=== PATIENT | female | born 1945 | race Caucasian/White ===

== ENCOUNTER → 2019-11-05 11:18 | Outpatient (CLI) | payer MEDICARE, SELFPAY ==
--- NOTE | ~2019-11-05 | MM_ITS ---
EXAMINATION: MM screening kj BI w patti HISTORY: Screening mammogram TECHNIQUE: Craniocaudal and mediolateral oblique 3-D tomosynthesis images were obtained and synthetic 2-D images were generated. CAD analysis was submitted and interpreted. COMPARISON: Comparison to multiple prior studies sequentially, with oldest reviewed study dated 08/10. BREAST PARENCHYMAL COMPOSITION: Breast composed of scattered areas of fibroglandular density. FINDINGS: There are developing scattered focal asymmetries in the right breast. There are developing masses in the upper outer quadrant of the left breast and central aspect of the left breast on CC vie w. There are scattered benign-appearing breast calcifications. IMPRESSION: 1. Developing bilateral breast asymmetries/masses. 2. Additional mammographic views and possible breast ultrasound are recommended. BI-RADS Category 0: Incomplete: Needs additional imaging evaluation. Reviewed, dictated and finalized at location A. INTERNSHIP IMPRESSION: 1. Developing bilateral breast asymmetries/masses. 2. Additional mammographic views and possible breast ultrasound are recommended . BI-RADS Category 0: Incomplete: Needs additional imaging evaluation.
== END ==
PROVIDERS: Visit Provider Internal Medicine
DX: Z12.31 Encounter for screening mammogram for malignant neoplasm of breast (principal); R92.8 Other abnormal and inconclusive findings on diagnostic imaging of breast
CPT/HCPCS: 77063; 77067

== ENCOUNTER → 2019-11-19 08:49 | Outpatient (CLI) | payer MEDICARE, SELFPAY ==
--- NOTE | ~2019-11-19 | MMUS_ITS ---
EXAMINATION: MM diagnostic mammo BI, US breast LT limited HISTORY: Bilateral breast asymmetries on screening mammogram TECHNIQUE: Additional 3-D tomosynthesis images of the breasts were performed and synthetic 2-D images were generated. CAD analysis was submitted and interpreted. High resolution limited left breast ultr asound was performed. COMPARISON: 11/05/2017, 10/17/2018, 09/02/2018, 08/31/2017, 08/29/2016 FINDINGS: MAMMOGRAPHIC FINDINGS: Right breast: Spot compression of the right breast demonstrates a return to baseline fibroglandular a ppearance in the areas questioned on screening mammogram. Left breast: There is a 5 mm oval, obscured, equal density mass in the middle third of the breast at the 6:00 location 7 cm from the nipple. An intramammary lymph node is noted in the posterior third of the outer breast. ULTRASOUND: There are cysts at the 6:00 location in the left breast which measure up to 5 mm, one of which corres ponds to the mammographic finding in question. IMPRESSION: 1. No mammographic or sonographic evidence of malignancy. 2. Recommend routine screening mammography in one year. BI-RADS Category 2: Benign finding(s). Reviewed, dictated and finalized at location A. IMPRESSION: 1. No mammographic or sonographic evidence of malignancy. 2. Recommend routine screening mammography in one year. BI-RADS Category 2: Benign finding(s).
== END ==
PROVIDERS: Visit Provider Internal Medicine
DX: R92.8 Other abnormal and inconclusive findings on diagnostic imaging of breast (principal)
CPT/HCPCS: 76642; 77066

== ENCOUNTER → 2021-01-31 14:14 | Outpatient (CLI) | payer MEDICARE, SELFPAY ==
--- NOTE | ~2021-01-31 | MM_ITS ---
EXAMINATION: MM screening kj BI w patti HISTORY: Screening mammogram TECHNIQUE: Craniocaudal and mediolateral oblique 3-D tomosynthesis images were obtained and synthetic 2-D images were generated. CAD analysis was submitted and interpreted. COMPARISON: 11/19/2019 bilateral diagnostic digital mammogram and limited left breast ultrasound 2 bilateral digital screening mammogram diagnostic right digital mammogram 08/29/2018 bilateral digital screening mammogram BREAST PARENCHYMAL COMPOSITION: The breasts are heterogeneously dense, which may obscure small masses . FINDINGS: There are scattered bilateral circumscribed subcentimeter opacities, more prominent on the left. Bilateral complete breast ultrasound examination is recommended. IMPRESSION: 1. Bilateral circumscribed breast masses. 2. Bilateral complete breast ultrasound examination is recommended. BI-RADS Category 0: Incomplete: Needs additional imaging evaluation. Reviewed, dictated and finalized at location A.
== END ==
PROVIDERS: Visit Provider Internal Medicine
DX: Z12.31 Encounter for screening mammogram for malignant neoplasm of breast (principal); R92.8 Other abnormal and inconclusive findings on diagnostic imaging of breast
CPT/HCPCS: 77063; 77067

== ENCOUNTER → 2021-03-22 14:17 | Outpatient (CLI) | payer MEDICARE, SELFPAY ==
--- NOTE | ~2021-03-22 | US_ITS ---
EXAMINATION: US breast BI complete HISTORY: Bilateral breast masses on screening mammogram TECHNIQUE: Complete bilateral breast ultrasound is performed including all four quadrants and the sub areolar aspects of both breasts. COMPARISON: 11/19/2019, 08/12/2014 FINDINGS: Right breast: There is a 7 mm x 4 mm oval, circumscribed, hypoechoic, not parallel mass wit h no posterior features or internal vascularity at the 6:00 location 1 cm from the nipple. There is a 5 mm x 3 mm oval, circumscribed, parallel, hypoechoic mass with no posterior features or internal va scularity at the 9:00 location 5 cm from the nipple. 2 mm masses with similar sonographic features ar e seen at the 7:00 location 7 cm from the nipple. There is a 4 mm x 2 mm mass with similar sonographi c features at the 3:00 location 4 cm from the nipple. A 3 mm cyst is noted near the right nipple. Left breast: There is a 4 mm round hypoechoic, circumscribed mass with no posterior features or inter nal vascularity at the 2:00 location 5 cm from the nipple. A 4 mm x 2 mm oval mass with otherwise sim ilar sonographic features is present at the 3:00 location 4 cm from the nipple. Additional similar ap pearing masses are seen at the 5:00 location 4 cm from the nipple, 6:00 location 3 cm from the nipple , and 8:00 location 4 cm from the nipple. IMPRESSION: Overall multiple similar appearing bilateral breast masses, considered benign. One at the 6:00 locati on 1 cm from the nipple in the right breast is probably benign however six month follow-up targeted r ight breast ultrasound is recommended. BI-RADS category 3, probably benign findings. Reviewed, dictated and finalized at location A. IMPRESSION: Overall multiple similar appearing bilateral breast masses, considered benign. One at the 6:00 location 1 cm from the nipple in the right breast is probably b enign however six month follow-up targeted right breast ultrasound is recommend ed. BI-RADS category 3, probably benign findings.
== END ==
PROVIDERS: Visit Provider Internal Medicine
DX: R92.8 Other abnormal and inconclusive findings on diagnostic imaging of breast (principal)
CPT/HCPCS: 76641

== ENCOUNTER → 2021-07-29 15:28 | Outpatient (CLI) | payer MEDICARE, SELFPAY ==
--- NOTE | ~2021-07-29 | XR_ITS ---
EXAMINATION: XR chest 2V DATE: 07/29/2021 15:42 INDICATION: Leukocytosis, unspecified. TECHNIQUE: Frontal and lateral views of the chest were obtained. COMPARISON: Chest single view 08/10/2018 FINDINGS: There is mild scarring at the lung apices. No pleural effusion or pneumothorax. The heart s ize is normal. IMPRESSION: 1. Stable mild scarring at the lung apices. Reviewed, dictated and finalized at location A. 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
== END ==
PROVIDERS: PCP Internal Medicine; Visit Provider Internal Medicine
DX: D72.829 Elevated white blood cell count, unspecified (principal)
CPT/HCPCS: 71046

== ENCOUNTER 2022-06-30 13:44 | Outpatient (CLI) | payer MEDICARE, SELFPAY ==
--- NOTE | ~2022-06-30 | DEXA_ITS ---
Bone Density Report Name: JOSE MIGUEL VERAS Age: 77 Sex: Female Ethnicity: White Date of : 1945 Indication: postmenopausal; screening for osteoporosis; height loss; cancer; asthma or emphysema; Referring Provider: [facility] Study: Bone densitometry was performed. Exam Date: June 30, 2022 Accession number: [id number] Bone Density: Region BMD T-score Z-score Classification AP Spine(L1-L4) 0.881 -1.5 1.0 Osteopenia Femoral Neck (Left) 0.588 -2.3 -0.2 Osteopenia Total Hip (Left) 0.836 -0.9 1.0 Normal Femoral Neck (Right) 0.616 -2.1 0.1 Osteopenia Total Hip (Right) 0.789 -1.3 0.7 Osteopenia Total Hip Mean 0.813 -1.1 0.9 Osteopenia World Health Organization criteria for BMD impression classify patients as: Normal (T-score at or above -1.0), Osteopenia (T-score between -1.0 and -2.5), or Osteoporosis (T-score at or below -2.5). 10-year Fracture Risk: FRAX not reported because: Treated for osteoporosis Clinical Information Provided by Patient: Is being treated for osteoporosis Has used the following medications: Reclast (i.e. zoledronate) Has the following medical conditions: Asthma or Emphysema, Cancer Patient maximum height was 62 Menopause Age: 40 No regular weight bearing exercise Onset of menses at age 16 Number of children 2 Impression: The patient has low bone mass, based on the Left Femoral Neck T-score. Discussion: It is important to ask patients whether they are taking their medications and to encourage continued and appropriate compliance with their osteoporosis therapies to reduce fracture risk. It is also important to review their risk factors and encourage appropriate calcium and vitamin D intakes, exercise, fall prevention and other lifestyle measures. Follow-Up: Consider a repeat BMD and Vertebral Fracture Assessment (VFA) exam in 2 years or sooner if medically necessary, to reassess this patient's status. Reported by: PAULA on 06/30/2022 2:06:00 PM. Reviewed, dictated and finalized at location A. GONSALO
== END 2022-06-30 13:45 | disposition home or self-care (01) ==
LOC: ANHIMG 13:46
PROVIDERS: PCP Internal Medicine; Visit Provider Internal Medicine
DX: Z78.0 Asymptomatic menopausal state (principal); M85.88 Other specified disorders of bone density and structure, other site; M85.852 Other specified disorders of bone density and structure, left thigh; M85.851 Other specified disorders of bone density and structure, right thigh
CPT/HCPCS: 77080

== ENCOUNTER 2023-06-03 10:00 | Observation (INO) | payer MEDICARE, SELFPAY ==
[2023-06-03] VITALS (24 sets, daily range): BP systolic 147–174; BP diastolic 57–89; PULSE 74–106; RESP 11–23; TEMP 36.2–36.8; O2SAT 89–100
--- NOTE | ~2023-06-03 | CT_ITS ---
EXAMINATION: CT brain wo con DATE: 06/03/2023 10:33 INDICATION: Vertigo TECHNIQUE: Computed tomography (CT) of the head was performed without intravenous contrast. The dose- length product was 529.67 mGy-cm. Automated exposure control and iterative reconstruction technique w ere employed. COMPARISON: CT dated 08/12/2018 FINDINGS: Mild generalized atrophy. There are scattered mild periventricular and subcortical white ma tter changes, most likely related to small vessel ischemic disease (microangiopathy). No acute intrac ranial hemorrhage, infarction, mass or mass effect. No ventriculomegaly or midline shift. Paranasal s inuses and mastoids are pneumatized. No depressed skull fractures. IMPRESSION: 1. No acute intracranial abnormality. Reviewed, dictated and finalized at location A.
--- NOTE | ~2023-06-03 | MR_ITS ---
EXAMINATION: MRA brain wo con DATE: 06/05/2023 12:57 INDICATION: Vertigo. TECHNIQUE: Magnetic resonance angiography (MRA) of the brain was performed without intravenous contra st with T1-weighted SPGR by the 3D [id number] technique. Maximum intensity projection 3D-reconstr uctions were obtained. COMPARISON: Head CT 06/03/2023, brain MRI 06/05/2023 FINDINGS: Left vertebral artery is dominant. There is no significant stenosis of basilar artery or the posterio r cerebral arteries. There is no significant stenosis of the intracranial internal carotid arteries o r anterior or middle cerebral arteries. Right A1 anterior cerebral artery segment is small, a normal variant. There is no aneurysm. IMPRESSION: 1. Normal MRA. Reviewed, dictated and finalized at location A. IMPRESSION: 1. Normal MRA.
--- NOTE | ~2023-06-03 | MR_ITS ---
EXAMINATION: MR brain/brain stem wo/w con DATE: 06/05/2023 12:53 INDICATION: Vertigo. TECHNIQUE: Magnetic resonance imaging (MRI) of the brain and brainstem was performed without and with 13 mL MultiHance intravenous contrast. COMPARISON: Head CT 06/03/2023 FINDINGS: There are scattered areas of nonspecific increased T2-weighted signal intensity in the cere bral white matter. There is no intracranial hemorrhage, acute infarction, or abnormal intracranial ma ss lesion. The ventricles are normal in size. There is mild mucosal thickening in the paranasal sinus es. There are likely changes of ocular lens replacement surgeries. The mastoid air cells are normal. IMPRESSION: 1. Mild nonspecific cerebral white matter disease, which likely represents chronic small vessel ische angie disease. Reviewed, dictated and finalized at location A. IMPRESSION: 1. 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
[2023-06-03] MEDS: MECLIZINE HCL 25 MG TABLET PO (10:13)
[2023-06-03] MEDS: diazePAM INJ (*CRX) 10 MG/2 ML SYRINGE 2 MG IV PUSH (10:13)
[2023-06-03] MEDS: ONDANSETRON INJ 4 MG/2 ML VIAL IV PUSH (10:13)
[2023-06-03 10:35] LABS: Basophils Absolute Auto 0.1 K/mm3 (0.0-0.1); Basophils Percent Auto 0.3 % (0.2-1.2); Hematocrit 48.1 % (37.0-47.0); Hemoglobin 16.4 g/dL (12.0-15.0); Immature Granulocyte Absolute 0.23 K/mm3 (0.00-0.031); Immature Granulocyte Percent A 0.7 % (0-0.5); Lymphocytes Absolute Auto 16.23 K/mm3 (0.9-3.2); Lymphocytes Percent Auto 50.5 % (18.3-44.2); Mean Corpuscular HGB Conc 34.1 g/dl (32-36); Mean Corpuscular Hemoglobin 31.4 pg (26-34); Mean Corpuscular Volume 92.1 fl (80-100); Mean Platelet Volume 9.8 fl (7.4-10.4); Monocytes Absolute Auto 0.7 K/mm3 (0.1-0.6); Monocytes Percent Auto 2.2 % (2.6-8.5); Neutrophils Absolute Auto 14.9 K/mm3 (1.3-6.7); Neutrophils Percent Auto 46.3 % (45.5-73.1); Platelet Count Result 223 k/mm3 (150-375); Red Blood Count 5.22 M/mm3 (4.2-5.4); Red Cell Distribution Width 12.9 % (11.5-14.5); White Blood Count 32.2 K/mm3 (4.5-10.0)
--- NOTE | 2023-06-03 10:39 | ED.GENADULT ---
HPI - General Adult General Chief complaint: Dizziness Stated complaint: vertigo Time Seen by Provider: 06/03/23 10:03 History of Present Illness HPI narrative: 70-year-old female presented the emergency department for evaluation of vertigo that started last night when she is resting and watching TV. Patient states she does have a spinning sensation does have associated nausea and vomiting. Patient reports symptoms are improved when she is lying flat and her eyes are closed. Patient does have a prior history of vertigo. Patient denies any ear pain or recent coughs colds or fevers. Patient does have nausea and vomiting but denies any associated abdominal pain or pain with urination. Patient denies any associated numbness or weakness. Related Data Home Medications Medication Instructions Recorded Confirmed aspirin 81 mg tablet,delayed 81 mg PO DAILY 12/06/22 12/06/22 release (Adult Low Dose Aspirin) budesonide-formoterol HFA 80 2 puff inhalation Q12H 12/06/22 12/06/22 mcg-4.5 mcg/actuation aerosol inhaler (Symbicort) fluticasone propionate 50 1 spray intranasal DAILY 12/06/22 12/06/22 mcg/actuation nasal spray,suspension (Allergy Relief (fluticasone)) lisinopril 40 mg tablet 40 mg PO DAILY 12/06/22 12/06/22 metoprolol succinate 50 mg 50 mg PO DAILY 12/06/22 12/06/22 tablet,extended release 24 hr sertraline 50 mg tablet 50 mg PO DAILY 12/06/22 12/06/22 Allergies Allergy/AdvReac Type Severity Reaction Status Date / Time codeine Allergy Intermediate HIVES, Verified 06/03/23 10:10 Nausea and Vomiting Review of Systems Review of Systems: All systems reviewed & are unremarkable except as noted in HPI and below PMFSH Past Medical History Medical History (Updated 06/03/23 @ 18:23 by Tramaine Tuttle MD) Anxiety Asthma Factor 5 Leiden mutation, heterozygous No history of thrombosis. 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 followed by Dr. Yusuf Stewart. Osteoarthritis involving multiple joints on both sides of body Osteoporosis Surgical History Surgical History History of abdominoplasty History of cataract extraction with lens replacement History of tonsillectomy Family History Family History Other Family history of arthritis Hypertension Social History Social History (Updated 06/03/23 @ 18:04 by Shu Serra PA-C) Social History: Surrogate medical decision maker: Kaylee Borrero, cousin. Code status: Full code. Smoking status: Never smoker Second hand tobacco smoke exposure: No Alcohol intake: never Substance use: never Substance use type: does not use Lack of Transportation: No Lack of Food: Never True Current Housing: I Have Housing Concerned About Future Housing: No Difficulty Paying Gas/Electric Bills: No Difficulty Paying for Meds: No Currently Unemployed: No Education: Decline to Answer Difficulty w/ Childcare or Family Care: No Living arrangements: alone Occupation/Education: retired Spiritual care concerns: No Exam Narrative: APPEARANCE: Ill-appearing HEAD: normocephalic, atraumatic. EYES: PERRLA/EOMI, conjunctivae clear. NOSE: Normal no drainage EARS:TMS clear with good light reflex. THROAT: Pharynx clear, no exudate. NECK: Supple. No adenopathy, no masses. RESPIRATORY: Airway patent, respirations nonlabored. Clear to auscultation bilaterally, no rales, rhonchi, wheezing. CARDIOVASCULAR: Regular rate and rhythm without murmurs rubs or gallops. ABDOMINAL: Soft, nontender, nondistended, normal bowel sounds MUSCULOSKELETAL: Moves all extremities. Strength/ROM intact, No edema, No calf tenderness. NEURO: Alert. Cranial nerves II through XII intact. No ataxia, no drift, normal strength and reflexes SKIN: Warm, dry. Normal Color Course Course Lidia
[2023-06-03 10:57] LABS: Alanine Aminotransferase 57 U/L (6-35); Albumin Level 5.1 g/dL (3.5-5.1); Alkaline Phosphatase 88 U/L (38-126); Anion Gap 19 mmol/L (8-16); Aspartate Amino Transferase 53 U/L (14-36); Bilirubin,Total 1.3 mg/dL (0.2-1.3); Blood Urea Nitrogen 11 mg/dL (7-17); Calcium 9.7 mg/dL (8.4-10.2); Carbon Dioxide 20 mmol/L (22-30); Chloride 104 mmol/L (98-107); Estimated CRCL calculation 51 ml/min; Estimated Glomerular Filt Rate > 60; Glucose 175 mg/dL (65-110); Potassium 3.2 mmol/L (3.4-5.0); Sodium 143 mmol/L (137-145)
[2023-06-03 11:03] LABS: Platelet Estimate Adequate (Adequate); Schistocytes None Seen (NORMAL)
[2023-06-03 11:04] LABS: Smudge Cells FEW
[2023-06-03] MEDS: METOCLOPRAMIDE HCL INJ 10 MG/2 ML VIAL IV PUSH (14:28)
--- NOTE | 2023-06-03 14:50 | ADMGEN ---
This patient, Candy Franklin, was admitted to [facility] Surg Room 321-02. Patient/family oriented to hospital policies and general routines including ID bracelet, bed and alarms, visiting hours, pain management, procedures, bathroom and other care routines, personal items, smoking policy, room service/diet, and visiting hours. Information on how to activate the Rapid Response Team has been discussed. Patient/Family are encouraged to report perceived risks to care and to ask questions if they do not understand what they are told or what they should do.
--- NOTE | 2023-06-03 17:45 | PM.IMHP ---
H&P: HPI History of Present Illness Date/Time: 06/03/23 15:00 Chief Complaint: Dizziness. Narrative: This is a 78-year-old female with history of vertigo, monoclonal B-cell lymphocytosis being monitored by Hematology, heterozygous factor 5 Leiden without history of thrombus, hypertension, hyperlipidemia, gastroesophageal reflux disease, and asthma who presented to the emergency department via EMS from home for evaluation of dizziness. The patient provides the following history. Yesterday while sitting down watching television she developed sudden onset of a severe spinning sensation associated with nausea and vomiting. These symptoms are similar to when she has had vertigo. It is worse with any sort of movement and is somewhat improved when lying flat with eyes closed. Today she could barely stand due to the vertigo and called 911. She denies syncope, near syncope, vision changes, focal weakness, paresthesias, facial droop, and difficulty speaking and swallowing. She also denies fever, chills, sweats, cold and flu symptoms, tinnitus, abrupt hearing loss, and cough. No chest pain, palpitations, or sensations of racing heart. She has not had any recent falls or head trauma. She was afebrile on arrival to the ED with a blood pressure 174/89. Pertinent labs include a WBC count of 32.2 (50.5% lymphocytes), hemoglobin 16.4, potassium 3.2, glucose 175, total protein 9.0, AST 53, ALT 57. Brain CT showed no acute intracranial abnormality. She received meclizine, diazepam, ondansetron, and metoclopramide in the ED with some improvement however she does not feel as though she would be safe to go home and she is being admitted in this setting. Review of Systems Review of Systems: Twelve systems were reviewed and are negative except for as per HPI. [facility] Past Medical History Medical History (Updated 06/03/23 @ 19:07 by Shu Serra PA-C) Anxiety Asthma Factor 5 Leiden mutation, heterozygous No history of thrombosis. 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 Followed by Dr. Yusuf Stewart. Osteoarthritis involving multiple joints on both sides of body Osteoporosis Surgical History Surgical History History of abdominoplasty History of cataract extraction with lens replacement History of tonsillectomy Family History Family History Other Family history of arthritis Hypertension Social History Social History Social History: Surrogate medical decision maker: Kaylee Borrero, cousin. Code status: Full code. Smoking status: Never smoker Second hand tobacco smoke exposure: No Alcohol intake: never Substance use: never Substance use type: does not use Lack of Transportation: No Lack of Food: Never True Current Housing: I Have Housing Concerned About Future Housing: No Difficulty Paying Gas/Electric Bills: No Difficulty Paying for Meds: No Currently Unemployed: No Education: Decline to Answer Difficulty w/ Childcare or Family Care: No Living arrangements: alone Occupation/Education: retired Spiritual care concerns: No Meds Home Medications and Allergies Home Medications Medication Instructions Recorded Confirmed Type aspirin 81 mg tablet,delayed 81 mg PO DAILY 12/06/22 12/06/22 History release (Adult Low Dose Aspirin) budesonide-formoterol HFA 80 2 puff inhalation Q12H 12/06/22 12/06/22 History mcg-4.5 mcg/actuation aerosol inhaler (Symbicort) fluticasone propionate 50 1 spray intranasal DAILY 12/06/22 12/06/22 History mcg/actuation nasal spray,suspension (Allergy Relief (fluticasone)) lisinopril 40 mg tablet 40 mg PO DAILY 12/06/22 12/06/22 History metoprolol succinate 50 mg 50 mg PO DAILY 12/06/22 12/06/22 History tablet,extended release 24 hr
[2023-06-03] MEDS: PROMETHAZINE HCL 25 MG/ML AMPUL 12.5 MG IV PUSH (18:24)
[2023-06-03] MEDS: LACTATED RINGERS 1,000 ML 100 ML IV CONT (20:17)
[2023-06-03] MEDS: POTASSIUM CHLORIDE 20 MEQ ER TABLET 40 MEQ PO (20:21)
[2023-06-04] VITALS (13 sets, daily range): BP systolic 150–171; BP diastolic 65–83; PULSE 73–97; RESP 16–18; TEMP 36.3–37.3; O2SAT 95–99
[2023-06-04 06:47] LABS: Hematocrit 44.4 % (37.0-47.0); Hemoglobin 14.7 g/dL (12.0-15.0); Mean Corpuscular HGB Conc 33.1 g/dl (32-36); Mean Corpuscular Hemoglobin 31.3 pg (26-34); Mean Corpuscular Volume 94.5 fl (80-100); Mean Platelet Volume 9.7 fl (7.4-10.4); Platelet Count Result 194 k/mm3 (150-375); Red Cell Distribution Width 13.6 % (11.5-14.5); White Blood Count 27.7 K/mm3 (4.5-10.0)
[2023-06-04] MEDS: METOPROLOL TARTRATE INJ 5 MG/5 ML VIAL IV PUSH (06:56)
[2023-06-04 07:02] LABS: Anion Gap 7 mmol/L (8-16); Blood Urea Nitrogen 10 mg/dL (7-17); Calcium 8.6 mg/dL (8.4-10.2); Carbon Dioxide 29 mmol/L (22-30); Chloride 106 mmol/L (98-107); Estimated CRCL calculation 51 ml/min; Estimated Glomerular Filt Rate > 60; Glucose 116 mg/dL (65-110); Hemoglobin A1C 5.6 % (<5.7); Magnesium 2.2 mg/dL (1.6-2.3); Potassium 3.4 mmol/L (3.4-5.0); Sodium 142 mmol/L (137-145)
[2023-06-04] MEDS: amLODIPine BESYLATE 5 MG TABLET PO (09:15)
[2023-06-04] MEDS: METOPROLOL SUCCINATE EXT REL 50 MG TABCR PO (09:15)
[2023-06-04] MEDS: lisinopriL 20 MG TABLET 40 MG PO (09:15)
--- NOTE | 2023-06-04 15:52 | PM.IMPN ---
Progress Note: A&P Assessment and Plan (1) Vertigo: Code(s): R42 - Dizziness and giddiness Status: Acute (2) Hypokalemia: Code(s): E87.6 - Hypokalemia Status: Acute (3) Monoclonal B-cell lymphocytosis: Code(s): D72.820 - Lymphocytosis (symptomatic) Status: Acute (4) Hyperglycemia: Code(s): R73.9 - Hyperglycemia, unspecified Status: Acute (5) Hypertension: Code(s): I10 - Essential (primary) hypertension Status: Acute (6) Hyperlipidemia: Code(s): E78.5 - Hyperlipidemia, unspecified Status: Acute (7) Asthma: Code(s): J45.909 - Unspecified asthma, uncomplicated Status: Acute Plan The patient presented to the emergency department via EMS for evaluation of severe vertigo which began suddenly yesterday while watching television. Associated nausea and vomiting. Similar episode 4 years ago. Improved with closing the eyes and sitting still. No upper respiratory symptoms no headaches patient treated with Valium meclizine HCT is negative. Will do MRI MRA to rule out posterior circulation problem. Elevated white cell count with history of CLL follows with Dr. Stewart. Discussed need for MRI and will give angiolytic prior to the test. PT OT to see underlying hypertension. History of heterozygous factor 5 Leiden with no history of thrombosis. Previous WBC count was 18 since certainly is higher than previous levels will continue to monitor this. History of anxiety depression on sertraline history of osteoporosis Subjective Date/time seen: 06/04/23 15:52 Interval history: Patient feels a little better today. No nausea vomiting tolerating clear liquids. Similar symptoms 4 years ago Review of Systems Review of Systems: All systems reviewed & are unremarkable except as noted in HPI and below Exam Narrative: General: Well-developed, bit anxious HEENT: Normocephalic, atraumatic. PERRL, EOMI. Sclera anicteric. Oral mucosa moist. Oropharynx clear. Neck: Supple. No obvious carotid bruits. Respiratory: Lungs are clear to auscultation bilaterally. Cardiovascular: Regular rate and rhythm with S1-S2. Gastrointestinal: Abdomen is soft, nontender, and nondistended with positive bowel sounds. Skin: Warm and dry. No rash or lesions on limited exam. Extremities: No cyanosis, clubbing, or edema. Radial and pedal pulses intact. Neurological: Alert and oriented. Cranial nerves 2-12 are grossly intact. Right-sided horizontal nystagmus present. Speech is clear. No facial asymmetry. No pronator drift. Normal [id number]-pa-[id number]. Strength 5/5 in upper and lower extremities Psychiatric: Anxious. Objective Data Vital Signs Vital Signs: Vital Signs - 24 hr 06/03/23 16:00 06/03/23 21:48 06/03/23 20:17 Temperature 98.3 F Pulse Rate 91 88 94 Respiratory Rate 20 Blood Pressure 148/57 H Pulse Oximetry 97 Oxygen Delivery 06/04/23 00:00 06/04/23 04:00 06/04/23 05:53 Temperature 99.2 F Pulse Rate 91 73 86 Respiratory Rate 18 Blood Pressure 168/74 H Pulse Oximetry 99 Oxygen Delivery 06/04/23 06:52 06/04/23 06:56 06/04/23 08:13 Temperature 98.1 F Pulse Rate 88 82 Respiratory Rate Blood Pressure 171/83 H Pulse Oximetry 97 Oxygen Delivery Room Air 06/04/23 09:15 06/04/23 08:00 06/04/23 08:00 Temperature Pulse Rate 80 86 Respiratory Rate Blood Pressure 150/65 H Pulse Oximetry Oxygen Delivery Room Air 06/04/23 14:10 06/04/23 14:00 Temperature 98.3 F Pulse Rate 77 Respiratory Rate 16 Blood Pressure 156/70 H Pulse Oximetry 96 Oxygen Delivery Room Air Intake/Output Intake/Output: Intake & Output 06/01/23 06/02/23 06/03/23 06/04/23 23:59 23:59 23:59 23:59 Intake Total 0 218 Output Total 600 Balance 0 -382 Meds/Results Medications: Active Medications Generic Name Dose Route Start Last Admin Trade Name Freq PRN Reason Stop Dose Admin Acetami
[2023-06-04] MEDS: SERTRALINE HCL 50 MG TABLET PO (17:24)
[2023-06-05] VITALS: PULSE 70
[2023-06-05 04:00] VITALS: PULSE 65
[2023-06-05 06:00] VITALS: BP 163/73; PULSE 76; RESP 16; TEMP 36.9; O2SAT 97
[2023-06-05 06:37] LABS: Basophils Absolute Auto 0.1 K/mm3 (0.0-0.1); Basophils Percent Auto 0.5 % (0.2-1.2); Eosinophils Absolute Auto 0.1 K/mm3 (0-0.3); Eosinophils Percent Auto 0.3 % (0-4.4); Hematocrit 44.5 % (37.0-47.0); Hemoglobin 14.6 g/dL (12.0-15.0); Immature Granulocyte Absolute 0.14 K/mm3 (0.00-0.031); Immature Granulocyte Percent A 0.6 % (0-0.5); Lymphocytes Absolute Auto 12.91 K/mm3 (0.9-3.2); Lymphocytes Percent Auto 56.6 % (18.3-44.2); Mean Corpuscular HGB Conc 32.8 g/dl (32-36); Mean Corpuscular Hemoglobin 31.1 pg (26-34); Mean Corpuscular Volume 94.9 fl (80-100); Mean Platelet Volume 9.7 fl (7.4-10.4); Monocytes Absolute Auto 1.1 K/mm3 (0.1-0.6); Monocytes Percent Auto 4.6 % (2.6-8.5); Neutrophils Absolute Auto 8.5 K/mm3 (1.3-6.7); Neutrophils Percent Auto 37.4 % (45.5-73.1); Platelet Count Result 195 k/mm3 (150-375); Red Blood Count 4.69 M/mm3 (4.2-5.4); Red Cell Distribution Width 13.5 % (11.5-14.5); White Blood Count 22.8 K/mm3 (4.5-10.0)
[2023-06-05 06:46] LABS: Alanine Aminotransferase 56 U/L (6-35); Alkaline Phosphatase 61 U/L (38-126); Anion Gap 10 mmol/L (8-16); Aspartate Amino Transferase 59 U/L (14-36); Bilirubin,Total 1.6 mg/dL (0.2-1.3); Blood Urea Nitrogen 11 mg/dL (7-17); Calcium 8.6 mg/dL (8.4-10.2); Carbon Dioxide 25 mmol/L (22-30); Chloride 104 mmol/L (98-107); Estimated CRCL calculation 59 ml/min; Estimated Glomerular Filt Rate > 60; Glucose 111 mg/dL (65-110); Magnesium 2.6 mg/dL (1.6-2.3); Potassium 3.4 mmol/L (3.4-5.0); Sodium 139 mmol/L (137-145)
[2023-06-05 08:00] VITALS: PULSE 70
[2023-06-05] MEDS: PANTOPRAZOLE 40 MG TABLET PO (08:56)
[2023-06-05] MEDS: ATORVASTATIN 20 MG TABLET PO (08:57)
[2023-06-05] MEDS: ASPIRIN 81 MG ENTERIC TABLET PO (08:57)
[2023-06-05] MEDS: SERTRALINE HCL 50 MG TABLET PO (08:57)
[2023-06-05] MEDS: amLODIPine BESYLATE 5 MG TABLET PO (08:57)
[2023-06-05] MEDS: METOPROLOL SUCCINATE EXT REL 50 MG TABCR PO (08:57)
[2023-06-05] MEDS: lisinopriL 20 MG TABLET 40 MG PO (08:57)
--- NOTE | 2023-06-05 11:24 | PCPTNOTE ---
Patient declined PT services stating she has been ambulating to the bathroom and back to bed with w/w without difficulty. Patient states she gets up frequently. Patient states she does not need further PT.
[2023-06-05 12:00] VITALS: PULSE 69
[2023-06-05] MEDS: LORazepam (*CRX) 1 MG TABLET PO (12:05)
[2023-06-05 14:00] VITALS: BP 149/77; PULSE 73; RESP 18; TEMP 36.9; O2SAT 96
--- NOTE | 2023-06-05 17:25 | PM.DS ---
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 Associated nausea and vomiting.? Similar episode 4 years ago.? Improved with closing the eyes and sitting still.? No upper respiratory symptoms no headaches patient treated with Valium meclizine HCT is negative.? MRI MRI was performed which came back negative.? Elevated white cell count with history of CLL follows with Dr. Stewart.? PT OT to see in cleared for discharge. She symptomatically improved as well. Will continue meclizine p.r.n.. She has underlying hypertension.? History of heterozygous factor 5 Leiden with no history of thrombosis.? Previous WBC count was 18 since certainly is higher than previous levels will continue to monitor this and continue to improve with no signs of infection.? History of anxiety depression on sertraline history of osteoporosis Time Spent with Patient Time attestation: Total time spent providing and/or coordinating discharge services: 35 minutes Exam Narrative: General: Well-developed, bit anxious HEENT: Normocephalic, atraumatic. PERRL, EOMI. Sclera anicteric. Oral mucosa moist. Oropharynx clear. Neck: Supple. No obvious carotid bruits. Respiratory: Lungs are clear to auscultation bilaterally. Cardiovascular: Regular rate and rhythm with S1-S2. Gastrointestinal: Abdomen is soft, nontender, and nondistended with positive bowel sounds. Skin: Warm and dry. No rash or lesions on limited exam. Extremities: No cyanosis, clubbing, or edema. Radial and pedal pulses intact. Neurological: Alert and oriented. Cranial nerves 2-12 are grossly intact. Right-sided horizontal nystagmus present. Speech is clear. No facial asymmetry. No pronator drift. Normal [id number]-mxgt. Strength 5/5 in upper and lower extremities Psychiatric: Anxious. DS: Data Data Completed and Pending Labs on day of discharge: Labs from last 24 hours 06/05/23 06:23 WBC 22.8 H RBC 4.69 Hgb 14.6 Hct 44.5 MCV 94.9 MCH 31.1 MCHC 32.8 RDW 13.5 Plt Count 195 MPV 9.7 Immature Gran % (Auto) 0.6 H Neut % (Auto) 37.4 L Lymph % (Auto) 56.6 [place] % (Auto) 4.6 Eos % (Auto) 0.3 Baso % (Auto) 0.5 Lymph # (Auto) 12.91 [place] # (Auto) 1.1 H Eos # (Auto) 0.1 Baso # (Auto) 0.1 Abs Immat Gran (auto) 0.14 H Absolute Neuts (auto) 8.5 H Absolute Nucleated RBC 0.0 Nucleated RBC % 0.0 Sodium 139 Potassium 3.4 Chloride 104 Carbon Dioxide 25 Anion Gap 10 BUN 11 Creatinine 0.60 L Estim Creat Clear Calc 59 Estimated GFR > 60 Glucose 111 H Calcium 8.6 Magnesium 2.6 H Total Bilirubin 1.6 H AST 59 H ALT 56 H Alkaline Phosphatase 61 Total Protein 7.0 Albumin 4.0 Imaging Radiologist's impression: ITS Impressions Head CT 06/03/23 10:34 IMPRESSION: 1. No acute intracranial abnormality. Brain MRI 06/05/23 12:59 IMPRESSION: 1. Mild nonspecific cerebral white matter disease, which likely represents chronic small vessel ischemic disease. Brain MRA 06/05/23 13:02 IMPRESSION: 1. Normal MRA. Discharge Plan
== END 2023-06-05 17:55 | disposition home or self-care (01) ==
LOC: ANHED 10:39 → ANH3MEDSUR 14:40
PROVIDERS: Physician Assistant; Admitting Provider Student in an Organized Health Care Education/Training Program; Emergency Provider Emergency Medicine; PCP Nurse Practitioner Family; Visit Provider Internal Medicine
DX: R42 Dizziness and giddiness (principal); R11.2 Nausea with vomiting, unspecified; F41.9 Anxiety disorder, unspecified; J45.909 Unspecified asthma, uncomplicated; D68.51 Activated protein C resistance; E87.6 Hypokalemia; E78.5 Hyperlipidemia, unspecified; R90.82 White matter disease, unspecified; K21.9 Gastro-esophageal reflux disease without esophagitis; D72.829 Elevated white blood cell count, unspecified; I10 Essential (primary) hypertension; R73.9 Hyperglycemia, unspecified; D72.820 Lymphocytosis (symptomatic); M15.9 Polyosteoarthritis, unspecified; M81.0 Age-related osteoporosis without current pathological fracture; Z79.82 Long term (current) use of aspirin; Z79.51 Long term (current) use of inhaled steroids; Z79.899 Other long term (current) drug therapy; Z82.61 Family history of arthritis; Z82.49 Family history of ischemic heart disease and other diseases of the circulatory system
CPT/HCPCS: 36415; 70450; 70544; 70553; 80048; 80053; 83036; 83735; 85025; 85027; 96374; 96375; 96376; 97161; 97165; 99285; A9270; A9577; G0378; J2405; J2550; J2765; J3360; J7120

== ENCOUNTER 2024-06-16 14:26 | Outpatient (CLI) | payer MEDICARE, SELFPAY ==
[2024-06-16 14:42] LABS: Basophils Absolute Auto 0.1 K/mm3 (0.0-0.1); Basophils Percent Auto 0.4 % (0.2-1.2); Eosinophils Absolute Auto 0.3 K/mm3 (0-0.3); Eosinophils Percent Auto 1.5 % (0-4.4); Hematocrit 44.6 % (37.0-47.0); Hemoglobin 14.7 g/dL (12.0-15.0); Immature Granulocyte Absolute 0.04 K/mm3 (0.00-0.031); Immature Granulocyte Percent A 0.2 % (0-0.5); Lymphocytes Absolute Auto 16.53 K/mm3 (0.9-3.2); Lymphocytes Percent Auto 72.2 % (18.3-44.2); Mean Corpuscular Hemoglobin 31.1 pg (26-34); Mean Corpuscular Volume 94.5 fl (80-100); Mean Platelet Volume 9.7 fl (7.4-10.4); Monocytes Absolute Auto 1.6 K/mm3 (0.1-0.6); Monocytes Percent Auto 6.9 % (2.6-8.5); Neutrophils Absolute Auto 4.3 K/mm3 (1.3-6.7); Neutrophils Percent Auto 18.8 % (45.5-73.1); Platelet Count Result 184 k/mm3 (150-375); Red Blood Count 4.72 M/mm3 (4.2-5.4); White Blood Count 22.9 K/mm3 (4.5-10.0)
[2024-06-16 14:50] LABS: Atypical Lymphocytes Present; Platelet Estimate Adequate (Adequate); Schistocytes None Seen; Smudge Cells PRESENT
[2024-06-16 16:48] LABS: Alanine Aminotransferase 34 U/L (6-35); Albumin Level 4.4 g/dL (3.5-5.1); Alkaline Phosphatase 78 U/L (38-126); Anion Gap 7 mmol/L (4-12); Aspartate Amino Transferase 38 U/L (14-36); Bilirubin,Total 1.1 mg/dL (0.2-1.3); Blood Urea Nitrogen 13 mg/dL (7-17); Calcium 9.3 mg/dL (8.4-10.2); Carbon Dioxide 32 mmol/L (22-30); Chloride 102 mmol/L (98-107); Estimated Glomerular Filt Rate > 60; Glucose 92 mg/dL (65-110); Lactate Dehydrogenase 212 U/L (120-246); Potassium 3.5 mmol/L (3.4-5.0); Sodium 141 mmol/L (137-145)
== END 2024-06-16 14:27 | disposition home or self-care (01) ==
LOC: ANHLAB 14:29
PROVIDERS: PCP Nurse Practitioner Family; Visit Provider Internal Medicine Hematology & Oncology
DX: C91.10 Chronic lymphocytic leukemia of B-cell type not having achieved remission (principal)
CPT/HCPCS: 36415; 80053; 83615; 85025

== ENCOUNTER 2024-11-18 13:39 | Outpatient (CLI) | payer MEDICARE, SELFPAY ==
--- NOTE | ~2024-11-18 | XR_ITS ---
XR knee RT min 4V Ordering provider: Namita Mccarthy NP History: . M25.561 - Pain in right knee X 20 YRS . Comparison: None. FINDINGS: BONES: No acute fracture or dislocation. Lucency seen in the lateral compartment of the patella with no definite fracture. Clinical correlatio n for tenderness advised. JOINT SPACES: Narrowing of the medial compartment and narrowing of the patellofemoral joint. Marginal osteophytes in the patella. SOFT TISSUES: Normal. IMPRESSION: No definite acute osseous abnormality right knee. Mild to moderate osteoarthritic changes. Reviewed, dictated and finalized at location A.
--- NOTE | ~2024-11-18 | XR_ITS ---
XR knee LT min 4V Ordering provider: Namita Mccarthy NP History: . M25.561 - Pain in right knee . Comparison: None. FINDINGS: BONES: No acute fracture or dislocation. JOINT SPACES: Narrowing of the medial compartment. Severe osteoarthritic changes of the patellofemora l joint with severe narrowing and marginal osteophytes. SOFT TISSUES: Normal. IMPRESSION: No acute osseous abnormality left knee. Severe osteoarthritic changes. Reviewed, dictated and finalized at location A.
--- OUTSIDE RECORDS SUMMARY | 2024-11-18 15:24 | XMS_ITS | Encounter Summary ---
Author Organization [facility] Address 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
--- OUTSIDE RECORDS SUMMARY | 2024-11-18 15:24 | XMS_ITS | Encounter Summary ---
Author Organization [facility] Address [address] [place] [address] Care Team Providers Care Forensic Psychiatrist Name Role Phone Unavailable Primary Care Provider Unavailabl e Encounter Details Date Type Department Care Team (Latest Contact Info) Description 12/11/2008 Outpatient Historical [facility] Guero Salguero MD [address] [facility] [address] [place] [address] Melanoma of Skin, Site Unspecified (CMS/HCC); Malig Jaleel Skin Face NEC; Other Postprocedural Status; Unspecified Essential Hypertension; Encounter for Long-Term (Current) Use of Other Medications Social History Tobacco Use Types Packs/Day Years Used Date Smoking Tobacco: Never Assessed Comments Unknown Sex and Gender Information Value Date Recorded Sex Assigned at Not on file 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 [address] [place] [address] Arsh Mayberry MD [address] [facility] [address] [place] [address] documented as of this encounter Procedures Procedure Name Priority Date/Time Associated Diagnosis Comments HEMOGLOBIN AND HEMATOCRIT Routine 12/11/2008 2:25 PM CDT BASIC METABOLIC PANEL Routine 12/11/2008 2:25 PM CDT documented in this encounter Results * HEMOGLOBIN AND HEMATOCRIT (12/11/2008 2:25 PM CDT) HEMOGLOBIN 13.5 11.8 - 14.8 g/dL [facility] HEMATOCRIT 42.2 35.5 - 44.0 % [facility] Blood specimen (specimen) 12/11/2008 2:25 PM CDT 12/11/2008 3:15 PM CDT us Guero Salguero MD HEMATOLOGY ORDERABLES Final Resu lt INTERFACE SYSTEM Refer to clinic/hospital department [facility] CLIA# [id number] [address] JASS FLOYDJENNY REID CREROSALIO SAMS [id number] * (ABNORMAL) BASIC METABOLIC PANEL (12/11/2008 2:25 PM CDT) CREATININE 0.93 0.51 - 0.95 mg/dL [facility] POTASSIUM 3.1(L) 3.5 - 4.9 mmol/L [facility] BUN 15 6 - 20 mg/dL [facility] CHLORIDE 103 96 - 108 mmol/L [facility] GLUCOSE 120(H) 65 - 99 mg/dL [facility] SODIUM 141 135 - 145 mmol/L [facility] CALCIUM 9.4 8.6 - 10.2 mg/dL [facility] CO2 28 22 - 30 mmol/L [facility] GFR, >60 >=60 mL/min/1. 7 sq meter [facility] GFR >60 >=60 mL/min/1. 7 sq meter [facility] Comment: Modification of Diet in Renal Disease (MDRD) study formula. Estimated GFR rate interpretative information for both Americans and non- Americans is available on the [facility] Intranet at: [email or web address] Select: Lab Policies and Procedures Select: Reference Ranges - GFR Blood specimen (specimen) 12/11/2008 2:25 PM CDT 12/11/2008 3:15 PM CDT us Guero Salguero MD CHEMISTRY ORDERABLES Edited INTERFACE SYSTEM Refer to clinic/hospital department [facility] CLIA# [id number] [address] [place] [address] documented in this encounter Visit Diagnoses Diagnosis Melanoma of skin, site unspecified (CMS/HCC) Melanoma of skin, site unspecified Other and unspecified malignant neoplasm of skin of other and unspecified parts of face Other postprocedural status(V45.89) Other postprocedural status Unspecified essential hypertension Encounter for long-term (current) use of other medications documented in this encounter
--- OUTSIDE RECORDS SUMMARY | 2024-11-18 15:24 | XMS_ITS | Encounter Summary ---
Author Organization [facility] Address [address] [place] [address] Phone Care Team Providers Care Benzene Washer Name Role Phone Alexy Renteria MD Primary Care Provider [phone] Yusuf Stewart DO Unavailable [phone] Namita Mccarthy APRN, CNP Primary Care Provider + Encounter Details Date Type Department Care Team (Late st Contact Info) Description 10/07/2021 Telephone [facility] [address] [place] [address] Yusuf Stewart, [address] [place] [address] Social History Tobacco Use Types Packs/Day Years Used Date Smoking Tobacco: Never Assessed Comments Unknown Sex and Gender Information Value Date Recorded Sex Assigned at Not on file Legal Sex Female 2:38 PM 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 ORDER 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 Gender Identity Not on file Sexual Orientation Not on file documented as of this encounter Miscellaneous Notes * Telephone Encounter - Jillian Mccloud - 10/07/2021 9:52 AM CST PT HAS CANCELLED 2 PRIOR NEW PT APPT, I CALLED AGAIN 10/07/2021 @ 950AM TO TRY TO RESCHEDULE, LEFT V/M ON PHONE, CALLED DR RENTERIA TO ADVISE HIM ALSO S ORDER PROCESSOR documented in this encounter Plan of Treatment Not on file documented as of this encounter Visit Diagnoses Not on filedocumented in this encounter Care Teams Benzene Washer Relationship Specialty Start Date End Date Alexy Renteria MD [address] [facility] [address] [place] [address] PCP - General Internal Medicine 08/15/21 05/20/23 Namita Mccarthy APRN, SHEAR HELPER [address] [place] [address] [address] [place] [address] PCP - General Advanced Practice Nurse 05/21/23 Yusuf Stewart DO [address] [place] [phone] Consulting Physician Oncology 08/15/21 documented as of this encounter
--- OUTSIDE RECORDS SUMMARY | 2024-11-18 15:24 | XMS_ITS | Encounter Summary ---
Author Organization [facility] Address [address] [place] [address] Care Team Providers Care Power Plant Installer Name Role Phone Alexy Wright MD Primary Care Provider [phone] Encounter Details Date Type Department Care Team (Late st Contact Info) Description 07/26/2022 Therapy Plan [facility] [address] [place], [place] [address] Alexy Wright MD [address] [place] [address] Social History Tobacco Use Types Packs/Day Years Used Date Smoking Tobacco: Never Smokeless Tobacco: Never Alcohol Use Standard Drinks/Week Comments No 0 (1 standard drink = 0.6 oz pur e alcohol) AUDIT-C Answer Date Recorded Frequency of Alcohol Consumption Never 07/07/2019 Average Number of Drinks Not on file 019 Frequency of Binge Drinking Not on file 06/11 Comments Unknown Sex and Gender Information Value Date Recorded Sex Assigned at Not on file Legal Sex Female 12:47 PM CDT Gender Identity Not on file Sexual Orientation Not on file documented as of this encounter Plan of Treatment Not on file documented as of this encounter Visit Diagnoses Diagnosis Disorder of bone density and structure, unspecified- Primary documented in this encounter Care Teams Power Plant Installer Relationship Specialty Start Date End Date Alexy Wright MD [address] [place] [address] PCP - General INTERNAL MEDICINE 07/03/19 documented as of this encounter
--- OUTSIDE RECORDS SUMMARY | 2024-11-18 15:24 | XMS_ITS | Encounter Summary ---
Author Organization [facility] Address 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
--- OUTSIDE RECORDS SUMMARY | 2024-11-18 15:24 | XMS_ITS | Clinical Summary ---
Author Organization [facility] Address [address] [place] [address] Care Team Providers Care Milk Pickup Truck Driver Name Role Phone Unavailable Primary Care Provider Unavailabl e Allergies Active Allergy Reactions Criticality Noted Date Comments Codeine Rash,Nausea and Vomiting Low 07/07/2019 Medications ALPRAZolam (XANAX) 0.25 mg tablet Take 0.25 mg by mouth 2 times daily. 3 Active amLODIPine (NORVASC) 5 mg tablet Take 5 mg by mouth daily. Active aspirin (GERARDO CHEWABLE) 81 mg Tablet, Chewable Take 81 mg by mouth daily. Active lisinopriL (PRINIVIL) 40 mg tablet Take 40 mg by mouth daily. Active metoprolol succinate (TOPROL XL) 50 mg Extended Release 24 hour tablet Take 50 mg by mouth daily. 2 Active pantoprazole (PROTONIX) 40 mg Tablet, Delayed Release (E.C.) Take 40 mg by mouth daily. Active sertraline (ZOLOFT) 50 mg tablet Take 50 mg by mouth daily. Active zoledronic fszy-xtyngseR-o ater (RECLAST) 5 mg/100 mL Piggyback Inject 5 mg by intravenous injection. Active Active Problems No known active problems Encounters Date Type Department Care Team Description 10/29/2024 External Device Data STL ABSTRACTION Provider, Abstract 10/08/2024 External Device Data STL ABSTRACTION Provider, Abstract 10/02/2024 External Device Data STL ABSTRACTION Provider, Abstract from Last 3 Months Family History Medical History Relation Name Comments Diabetes Father Diabetes Mother Breast Cancer Sister 1 Diabetes Sister 2 Relation Name Status Comments Father Mother Sister 1 Alive Sister 2 Alive Social History Tobacco Use Types Packs/Day Years Used Date Smoking Tobacco: Never Smokeless Tobacco: Never Tobacco Cessation:Counseling Given: Not Answered Alcohol Use Standard Drinks/Week Comments Not Currently 0 (1 standard drink = 0.6 oz pur e alcohol) once a year Comments Unknown Sex and Gender Information Value Date Recorded Sex Assigned at Not on file Legal Sex Female 4:12 AM RESIN SHAVER Gender Identity Not on file Sexual Orientation Not on file Last Filed Vital Signs Vital Sign Reading Time Taken Comments Blood Pressure 168/86 06/16/2024 1:35 PM CDT Pulse 60 06/16/2024 1:35 PM CDT Temperature 36 C (96.8 F) 06/16/2024 1:35 PM CDT Respiratory Rate 16 06/16/2024 1:35 PM CDT Oxygen Saturation 95% 06/16/2024 1:35 PM CDT Inhaled Oxygen Concentration - - Weight 67.1 kg (148 lb) 06/16/2024 1:35 PM CDT Height 154.9 cm (5' 1 ) 06/16/2024 1:35 PM CDT Body Mass Index 27.96 06/16/2024 1:35 PM CDT Plan of Treatment Upcoming Encounters Date Type Department Care Team (Late st Contact Info) Description 12/15/2024 1:15 PM CDT Office Visit [facility] Oncology and Hematology - [place] [address] [facility] [address] [place] [address] Arsh Mayberry MD [address] [facility] [address] [place] [address] Health Maintenance Due Date Last Done Comments DTAP/TDAP/TD VACCINES (1 - Tdap) 01/17/1964 ZOSTER VACCINE (1 of 2) 01/17/1964 RSV VACCINE (60+ or ) (1 - 1-dose 75+ series) 01/17/2020 PNEUMOCOCCAL VACCINE 50+ YEA RS (2 of 2 - PCV) 05/04/2021 05/04/2020 INFLUENZA VACCINE (#1) 2024 2, 07/19/2022, 06/21/2021, Additional history exists OSTEOPOROSIS SCREENING Completed 09/09/2018 Insurance MEDICARE PART A AND B
--- OUTSIDE RECORDS SUMMARY | 2024-11-18 15:24 | XMS_ITS | Data Portability ---
Author Organization [place] - [facility], [employer] Address [address] [address] Assessment Encounter Date Assessment Date Assessment LastModified by Organization Details LastModified Time 11/24/2020 11/24/2020 Recommended healthy nutrition, including a diet rich in fruits and vegetables, minimizing simple carbohydrates, salt, and saturated fats. Encouraged regular cardiovascular exercise such as walking at least 30 minutes daily, 5 times per week. Emphasized preventive health measures and educated pt on fall prevention and community-based lifestyle interventions to help reduce health risks and promote healthy living. Not available 11/24/2020 15:56:21 05/27/2021 05/27/2021 Patient presente d for follow up. Studies ordered as below. Discussed plan with patient/caregiver , who expressed understanding. Follow up as noted below. [email or web address] Not available 05/27/2021 12:07:20 10/05/2021 10/05/2021 Patient presente d for follow up. Studies ordered as below. Discussed plan with patient/caregiver , who expressed understanding. Follow up as noted below. Not available 10/05/2021 16:48:49 04/04/2022 04/04/2022 Patient presente d to office today for their Medicare Annual Wellness Visit. Education was provided on healthy nutrition, including a diet rich in fruits and vegetables, minimizing simple carbohydrates, salt, and saturated fats. Encouraged regular cardiovascular exercise such as walking at least 30 minutes daily, 5 times per week. Emphasized preventive health measures and educated pt on fall prevention and community-based lifestyle interventions to help reduce health risks and promote healthy living. Not available 04/04/2022 12:28:58 10/06/2022 10/06/2022 Patient presente d for follow up. Studies ordered as below. Discussed plan with patient/caregiver , who expressed understanding. Follow up as noted below. Not available 10/06/2022 11:47:41 Plan of Treatment Reminders Order Date Submit Date Provider Last Modified By Organization Details Last Modified Time Details Appointments None recorded. Lab CBC w/ auto diff 2022 023 [employer] [facility], [address] [facility] [address], [place], [address], 3 09:28:03 CMP, serum or plasma 2022 023 [employer] [facility], [address], [address], 3 09:28:03 TSH, serum or plasma 2022 023 [employer] [facility], [address] [facility] [address] [address], [place], [address], 3 09:28:03 T4, free, serum 2022 023 [employer] [facility], [address] [facility] [address], [place], [address], 3 09:28:03 T3, free, serum or plasma 2022 023 [employer] [facility], [address] [facility] [address], [place], [address], 3 09:28:03 vitamin B1 (thiamine), blood 2022 023 [employer] [facility], [address] [facility] [address], [place], [address], 3 09:28:03 vitamin B6 (pyridoxine ), plasma 2022 023 [employer] [facility], [address] [facility] [address], [place], [address], 3 09:28:03 vitamin B12, serum 2022 023 [employer] [facility], [address], [place], [address], 3 09:28:04 folate, RBC 2022 023 [employer] [facility], [address] [address], [place], [address], 3 09:28:04 unlisted lab - RPR (DX) w/refl titer and confirm testing (refl) 2022 023 [employer] [facility], [address] [address], [place], [address], 3 09:28:04 lipid panel, serum 2021 022 [email or web address] Not available 2 10:18:38 CMP, serum or plasma 2021 022 [facility] Not available 2 10:18:39 PTH (parathyroi d hormone), intact + calcium, serum or plasma 2021 022 [facility] Not available 2 10:18:39 phosphorus, serum or plasma 2021 022 [facility] Not available 2 10:18:39 vitamin D, 25-hydroxy, total, serum 2021 022 [facility] Not available 2 10:18:39 microalbumi n/creatinin e, mass ratio, urine 2021 022 [facility] Not available 2 10:18:39 CBC w/ auto diff 2021 022 [facility]fer Not available 2 10:18:38 CBC w/ auto diff 2021 022 [facility] Not available 2 15:12:32 microalbumi n/creatinin e, mass ratio, urine 2021 [facility] Not available 15:12:37 PTH (parathyroi d hormone), intact + calcium, serum or plasma 2021 [facility] Not [facility] 08:31:26 phosphorus, serum or plasma 2021 [facility] Not available 15:12:35 vitamin D, 25-hydroxy, total, serum 2021 [facility] Not available 15:12:36 lipid panel, serum 2021 [facility] Not available 15:12:34 CMP, serum or plasma 2021 [facility] Not available 15:12:33 CBC w/ auto diff 2020 [employer] [facility], [address], [address], 08:04:14 microalbumi n/creatinin e, mass ratio, urine 2020 [employer] [facility], [address], [address], 08:04:13 PTH (parathyroi d hormone), intact + calcium, serum or plasma 2020 [employer] [facility], [address], [address], 08:04:14 phosphorus, serum or plasma 2020 [employer] [facility], [address] [address] [address], [place], [address], 08:04:14 vitamin D, 25-hydroxy, total, serum 2020 021 [facility], [address] [address], [place], [address], 08:04:14 lipid panel, serum 2020 021 [facility], [address] [address], [place], [address], 08:04:13 CMP, serum or plasma 2020 021 [facility], [address] [address], [place], [address], 08:04:13 CK (creatine kinase), total, serum 2020 [facility], [address] [address], [place], [address], 08:04:13 lipid panel, serum 2020 021 [facility], [address], [address], 08:44:18 CMP, serum or plasma 2020 021 [facility], [address] [address], [place], [address], 08:44:18 CK (creatine kinase), total, serum 2020 021 [facility], [address] [address], [place], [address], 08:44:19 microalbumi n/creatinin e, mass ratio, urine 2020 [employer] [facility], [address] [address], [place], [address], 1 08:44:18 Referral neurologist referral 2022 023 guillaume Whiting MD, [address] [facility], [facility] [address], [place], [address], 4 09:31:50 hematologis t referral 2021 022 guillaume Stewart MD [facility], [address] [place] [address], [address], 2 11:52:21 hematologis t referral 2021 022 guilluame Stewart MD [facility], [address] [place] [address], [address], 2 08:11:09 Procedures None recorded. Surgeries None recorded. Imaging MRI, brain + brain stem, w/wo contrast 2022 023 guillaume [facility], [address] [place], [address], 3 09:27:55 bone density 2021 022 guillaume [facility], 20[address] Casey Juarez, [facility] [address], [place], [address], 2 08:40:06 Medication Orders amlodipine 5 mg tablet 2022 023 [facility]2510, [address] [place], [address], 3 12:04:22 sertraline 50 mg tablet 2022 023 [facility]armacy #2510, [address] [place], [address], 3 12:04:22 metoprolol succinate ER 50 mg tablet,exte nded release 24 hr 2021 022 [facility] [address] [place], [address], 2 12:29:12 lisinopril 40 mg tablet 2021 022 [facility] [address] [place], [address], 2 12:29:11 indapamide 1.25 mg tablet 2021 [address]22 [address] [place], [address], 2 12:19:10 indapamide 1.25 mg tablet 2020 021 [address], [address] [place] [address], [address], 2 12:19:10 Reclast 5 mg/100 mL intravenous piggyback 2020 021 [facility] -[id number] [facility], [facility], [place], [address], 1 12:38:48 atorvastati n 20 mg tablet 2020 021 [facility] [address] [place], [address], 1 16:12:18 metoprolol succinate ER 25 mg tablet,exte nded release 24 hr 2020 021 [address] [place], [address], 3 11:40:50 lisinopril 40 mg tablet 2020 021 [facility], [address] [place], [address], 16:12:17 indapamide 1.25 mg tablet [address]/Pharmacy #2510, [address] [place], [address], 12:19:10 sertraline 25 mg tablet [address]/Pharmacy #2510, [address] [place], [address], 13:21:28 Patient TargetsNo targets recorded. Patient Instructions Encounter Date Encounter Id Patient Instructions Last Modified By Organization Details Last Modified Time 11/24/2020 [id number] advance directiv e education [facility] Not available 11/24/2020 16:12:12 spirometry testing* [facility]IK Not available 11/24/2020 16:21:30 advised to lose weight [facility] Not available 11/24/2020 16:12:12 04/04/2022 [id number] medicare preventive services guide [facility] Not available 04/04/2022 12:29:08 advance care planning: care instructions [facility] Not available 04/04/2022 12:29:07 advised to lose weight [facility] Not available 04/04/2022 12:29:07 Discussed and explained advance directives such as standard forms to the {{patient caregiv er patient and caregiver}}. Face to face discussion lasted for a duration of ___ minutes. [email or web address] Not available 04/04/2022 12:04:50 Reason for Referral Referring Physician: Alexy Wright, Internal Medicine, Encounter Date: 10/05/2021 Referring Physician: Alexy Wright, Internal Medicine, Encounter Date: 04/04/2022 Neurologist Referral for Mem ory lapses Referring Physician: Alexy Wright, Internal Medicine, Encounter Date: 10/06/2022 Results Created Date Observation Date Name Description Value Unit Range Abnormal Flag Note LastModifiedBy Organization Detail LastModifiedTime 11/25/1911/24/2020 carmel metry testi ng* Spirometry Not Available [facility] [employer], [facility] [address], [place], [address], 11/24/2020 15:53:28 12/29/19 21 12/29/2020 lipid panel , serum cholesterol, total 150 mg/dL <200 normal Not Available [address], [address], 12/29/2020 12:38:49 12/29/19 21 12/29/2020 lipid panel , serum HDL cholesterol 52 mg/dL > or = 50 normal Not Available [employer] [address] [address] [place], [address], 12/29/2020 12:38:49 12/29/19 21 12/29/2020 lipid panel , serum triglyceride s 238 mg/dL <150 high If a non-f astin g speci men was colle cted, consi elisabeth repea t trigl yceri de testi ng on a fasti ng speci men if clini brook indic ated. Tesfaye krishnamurthy et al. J. of Clin. Lipid ol. 2015; 9:129 -169. Not Available [address] [place], [address], 12/29/2020 12:38:49 12/29/19 21 12/29/2020 lipid panel , serum LDL-choleste rol 68 mg/dL _(marcie c) normal Refer ence range : <100 Urvashi able range <100 mg/dL for prima ry preve ntion ; <70 mg/dL for patie nts with CHD or diabe tic patie nts with > or = 2 CHD risk facto rs. LDL-C is now calcu lated using the Adriana n-Hop kins calcu latio n, which is a valid ated novel metho d provi ding shereen r accur acy than the Fried marcos equat ion in the estim ation of LDL-C . Adriana shah SS et al. GENEVA. 2013; 310(1 9): 2061- 206 (http ://ed ucati on.Xochitl peck IN[employer] IMAGING SYSTEMSs. com/f aq/FA Q164) Not Available [address], [address], 12/29/2020 12:38:49 12/29/19 21 12/29/2020 lipid panel , serum chol/HDLC ratio 2.9 (calc ) <5.0 normal Not Available [address] [address] [facility] [place], [address], 12/29/2020 12:38:49 12/29/1912/29/2020 lipid panel , serum non HDL cholesterol 98 mg/dL _(marcie c) <130 normal For patie nts with diabe yessica plus 1 major ASCVD risk facto r, treat ing to a non-H DL-C goal of <100 mg/dL (LDL- C of <70 mg/dL ) is consi tavo a lo alejandro c optio n. Not Available [address] [address] [facility] [place], [address], 12/29/2020 12:38:49 12/29/19 21 12/29/2020 micro album in/cr eatin ine, mass ratio , urine creatinine, random urine 63 mg/dL 20-275 normal Not Available [address] [address] [place], [address], 12/29/2020 12:38:49 12/29/19 21 12/29/2020 micro album in/cr eatin ine, mass ratio , urine albumin, urine 0.7 mg/dL see note: normal Refer ence Range : Refer ence Range Not estab lishe d Not Available [address], [address], 12/29/2020 12:38:49 12/29/19 21 12/29/2020 micro album in/cr eatin ine, mass ratio , urine albumin/crea tinine ratio, random urine 11 mcg/m g_cre at <30 normal The ADA defin es abnor malit ies in album in excre tion as follo ws: Categ ory Resul t (mcg/ mg creat inine ) Naty l <30 Micro album inuri a 30-29 9 Clini marcie album inuri a > OR = 300 The ADA recom mends that at least two of three speci mens colle cted withi n a 3-6 month perio d be abnor mal befor e consi nel g a patie nt to be withi n a diagn ostic categ ory. Not Available [address] [place], [address], 12/29/2020 12:38:49 12/29/19 21 12/29/2020 CMP, serum or plasm a glucose 96 mg/dL 65-99 normal Fasti ng refer ence inter frances Not Available [address], [address], 12/29/2020 12:38:49 12/29/1912/29/2020 CMP, serum or plasm a urea nitrogen (BUN) 11 mg/dL 7-25 normal Not Available [facility] [address], [address], 12/29/2020 12:38:49 12/29/19 21 12/29/2020 CMP, serum or plasm a creatinine 0.93 mg/dL 0.60-0 .93 normal For patie nts >49 years of age, the refer ence limit for Creat inine is appro ximat uziel 13% highe r for peopl e ident ified as Afric an-Am maria g n. Not Available [facility] [address], [address], 12/29/2020 12:38:49 12/29/19 21 12/29/2020 CMP, serum or plasm a eGFR non-afr. stateless 60 mL/mi n/1.7 3m2 > or = 60 normal Not Available [facility] [address], [address], 12/29/2020 12:38:49 12/29/1912/29/2020 CMP, serum or plasm a eGFR 70 mL/mi n/1.7 3m2 > or = 60 normal Not Available [address], [address], 12/29/2020 12:38:49 12/29/1912/29/2020 CMP, serum or plasm a BUN/creatini ne ratio NOT APPLIC ABLE (calc ) 6-22 Not Available [address], [address], 12/29/2020 12:38:49 12/29/19 21 12/29/2020 CMP, serum or plasm a sodium 144 mmol/ L 135-14 6 normal Not Available [address], [address], 12/29/2020 12:38:49 12/29/19 21 12/29/2020 CMP, serum or plasm a potassium 3.2 mmol/ L 3.5-5. 3 low Not Available [address], [address], 12/29/2020 12:38:49 12/29/1912/29/2020 CMP, serum or plasm a chloride 103 mmol/ L 98-110 normal Not Available [address], [address], 12/29/2020 12:38:49 12/29/1912/29/2020 CMP, serum or plasm a carbon dioxide 28 mmol/ L 20-32 normal Not Available [address], [address], 12/29/2020 12:38:49 12/29/19 21 12/29/2020 CMP, serum or plasm a calcium 9.5 mg/dL 8.6-10 .4 normal Not Available [address], [address], 12/29/2020 12:38:49 12/29/1912/29/2020 CMP, serum or plasm a protein, total 6.5 g/dL 6.1-8. 1 normal Not Available [address], [address], 12/29/2020 12:38:49 12/29/1912/29/2020 CMP, serum or plasm a albumin 4.1 g/dL 3.6-5. 1 normal Not Available [address], [address], 12/29/2020 12:38:49 12/29/1912/29/2020 CMP, serum or plasm a globulin 2.4 g/dL_ (calc ) 1.9-3. 7 normal Not Available [address], [address], 12/29/2020 12:38:49 12/29/1912/29/2020 CMP, serum or plasm a albumin/glob ulin ratio 1.7 (calc ) 1.0-2. 5 normal Not Available [address], [address], 12/29/2020 12:38:49 12/29/1912/29/2020 CMP, serum or plasm a bilirubin, total 1.0 mg/dL 0.2-1. 2 normal Not Available [address], [address], 12/29/2020 12:38:49 12/29/1912/29/2020 CMP, serum or plasm a alkaline phosphatase 51 U/L 37-153 normal Not Available [facility] [employer] [address], [address], 12/29/2020 12:38:49 12/29/1929 1212/29/2020 CMP, serum or plasm a AST 25 U/L 10-35 normal Not Available [address], [address], 12/29/2020 12:38:49 12/29/19 21 12/29/2020 CMP, serum or plasm a ALT 29 U/L 6-29 normal Not Available [address], [address], 12/29/2020 12:38:49 12/29/19 21 12/29/2020 CK (crea valentín kinas e), total , serum creatine kinase, total 63 U/L 29-143 normal Not Available [address], [address], 12/29/2020 12:38:50 06/21/2006/22/2021 LIPID PANEL , STAND CICI cholesterol, total 174 mg/dL <200 normal Not Available [address], [address], 06/22/2021 15:55:09 06/21/2006/22/2021 LIPID PANEL , STAND CICI HDL cholesterol 50 mg/dL > or = 50 normal Not Available [address], [address], 06/22/2021 15:55:09 06/21/2006/22/2021 LIPID PANEL , STAND CICI triglyceride s 221 mg/dL <150 high If a non-f astin g speci men was colle cted, consi elisabeth repea t trigl yceri de testi ng on a fasti ng speci men if clini brook indic ated. Tesfaye krishnamurthy et al. J. of Clin. Lipid ol. 2015; 9:129 -169. Not Available [address], [address], 06/22/2021 15:55:09 06/21/2006/22/2021 LIPID PANEL , STAND CICI LDL-choleste rol 93 mg/dL _(marcie c) normal Refer ence range : <100 Urvashi able range <100 mg/dL for prima ry preve ntion ; <70 mg/dL for patie nts with CHD or diabe tic patie nts with > or = 2 CHD risk facto rs. LDL-C is now calcu lated using the Adriana n-Hop kins calcu roxana n, which is a valid ated novel metho d provi ding shereen r accur acy than the Fried marcos equat ion in the estim ation of LDL-C . Adriana shah SS et al. GENEVA. 2013; 310(1 5): 2061- 2068 (http ://ed ucati on.[employer]und[employer]. com/f aq/FA Q164) Not Available [address] [address] [place], [address], 06/22/2021 15:55:09 06/21/2006/22/2021 LIPID PANEL , STAND CICI chol/HDLC ratio 3.5 (calc ) <5.0 normal Not Available [address], [address], 06/22/2021 15:55:09 06/21/2006/22/2021 LIPID PANEL , STAND CICI non HDL cholesterol 124 mg/dL _(marcie c) <130 normal For patie nts with diabe yessica plus 1 major ASCVD risk facto r, treat ing to a non-H DL-C goal of <100 mg/dL (LDL- C of <70 mg/dL ) is consi dered a thera peuti c optio n. Not Available [address] [address] [place], [address], 06/22/2021 15:55:09 06/21/2006/22/2021 ALBUM IN, RANDO M URINE W/CRE ATINI NE creatinine, random urine 149 mg/dL 20-275 normal Not Available [facility] [employer] [facility] [address] [place], [address], 06/22/2021 15:55:09 06/21/2006/22/2021 ALBUM IN, RANDO M URINE W/CRE ATINI NE albumin, urine 1.5 mg/dL see note: normal Refer ence Range : Refer ence Range Not estab lishe d Not Available [address] [address] [place], [address], 06/22/2021 15:55:09 06/21/20 21 06/22/2021 ALBUM IN, RANDO M URINE W/CRE ATINI NE albumin/crea tinine ratio, random urine 10 mcg/m g_cre at <30 normal The ADA defin es abnor malit ies in album in excre tion as follo ws: Album inuri a Categ ory Resul t (mcg/ mg creat inine ) Naty l to Mildl y incre ased <30 Moder ately incre ased 30-29 9 Sever uziel incre ased > OR = 300 The ADA recom mends that at least two of three speci mens colle cted withi n a 3-6 month perio d be abnor mal befor e consi nel g a patie nt to be withi n a diagn ostic categ ory. Not Available [facility] [address] [address] [facility] [place], [address], 06/22/2021 15:55:09 06/21/2006/22/2021 PTH, INTAC T AND CALCI UM parathyroid hormone, intact 33 pg/mL 14-64 normal Inter preti ve Guide Intac t PTH Calci um ----- ----- ----- --- ----- ----- ----- -- Naty l Parat hyroi d Naty l Naty l Hypop arcadio yroid ism Low or Low Naty l Low Hyper parat hyroi dism Prima ry Naty l or High High Secon daniel High Naty l or Low Terti marium High High Non-P arcadio yroid Hyper calce soumya Low or Low Naty l High Not Available [address], [address], 06/22/2021 15:55:10 06/21/2006/22/2021 PTH, INTAC T AND CALCI UM calcium 9.4 mg/dL 8.6-10 .4 normal Not Available [address], [address], 06/22/2021 15:55:10 06/21/2006/22/2021 PHOSP HATE ( PHOSP HORUS ) phosphate ( phosphorus) 3.7 mg/dL 2.1-4. 3 normal Not Available [address], [address], 06/22/2021 15:55:10 06/21/20 21 06/22/2021 COMPR EHENS RYAN METAB OLIC PANEL glucose 96 mg/dL 65-99 normal Fasti ng refer ence inter frances Not Available [address], [address], 06/22/2021 15:55:11 06/21/2006/22/2021 COMPR EHENS RYAN METAB OLIC PANEL urea nitrogen (BUN) 12 mg/dL 7-25 normal Not Available [address], [address], 06/22/2021 15:55:11 06/21/2006/22/2021 COMPR EHENS RYAN METAB OLIC PANEL creatinine 1.01 mg/dL 0.60-0 .93 high For patie nts >49 years of age, the refer ence limit for Creat inine is appro ximat uziel 13% highe r for peopl e ident ified as Afric an-Am maria g n. Not Available [address], [address], 06/22/2021 15:55:11 06/21/20 21 06/22/2021 COMPR EHENS RYAN METAB OLIC PANEL eGFR non-afr. stateless 54 mL/mi n/1.7 3m2 > or = 60 low Not Available [address], [address], 06/22/2021 15:55:11 06/21/20 21 06/22/2021 COMPR EHENS RYAN METAB OLIC PANEL eGFR 63 mL/mi n/1.7 3m2 > or = 60 normal Not Available [address], [address], 06/22/2021 15:55:11 06/21/20 21 06/22/2021 COMPR EHENS RYAN METAB OLIC PANEL BUN/creatini ne ratio 12 (calc ) 6-22 normal Not Available [address], [address], 06/22/2021 15:55:11 06/21/20 21 06/22/2021 COMPR EHENS RYAN METAB OLIC PANEL sodium 142 mmol/ L 135-14 6 normal Not Available [address], [address], 06/22/2021 15:55:11 06/21/20 21 06/22/2021 COMPR EHENS RYAN METAB OLIC PANEL potassium 3.5 mmol/ L 3.5-5. 3 normal Not Available [address], [address], 06/22/2021 15:55:11 06/21/20 21 06/22/2021 COMPR EHENS RYAN METAB OLIC PANEL chloride 103 mmol/ L 98-110 normal Not Available [address], [address], 06/22/2021 15:55:11 06/21/20 21 06/22/2021 COMPR EHENS RYAN METAB OLIC PANEL carbon dioxide 31 mmol/ L 20-32 normal Not Available [address], [address], 06/22/2021 15:55:11 06/21/2006/22/2021 COMPR EHENS RYAN METAB OLIC PANEL calcium 9.4 mg/dL 8.6-10 .4 normal Not Available [address], [address], 06/22/2021 15:55:11 06/21/2006/22/2021 COMPR EHENS RYAN METAB OLIC PANEL protein, total 6.7 g/dL 6.1-8. 1 normal Not Available [address], [address], 06/22/2021 15:55:11 06/21/2006/22/2021 COMPR EHENS RYAN METAB OLIC PANEL albumin 4.2 g/dL 3.6-5. 1 normal Not Available [address], [address], 06/22/2021 15:55:11 06/21/20 21 06/22/2021 COMPR EHENS YRAN METAB OLIC PANEL globulin 2.5 g/dL_ (calc ) 1.9-3. 7 normal Not Available [address], [address], 06/22/2021 15:55:11 06/21/2006/22/2021 COMPR EHENS RYAN METAB OLIC PANEL albumin/glob ulin ratio 1.7 (calc ) 1.0-2. 5 normal Not Available [address], [address], 06/22/2021 15:55:11 06/21/20 21 06/22/2021 COMPR EHENS RYAN METAB OLIC PANEL bilirubin, total 1.0 mg/dL 0.2-1. 2 normal Not Available [address], [address], 06/22/2021 15:55:11 06/21/2006/22/2021 COMPR EHENS RYAN METAB OLIC PANEL alkaline phosphatase 56 U/L 37-153 normal Not Available [facility] [employer] [address], [address], 06/22/2021 15:55:11 06/21/20 21 06/22/2021 COMPR EHENS RYAN METAB OLIC PANEL AST 31 U/L 10-35 normal Not Available [address], [address], 06/22/2021 15:55:11 06/21/2006/22/2021 COMPR EHENS RYAN METAB OLIC PANEL ALT 36 U/L 6-29 high Not Available [address], [address], 06/22/2021 15:55:11 06/21/2006/22/2021 CREAT INE KINAS E, TOTAL creatine kinase, total 72 U/L 29-143 normal Not Available [address], [address], 06/22/2021 15:55:12 06/21/20 21 06/22/2021 CBC (INCL UDES DIFF/ PLT) white blood cell count 12.9 thous and/u L 3.8-10 .8 high Not Available [address], [address], 06/22/2021 15:55:12 06/21/2006/22/2021 CBC (INCL UDES DIFF/ PLT) red blood cell count 4.80 pepe on/uL 3.80-5 .10 normal Not Available [address], [address], 06/22/2021 15:55:12 06/21/20 21 06/22/2021 CBC (INCL UDES DIFF/ PLT) hemoglobin 15.1 g/dL 11.7-1 5.5 normal Not Available [address], [address], 06/22/2021 15:55:12 06/21/2006/22/2021 CBC (INCL UDES DIFF/ PLT) hematocrit 45.3 % 35.0-4 5.0 high Not Available [address], [address], 06/22/2021 15:55:12 06/21/2006/22/2021 CBC (INCL UDES DIFF/ PLT) MCV 94.4 fL 80.0-1 00.0 normal Not Available [address], [address], 06/22/2021 15:55:12 06/21/2006/22/2021 CBC (INCL UDES DIFF/ PLT) MCH 31.5 pg 27.0-3 3.0 normal Not Available [address], [address], 06/22/2021 15:55:12 06/21/2006/22/2021 CBC (INCL UDES DIFF/ PLT) MCHC 33.3 g/dL 32.0-3 6.0 normal Not Available [address], [address], 06/22/2021 15:55:12 06/21/2006/22/2021 CBC (INCL UDES DIFF/ PLT) RDW 13.0 % 11.0-1 5.0 normal Not Available [address], [address], 06/22/2021 15:55:12 06/21/2006/22/2021 CBC (INCL UDES DIFF/ PLT) platelet count 202 thous and/u L 140-40 0 normal Not Available [address], [address], 06/22/2021 15:55:12 06/21/2006/22/2021 CBC (INCL UDES DIFF/ PLT) MPV 10.8 fL 7.5-12 .5 normal Not Available [address], [address], 06/22/2021 15:55:12 06/21/2006/22/2021 CBC (INCL UDES DIFF/ PLT) absolute neutrophils 3006 cells /uL 1500-7 800 normal Not Available [address], [address], 06/22/2021 15:55:12 06/21/2006/22/2021 CBC (INCL UDES DIFF/ PLT) absolute lymphocytes 8708 cells /uL 850-39 00 high Not Available [address], [address], 06/22/2021 15:55:12 06/21/2006/22/2021 CBC (INCL UDES DIFF/ PLT) absolute monocytes 568 cells /uL 200-95 0 normal Not Available [address], [address], 06/22/2021 15:55:12 06/21/2006/22/2021 CBC (INCL UDES DIFF/ PLT) absolute eosinophils 555 cells /uL 15-500 high Not Available [address], [address], 06/22/2021 15:55:12 06/21/2006/22/2021 CBC (INCL UDES DIFF/ PLT) absolute basophils 65 cells /uL 0-200 normal Not Available [address], [address], 06/22/2021 15:55:12 06/21/20 21 06/22/2021 CBC (INCL UDES DIFF/ PLT) neutrophils 23.3 % normal Not Available [address], [address], 06/22/2021 15:55:12 06/21/2006/22/2021 CBC (INCL UDES DIFF/ PLT) lymphocytes 67.5 % normal Not Available [address], [address], 06/22/2021 15:55:12 06/21/2006/22/2021 CBC (INCL UDES DIFF/ PLT) monocytes 4.4 % normal Not Available [facility] [address], [address], 06/22/2021 15:55:12 06/21/2006/22/2021 CBC (INCL UDES DIFF/ PLT) eosinophils 4.3 % normal Not Available [facility] [address], [address], 06/22/2021 15:55:12 06/21/2006/22/2021 CBC (INCL UDES DIFF/ PLT) basophils 0.5 % normal Not Available [address], [address], 06/22/2021 15:55:12 06/21/2006/22/2021 CBC (INCL UDES DIFF/ PLT) comment(s) Revie w of perip heral smear confi jason autom ated resul ts. Few atypi marcie lymph ocyte s noted Not Available [address], [address], 06/22/2021 15:55:12 06/21/2006/22/2021 VITAM IN D,25- OH,TO TITA,I A vitamin D,25-oh,tota l,ia 94 NG/mL 30-100 normal Vitam in D Statu s 25-OH Vitam in D: Defic iency : <20 ng/mL Insuf ficie ncy: 20 - 29 ng/mL Optim al: > or = 30 ng/mL For 25-OH Vitam in D testi ng on patie nts on D2-gee pplem entat ion and patie nts for whom quant itati on of D2 and D3 fract ions is requi red, the [facility](TM ) 25-OH VIT D, (D2,D 3), LC/MS /MS is recom alisha d: order code [id number] (lukasz ents >2yrs ). See Note 1 Note 1 For addit ional infor imlton rodriguez refer to http: //[facility] juan josé [employer] gnost ics.c om/fa q/FAQ 199 (This link is being provi ded for infor eli you/ educa william barrett purpo ses only. ) Not Available [facility] [address], [address], 06/22/2021 15:55:13 07/18/20 21 07/19/2021 CBC (INCL UDES DIFF/ PLT) white blood cell count 15.7 thous and/u L 3.8-10 .8 high Not Available [facility] [address], [address], 07/19/2021 02:24:19 07/18/20 21 07/19/2021 CBC (INCL UDES DIFF/ PLT) red blood cell count 5.01 pepe on/uL 3.80-5 .10 normal Not Available [facility] [address], [address], 07/19/2021 02:24:19 07/18/20 21 07/19/2021 CBC (INCL UDES DIFF/ PLT) hemoglobin 15.8 g/dL 11.7-1 5.5 high Not Available [facility] [address], [address], 07/19/2021 02:24:19 07/18/20 21 07/19/2021 CBC (INCL UDES DIFF/ PLT) hematocrit 48.1 % 35.0-4 5.0 high Not Available [facility] [address], [address], 07/19/2021 02:24:19 07/18/20 21 07/19/2021 CBC (INCL UDES DIFF/ PLT) MCV 96.0 fL 80.0-1 00.0 normal Not Available [address], [address], 07/19/2021 02:24:19 07/18/20 21 07/19/2021 CBC (INCL UDES DIFF/ PLT) MCH 31.5 pg 27.0-3 3.0 normal Not Available [address], [address], 07/19/2021 02:24:19 07/18/2007/19/2021 CBC (INCL UDES DIFF/ PLT) MCHC 32.8 g/dL 32.0-3 6.0 normal Not Available [address], [address], 07/19/2021 02:24:19 07/18/2007/19/2021 CBC (INCL UDES DIFF/ PLT) RDW 13.0 % 11.0-1 5.0 normal Not Available [address], [address], 07/19/2021 02:24:19 07/18/2007/19/2021 CBC (INCL UDES DIFF/ PLT) platelet count 231 thous and/u L 140-40 0 normal Not Available [address], [address], 07/19/2021 02:24:19 07/18/2007/19/2021 CBC (INCL UDES DIFF/ PLT) MPV 10.7 fL 7.5-12 .5 normal Not Available [address], [address], 07/19/2021 02:24:19 07/18/20 21 07/19/2021 CBC (INCL UDES DIFF/ PLT) absolute neutrophils 4726 cells /uL 1500-7 800 normal Not Available [address], [address], 07/19/2021 02:24:19 07/18/20 21 07/19/2021 CBC (INCL UDES DIFF/ PLT) absolute lymphocytes 9687 cells /uL 850-39 00 high Not Available [address], [address], 07/19/2021 02:24:19 07/18/20 21 07/19/2021 CBC (INCL UDES DIFF/ PLT) absolute monocytes 675 cells /uL 200-95 0 normal Not Available [address], [address], 07/19/2021 02:24:19 07/18/20 21 07/19/2021 CBC (INCL UDES DIFF/ PLT) absolute eosinophils 518 cells /uL 15-500 high Not Available [address], [address], 07/19/2021 02:24:19 07/18/20 21 07/19/2021 CBC (INCL UDES DIFF/ PLT) absolute basophils 94 cells /uL 0-200 normal Not Available [address], [address], 07/19/2021 02:24:19 07/18/20 21 07/19/2021 CBC (INCL UDES DIFF/ PLT) neutrophils 30.1 % normal Not Available [address], [address], 07/19/2021 02:24:19 07/18/20 21 07/19/2021 CBC (INCL UDES DIFF/ PLT) lymphocytes 61.7 % normal Not Available [address], [address], 07/19/2021 02:24:19 07/18/20 21 07/19/2021 CBC (INCL UDES DIFF/ PLT) monocytes 4.3 % normal Not Available [address], [address], 07/19/2021 02:24:19 07/18/20 21 07/19/2021 CBC (INCL UDES DIFF/ PLT) eosinophils 3.3 % normal Not Available [address], [address], 07/19/2021 02:24:19 07/18/2007/19/2021 CBC (INCL UDES DIFF/ PLT) basophils 0.6 % normal Not Available [address], [address], 07/19/2021 02:24:19 08/01/2008/02/2021 URINA LYSIS , COMPL ETE W/REF FARA TO CULTU RE color YELLOW yellow normal Not Available [address], [address], 08/02/2021 04:17:43 08/01/2008/02/2021 URINA LYSIS , COMPL ETE W/REF FARA TO CULTU RE appearance CLEAR clear normal Not Available [address], [address], 08/02/2021 04:17:43 08/01/2008/02/2021 URINA LYSIS , COMPL ETE W/REF FARA TO CULTU RE specific gravity 1.013 1.001- 1.035 normal Not Available [address], [address], 08/02/2021 04:17:43 08/01/2008/02/2021 URINA LYSIS , COMPL ETE W/REF FARA TO CULTU RE pH 7.0 5.0-8. 0 normal Not Available [address], [address], 08/02/2021 04:17:43 08/01/20 21 08/02/2021 URINA LYSIS , COMPL ETE W/REF FARA TO CULTU RE glucose NEGATI VE negati ve normal Not Available [address], [address], 08/02/2021 04:17:43 08/01/20 21 08/02/2021 URINA LYSIS , COMPL ETE W/REF FARA TO CULTU RE bilirubin NEGATI VE negati ve normal Not Available [address], [address], 08/02/2021 04:17:43 08/01/20 21 08/02/2021 URINA LYSIS , COMPL ETE W/REF FARA TO CULTU RE ketones NEGATI VE negati ve normal Not Available [address], [address], 08/02/2021 04:17:43 08/01/20 21 08/02/2021 URINA LYSIS , COMPL ETE W/REF FARA TO CULTU RE occult blood NEGATI VE negati ve normal Not Available [address], [address], 08/02/2021 04:17:43 08/01/20 21 08/02/2021 URINA LYSIS , COMPL ETE W/REF FARA TO CULTU RE protein NEGATI VE negati ve normal Not Available [address], [address], 08/02/2021 04:17:43 08/01/20 21 08/02/2021 URINA LYSIS , COMPL ETE W/REF FARA TO CULTU RE nitrite NEGATI VE negati ve normal Not Available [address], [address], 08/02/2021 04:17:43 08/01/20 21 08/02/2021 URINA LYSIS , COMPL ETE W/REF FARA TO CULTU RE leukocyte esterase NEGATI VE negati ve normal Not Available [address] [address] [place], [address], 08/02/2021 04:17:43 08/01/20 21 08/02/2021 URINA LYSIS , COMPL ETE W/REF FARA TO CULTU RE WBC NONE SEEN /hpf < or = 5 normal Not Available [address] [address] [place], [address], 08/02/2021 04:17:43 08/01/20 21 08/02/2021 URINA LYSIS , COMPL ETE W/REF FARA TO CULTU RE RBC NONE SEEN /hpf < or = 2 normal Not Available [address], [address], 08/02/2021 04:17:43 08/01/20 21 08/02/2021 URINA LYSIS , COMPL ETE W/REF FARA TO CULTU RE squamous epithelial cells NONE SEEN /hpf < or = 5 normal Not Available [address] [address] [place], [address], 08/02/2021 04:17:43 08/01/20 21 08/02/2021 URINA LYSIS , COMPL ETE W/REF FARA TO CULTU RE bacteria NONE SEEN /hpf none seen normal Not Available [address], [address], 08/02/2021 04:17:43 08/01/20 21 08/02/2021 URINA LYSIS , COMPL ETE W/REF FARA TO CULTU RE hyaline cast NONE SEEN /lpf none seen normal Not Available [address], [address], 08/02/2021 04:17:43 08/01/20 21 08/02/2021 REFLE XIVE URINE CULTU RE reflexive urine culture NO CULTU RE INDIC ATED Not Available [address] [place], [address], 08/02/2021 04:17:45 09/16/19 22 09/17/2021 CBC (INCL UDES DIFF/ PLT) white blood cell count 14.7 thous and/u L 3.8-10 .8 high Not Available [address], [address], 09/17/2021 05:47:19 09/16/19 22 09/17/2021 CBC (INCL UDES DIFF/ PLT) red blood cell count 4.99 pepe on/uL 3.80-5 .10 normal Not Available [address], [address], 09/17/2021 05:47:19 09/16/19 22 09/17/2021 CBC (INCL UDES DIFF/ PLT) hemoglobin 15.3 g/dL 11.7-1 5.5 normal Not Available [address], [address], 09/17/2021 05:47:19 09/16/19 22 09/17/2021 CBC (INCL UDES DIFF/ PLT) hematocrit 46.4 % 35.0-4 5.0 high Not Available [address], [address], 09/17/2021 05:47:19 09/16/1909/17/2021 CBC (INCL UDES DIFF/ PLT) MCV 93.0 fL 80.0-1 00.0 normal Not Available [address], [address], 09/17/2021 05:47:19 09/16/1909/17/2021 CBC (INCL UDES DIFF/ PLT) MCH 30.7 pg 27.0-3 3.0 normal Not Available [address], [address], 09/17/2021 05:47:19 09/16/19 22 09/17/2021 CBC (INCL UDES DIFF/ PLT) MCHC 33.0 g/dL 32.0-3 6.0 normal Not Available [address], [address], 09/17/2021 05:47:19 09/16/19 22 09/17/2021 CBC (INCL UDES DIFF/ PLT) RDW 12.4 % 11.0-1 5.0 normal Not Available [address], [address], 09/17/2021 05:47:19 09/16/19 22 09/17/2021 CBC (INCL UDES DIFF/ PLT) platelet count 198 thous and/u L 140-40 0 normal Not Available [address], [address], 09/17/2021 05:47:19 09/16/19 22 09/17/2021 CBC (INCL UDES DIFF/ PLT) MPV 11.2 fL 7.5-12 .5 normal Not Available [address], [address], 09/17/2021 05:47:19 09/16/19 22 09/17/2021 CBC (INCL UDES DIFF/ PLT) absolute neutrophils 4013 cells /uL 1500-7 800 normal Not Available [address], [address], 09/17/2021 05:47:19 09/16/19 22 09/17/2021 CBC (INCL UDES DIFF/ PLT) absolute lymphocytes 9570 cells /uL 850-39 00 high Not Available [address], [address], 09/17/2021 05:47:19 09/16/19 22 09/17/2021 CBC (INCL UDES DIFF/ PLT) absolute monocytes 515 cells /uL 200-95 0 normal Not Available [facility] [address], [address], 09/17/2021 05:47:19 09/16/19 22 09/17/2021 CBC (INCL UDES DIFF/ PLT) absolute eosinophils 515 cells /uL 15-500 high Not Available [address], [address], 09/17/2021 05:47:19 09/16/19 22 09/17/2021 CBC (INCL UDES DIFF/ PLT) absolute basophils 88 cells /uL 0-200 normal Not Available [facility] [address], [address], 09/17/2021 05:47:19 09/16/19 22 09/17/2021 CBC (INCL UDES DIFF/ PLT) neutrophils 27.3 % normal Not Available [facility] [address], [address], 09/17/2021 05:47:19 09/16/19 22 09/17/2021 CBC (INCL UDES DIFF/ PLT) lymphocytes 65.1 % normal Not Available [facility] [address], [address], 09/17/2021 05:47:19 09/16/1909/17/2021 CBC (INCL UDES DIFF/ PLT) monocytes 3.5 % normal Not Available [facility] [address], [address], 09/17/2021 05:47:19 09/16/1909/17/2021 CBC (INCL UDES DIFF/ PLT) eosinophils 3.5 % normal Not Available [facility] [address], [address], 09/17/2021 05:47:19 09/16/1909/17/2021 CBC (INCL UDES DIFF/ PLT) basophils 0.6 % normal Not Available [facility] [address], [address], 09/17/2021 05:47:19 10/05/19 22 10/05/2021 COMPL ETE CBC W/AUT O DIFF WBC white blood cell count 14.2 thous and/u L 3.5-10 .0 high Not Available [place] [address] [place], [address], 10/06/2021 15:12:32 10/05/19 22 10/05/2021 COMPL ETE CBC W/AUT O DIFF WBC red blood cell count 5.0 pepe on/uL 3.5-5. 5 Not Available [address] [address] [place], [address], 10/06/2021 15:12:32 10/05/19 22 10/05/2021 COMPL ETE CBC W/AUT O DIFF WBC hemoglobin 15.6 g/dL 11.5-1 6.5 Not Available [address] [address] [place], [address], 10/06/2021 15:12:32 10/05/19 22 10/05/2021 COMPL ETE CBC W/AUT O DIFF WBC hematocrit 48 % 35-55 Not Available [address] [address] [place], [address], 10/06/2021 15:12:32 10/05/19 22 10/05/2021 COMPL ETE CBC W/AUT O DIFF WBC MCH 31 pg 25-35 Not Available [address] [address] [place], [address], 10/06/2021 15:12:32 10/05/19 22 10/05/2021 COMPL ETE CBC W/AUT O DIFF WBC MCHC 33 g/dL 31-38 Not Available [address] [place] [address] [place], [address], 10/06/2021 15:12:32 10/05/19 22 10/05/2021 COMPL ETE CBC W/AUT O DIFF WBC MCV 96 fL 75-100 Not Available [address] [address] [place], [address], 10/06/2021 15:12:32 10/05/19 22 10/05/2021 COMPL ETE CBC W/AUT O DIFF WBC RDW-CV 13 % 11-15 Not Available [address] [address] [place], [address], 10/06/2021 15:12:32 10/05/19 22 10/05/2021 COMPL ETE CBC W/AUT O DIFF WBC neutrophils% 31.5 % Not Available [address] [address] [place], [address], 10/06/2021 15:12:32 10/05/19 22 10/05/2021 COMPL ETE CBC W/AUT O DIFF WBC lymphocytes% 59.5 % Not Available [address] [place] [address] [place], [address], 10/06/2021 15:12:32 10/05/19 22 10/05/2021 COMPL ETE CBC W/AUT O DIFF WBC monocytes% 5.4 % Not Available [address] [place] [address] [place], [address], 10/06/2021 15:12:32 10/05/19 22 10/05/2021 COMPL ETE CBC W/AUT O DIFF WBC eosinophil % 2.6 % 0.0-7. 0 Not Available [place] [address] [place], [address], 10/06/2021 15:12:32 10/05/19 22 10/05/2021 COMPL ETE CBC W/AUT O DIFF WBC basophil % 0.7 % 0.0-3. 0 Not Available [place] [address] [address] [place] [address], 10/06/2021 15:12:32 10/05/19 22 10/05/2021 COMPL ETE CBC W/AUT O DIFF WBC absolute neutrophils 4.5 cells /uL 1.5-7. 8 Not Available [address] [place] [address] [place], [address], 10/06/2021 15:12:32 10/05/19 22 10/05/2021 COMPL ETE CBC W/AUT O DIFF WBC absolute lymphocytes 8.44 cells /uL 0.85-3 .90 high Not Available [address] [place] [address] [place], [address], 10/06/2021 15:12:32 10/05/19 22 10/05/2021 COMPL ETE CBC W/AUT O DIFF WBC absolute monocytes 0.8 cells /uL 0.2-1. 0 Not Available [address] [address] [place], [address], 10/06/2021 15:12:32 10/05/19 22 10/05/2021 COMPL ETE CBC W/AUT O DIFF WBC absolute eosinophils 0.4 cells /uL 0.0-0. 5 Not Available [address] [address] [place], [address], 10/06/2021 15:12:32 10/05/19 22 10/05/2021 COMPL ETE CBC W/AUT O DIFF WBC absolute basophils 0.1 cells /uL 0.0-0. 2 Not Available [address] [address] [place], [address], 10/06/2021 15:12:32 10/05/19 22 10/05/2021 COMPL ETE CBC W/AUT O DIFF WBC platelet count 220 thous and/u L 100-40 0 Testi barb Ponce rmed at: [facility], [address], [address] [place] [address] Phone : Fax: Not Available [address] [place] [address] [place], [address], 10/06/2021 15:12:32 10/05/19 22 10/05/2021 CMP (COMP REHEN SIVE METAB OLIC PANEL ) glucose 91 mg/dL 74-99 Not Available [facility] [place] [address] [place], [address], 10/06/2021 15:12:33 10/05/19 22 10/05/2021 CMP (COMP REHEN SIVE METAB OLIC PANEL ) urea nitrogen, blood (BUN) 10 mg/dL 8-23 Not Available [facility] [place] [address] [place], [address], 10/06/2021 15:12:33 10/05/19 22 10/05/2021 CMP (COMP REHEN SIVE METAB OLIC PANEL ) total bilirubin 0.8 mg/dL 0.0-1. 2 Not Available [facility] [place] [address] [place], [address], 10/06/2021 15:12:33 10/05/19 22 10/05/2021 CMP (COMP REHEN SIVE METAB OLIC PANEL ) total protein 7.3 g/dL 6.6-8. 7 Not Available [facility] [place] [address] [place], [address], 10/06/2021 15:12:33 10/05/19 22 10/05/2021 CMP (COMP REHEN SIVE METAB OLIC PANEL ) alanine aminotransfe rase (ALT) 43 U/L 0-33 high Not Available [facility] [place] [address] [address], [place], [address], 10/06/2021 15:12:33 10/05/19 22 10/05/2021 CMP (COMP REHEN SIVE METAB OLIC PANEL ) alkaline phosphatase 61 U/L 40-130 Not Available [facility] [place] [address] [place], [address], 10/06/2021 15:12:33 10/05/19 22 10/05/2021 CMP (COMP REHEN SIVE METAB OLIC PANEL ) aspartate aminotransfe rase (AST) 36 U/L 0-32 high Not Available [facility] [place] [address] [place], [address], 10/06/2021 15:12:33 10/05/19 22 10/05/2021 CMP (COMP REHEN SIVE METAB OLIC PANEL ) calcium 9.7 mg/dL 8.6-10 .2 Not Available [facility] [place] [address] [place], [address], 10/06/2021 15:12:33 10/05/19 22 10/05/2021 CMP (COMP REHEN SIVE METAB OLIC PANEL ) albumin 4.6 g/dL 3.5-5. 2 Not Available [facility] [place] [address] [place], [address], 10/06/2021 15:12:33 10/05/19 22 10/05/2021 CMP (COMP REHEN SIVE METAB OLIC PANEL ) CO2 29 mmol/ L 23-31 Not Available [facility] [place] [address] [place], [address], 10/06/2021 15:12:33 10/05/19 22 10/05/2021 CMP (COMP REHEN SIVE METAB OLIC PANEL ) creatinine, serum 0.9 mg/dL 0.5-0. 9 Not Available [facility] [place] [address] [place], [address], 10/06/2021 15:12:33 10/05/19 22 10/05/2021 CMP (COMP REHEN SIVE METAB OLIC PANEL ) sodium, serum 142 mmol/ L 136-14 5 Not Available [facility] [place] [address] [place], [address], 10/06/2021 15:12:33 10/05/19 22 10/05/2021 CMP (COMP REHEN SIVE METAB OLIC PANEL ) potassium, serum 3.5 mmol/ L 3.5-5. 1 Not Available [facility] [place] [address] [place], [address], 10/06/2021 15:12:33 10/05/19 22 10/05/2021 CMP (COMP REHEN SIVE METAB OLIC PANEL ) chloride, serum 102 mmol/ L 98-107 Not Available [facility] [place] [address] [place], [address], 10/06/2021 15:12:33 10/05/19 22 10/05/2021 CMP (COMP REHEN SIVE METAB OLIC PANEL ) eGFR 65 >59 Persi stent reduc tion for 3 month s or more in an eGFR <60 mL/mi n/1.7 3 m2 defin es CKD. Patie nts with eGFR value s>/=6 0 mL/mi n/1.7 3 m2 may also have CKD if evide nce of persi stent protu niuri a is prese nt. Addit ional infor eli shah may be found at www.k doqi. org. Not Available [facility] [place] [address] [place] [place], [address], 10/06/2021 15:12:33 10/05/19 22 10/05/2021 DLDL dldl 46 mg/dL 0-100 Not Available [facility] [place] [address] [place], [address], 10/06/2021 15:12:34 10/05/19 22 10/05/2021 LIPID PANEL trigylceride s 242 mg/dL 0-150 high Not Available [facility] [place] [address] [address] [place], [address], 10/06/2021 15:12:34 10/05/19 22 10/05/2021 LIPID PANEL cholesterol 145 mg/dL 0-200 Not Available [facility] [place] [address] [address] [place], [address], 10/06/2021 15:12:34 10/05/19 22 10/05/2021 LIPID PANEL uhdl 49 mg/dL 45-65 Not Available [facility] [place] [address] [place], [address], 10/06/2021 15:12:34 10/05/19 22 10/05/2021 LIPID PANEL LDL, calculated 48 mg/dL 0-100 Not Available [facility] [place] [address] [place], [address], 10/06/2021 15:12:34 10/05/19 22 10/05/2021 LIPID PANEL LDL, measured 46 mg/dL <99 Not Available [facility] [place] [address] [place], [address], 10/06/2021 15:12:34 10/05/19 22 10/05/2021 LIPID PANEL LDL/HDL ratio 1 mg/dL 0-5 Not Available [facility] [place] [address] [place], [address], 10/06/2021 15:12:34 10/05/19 22 10/05/2021 LIPID PANEL VLDL 48.4 mg/dL 5.0-40 .0 high Not Available [facility] [place] [address] [place], [address], 10/06/2021 15:12:34 10/05/19 22 10/05/2021 LIPID PANEL cholesterol/ HDL ratio 2.96 0.00-5 .00 Not Available [facility] [place] [address] [place], [address], 10/06/2021 15:12:34 10/05/19 22 10/05/2021 PARAT HYROI Laura VALERIOO NE (PTH) , INTAC T, SERUM PTH 19.2 pg/mL 15.0-6 5.0 Not Available [facility] [place] [address] [place], [address], 10/06/2021 15:12:35 10/05/19 22 10/05/2021 PHOSP HORUS phosphorus, serum 3.1 mg/dL 2.5-4. 5 Not Available [place] [address] [place], [address], 10/06/2021 15:12:35 10/05/19 22 10/05/2021 VITAM IN D 25-HY DROXY vitamin D 132.2 RESULT S VERIFI ED BY REPEAT ANALYS IS. NG/mL 30.0-9 6.0 high Defic ient: <=20 ng/mL Insuf ficie nt: 21-29 ng/mL Suffi cient : >=30 ng/mL Testi ng Perfo rmed at: [facility] [address], [address] [place] [address] Phone : [phone] Fax: Not Available [place] [address] [place], [address], 10/06/2021 15:12:36 10/05/19 22 10/05/2021 URINE MICRO ALBUM IN/CR EATIN INE RATIO urine microalbumin 8 mg/L 0-30 Not Available [place] [address] [place], [address], 10/06/2021 15:12:37 10/05/19 22 10/05/2021 URINE MICRO ALBUM IN/CR EATIN INE RATIO urine creatinine 97.56 mg/dL 28.00- 217.00 Not Available [place] [address] [place], [address], 10/06/2021 15:12:37 10/05/19 22 10/05/2021 URINE MICRO ALBUM IN/CR EATIN INE RATIO urine microalbumin /creatinine ratio 9 mg/g_ creat inine 0-30 Not Available [place] [address] Geoff EmanuelROSALIO, [address], 10/06/2021 15:12:37 04/18/20 22 04/19/2022 LIPID PANEL , STAND CICI cholesterol, total 143 mg/dL <200 normal Not Available [facility] [address] [address], [place], [address], 04/19/2022 12:55:00 04/18/20 22 04/19/2022 LIPID PANEL , STAND CICI HDL cholesterol 49 mg/dL > or = 50 low Not Available [facility] [address] [place], [address], 04/19/2022 12:55:00 04/18/20 22 04/19/2022 LIPID PANEL , STAND CICI triglyceride s 233 mg/dL <150 high If a non-f astin g speci men was colle cted, consi elisabeth repea t trigl yceri de testi ng on a fasti ng speci men if clini brook indic ated. Tesfaye krishnamurthy et al. J. of Clin. Lipid ol. 2015; 9:129 -169. Not Available [address] [place], [address], 04/19/2022 12:55:00 04/18/20 22 04/19/2022 LIPID PANEL , STAND CICI LDL-choleste rol 65 mg/dL _(marcie c) normal Refer ence range : <100 Urvashi able range <100 mg/dL for prima ry preve ntion ; <70 mg/dL for patie nts with CHD or diabe tic patie nts with > or = 2 CHD risk facto rs. LDL-C is now calcu lated using the Adriana n-Hop kins ignacia schmidt n, which is a valid ated novel adinao d faheem regan r accur acy than the Fried marcos equat ion in the estim ation of LDL-C . Adriana shah SS et al. GENEVA. 2013; 310(1 9): 2061- 2068 (http ://ed ucati on.Qu estDi cisco tics. com/f aq/FA Q164) Not Available [facility] [address] [address], [place], [address], 04/19/2022 12:55:00 04/18/20 22 04/19/2022 LIPID PANEL , STAND CICI chol/HDLC ratio 2.9 (calc ) <5.0 normal Not Available [place] [address] [place], [address], 04/19/2022 12:55:00 04/18/20 22 04/19/2022 LIPID PANEL , STAND CICI non HDL cholesterol 94 mg/dL _(marcie c) <130 normal For patie nts with diabe yessica plus 1 major ASCVD risk facto r, treat ing to a non-H DL-C goal of <100 mg/dL (LDL- C of <70 mg/dL ) is consi praveend a thera pebaltazar c optio n. Not Available [address], [address], 04/19/2022 12:55:00 04/18/20 22 04/19/2022 ALBUM IN, RANDO M URINE W/CRE ATINI NE creatinine, random urine 185 mg/dL 20-275 normal Not Available [place] [address] [place], [address], 04/19/2022 12:55:01 04/18/20 22 04/19/2022 ALBUM IN, RANDO M URINE W/CRE ATINI NE albumin, urine 2.3 mg/dL see note: normal Refer ence Range : Refer ence Range Not estab lishe d Not Available [place] [address] [place], [address], 04/19/2022 12:55:01 04/18/20 22 04/19/2022 ALBUM IN, RANDO M URINE W/CRE ATINI NE albumin/crea tinine ratio, random urine 12 mcg/m g_cre at <30 normal The ADA defin es abnor malit ies in album in excre tion as follo ws: Album inuri a Categ ory Resul t (mcg/ mg creat inine ) Ntay l to Mildl y incre ased <30 Moder ately incre ased 30-29 9 Sever uizel incre ased > OR = 300 The ADA recom mends that at least two of three speci mens colle cted withi n a 3-6 month perio d be abnor mal befor e consi nel g a patie nt to be withi n a diagn ostic categ ory. Not Available [address], [address], 04/19/2022 12:55:01 04/18/20 22 04/19/2022 PTH, INTAC T AND CALCI UM parathyroid hormone, intact 28 pg/mL 16-77 normal Inter preti ve Guide Intac t PTH Calci um ----- ----- ----- --- ----- ----- ----- -- Naty l Parat hyroi d Naty l Naty l Hypop arcadio yroid ism Low or Low Naty l Low Hyper parat hyroi dism Prima ry Naty l or High High Secon daniel High Naty l or Low Terti marium High High Non-P arcadio yroid Hyper calce soumya Low or Low Naty l High Not Available [address], [address], 04/19/2022 12:55:02 04/18/2004/19/2022 PTH, INTAC T AND CALCI UM calcium 9.4 mg/dL 8.6-10 .4 normal Not Available [address], [address], 04/19/2022 12:55:02 04/18/20 22 04/19/2022 PHOSP HATE ( PHOSP HORUS ) phosphate ( phosphorus) 3.5 mg/dL 2.1-4. 3 normal Not Available [address], [address], 04/19/2022 12:55:02 04/18/20 22 04/19/2022 COMPR EHENS RYAN METAB OLIC PANEL glucose 96 mg/dL 65-99 normal Fasti ng refer ence inter frances Not Available [address] [place], [address], 04/19/2022 12:55:03 04/18/20 22 04/19/2022 COMPR EHENS RYAN METAB OLIC PANEL urea nitrogen (BUN) 14 mg/dL 7-25 normal Not Available [address], [address], 04/19/2022 12:55:03 04/18/20 22 04/19/2022 COMPR EHENS RYAN METAB OLIC PANEL creatinine 1.01 mg/dL 0.60-1 .00 high Not Available [address], [address], 04/19/2022 12:55:03 04/18/20 22 04/19/2022 COMPR EHENS RYAN METAB OLIC PANEL eGFR 57 mL/mi n/1.7 3m2 > or = 60 low The eGFR is based on the CKD-E PI 2020 equat ion. To calcu late the new eGFR from a previ ous Creat inine or Cysta tin C resul t, go to https ://aaron luna.misti pack/leola kelly s/ kdoqi /gfr% 5Fcal culat or Not Available [address], [address], 04/19/2022 12:55:03 04/18/20 22 04/19/2022 COMPR EHENS RYAN METAB OLIC PANEL BUN/creatini ne ratio 14 (calc ) 6-22 normal Not Available [facility] [address], [address], 04/19/2022 12:55:03 04/18/20 22 04/19/2022 COMPR EHENS RYAN METAB OLIC PANEL sodium 142 mmol/ L 135-14 6 normal Not Available [address], [address], 04/19/2022 12:55:03 04/18/20 22 04/19/2022 COMPR EHENS RYAN METAB OLIC PANEL potassium 3.5 mmol/ L 3.5-5. 3 normal Not Available [address], [address], 04/19/2022 12:55:03 04/18/20 22 04/19/2022 COMPR EHENS RYAN METAB OLIC PANEL chloride 104 mmol/ L 98-110 normal Not Available [address], [address], 04/19/2022 12:55:03 04/18/20 22 04/19/2022 COMPR EHENS RYAN METAB OLIC PANEL carbon dioxide 29 mmol/ L 20-32 normal Not Available [address], [address], 04/19/2022 12:55:03 04/18/20 22 04/19/2022 COMPR EHENS RYAN METAB OLIC PANEL calcium 9.4 mg/dL 8.6-10 .4 normal Not Available [address], [address], 04/19/2022 12:55:03 04/18/20 22 04/19/2022 COMPR EHENS RYAN METAB OLIC PANEL protein, total 6.5 g/dL 6.1-8. 1 normal Not Available [address], [address], 04/19/2022 12:55:03 04/18/20 22 04/19/2022 COMPR EHENS RYAN METAB OLIC PANEL albumin 4.1 g/dL 3.6-5. 1 normal Not Available [address], [address], 04/19/2022 12:55:03 04/18/20 22 04/19/2022 COMPR EHENS RYAN METAB OLIC PANEL globulin 2.4 g/dL_ (calc ) 1.9-3. 7 normal Not Available [address] [place], [address], 04/19/2022 12:55:03 04/18/20 22 04/19/2022 COMPR EHENS RYAN METAB OLIC PANEL albumin/glob ulin ratio 1.7 (calc ) 1.0-2. 5 normal Not Available [address], [address], 04/19/2022 12:55:03 04/18/20 22 04/19/2022 COMPR EHENS RYAN METAB OLIC PANEL bilirubin, total 1.3 mg/dL 0.2-1. 2 high Not Available [address], [address], 04/19/2022 12:55:03 04/18/20 22 04/19/2022 COMPR EHENS RYAN METAB OLIC PANEL alkaline phosphatase 55 U/L 37-153 normal Not Available [address], [address], 04/19/2022 12:55:03 04/18/20 22 04/19/2022 COMPR EHENS RYAN METAB OLIC PANEL AST 31 U/L 10-35 normal Not Available [address], [address], 04/19/2022 12:55:03 04/18/20 22 04/19/2022 COMPR EHENS RYAN METAB OLIC PANEL ALT 40 U/L 6-29 high Not Available [address], [address], 04/19/2022 12:55:03 04/18/20 22 04/19/2022 CBC (INCL UDES DIFF/ PLT) white blood cell count 15.6 thous and/u L 3.8-10 .8 high Not Available [address], [address], 04/19/2022 12:55:04 04/18/20 22 04/19/2022 CBC (INCL UDES DIFF/ PLT) red blood cell count 4.80 pepe on/uL 3.80-5 .10 normal Not Available [address], [address], 04/19/2022 12:55:04 04/18/20 22 04/19/2022 CBC (INCL UDES DIFF/ PLT) hemoglobin 15.1 g/dL 11.7-1 5.5 normal Not Available [address], [address], 04/19/2022 12:55:04 04/18/20 22 04/19/2022 CBC (INCL UDES DIFF/ PLT) hematocrit 45.5 % 35.0-4 5.0 high Not Available [address], [address], 04/19/2022 12:55:04 04/18/20 22 04/19/2022 CBC (INCL UDES DIFF/ PLT) MCV 94.8 fL 80.0-1 00.0 normal Not Available [address], [address], 04/19/2022 12:55:04 04/18/20 22 04/19/2022 CBC (INCL UDES DIFF/ PLT) MCH 31.5 pg 27.0-3 3.0 normal Not Available [address], [address], 04/19/2022 12:55:04 04/18/20 22 04/19/2022 CBC (INCL UDES DIFF/ PLT) MCHC 33.2 g/dL 32.0-3 6.0 normal Not Available [address], [address], 04/19/2022 12:55:04 04/18/20 22 04/19/2022 CBC (INCL UDES DIFF/ PLT) RDW 12.9 % 11.0-1 5.0 normal Not Available [address], [address], 04/19/2022 12:55:04 04/18/20 22 04/19/2022 CBC (INCL UDES DIFF/ PLT) platelet count 201 thous and/u L 140-40 0 normal Not Available [address], [address], 04/19/2022 12:55:04 04/18/20 22 04/19/2022 CBC (INCL UDES DIFF/ PLT) MPV 10.4 fL 7.5-12 .5 normal Not Available [address], [address], 04/19/2022 12:55:04 04/18/20 22 04/19/2022 CBC (INCL UDES DIFF/ PLT) absolute neutrophils 3931 cells /uL 1500-7 800 normal Not Available [address], [address], 04/19/2022 12:55:04 04/18/20 22 04/19/2022 CBC (INCL UDES DIFF/ PLT) absolute lymphocytes 86735 cells /uL 850-39 00 high Not Available [address], [address], 04/19/2022 12:55:04 04/18/20 22 04/19/2022 CBC (INCL UDES DIFF/ PLT) absolute monocytes 671 cells /uL 200-95 0 normal Not Available [address], [address], 04/19/2022 12:55:04 04/18/20 22 04/19/2022 CBC (INCL UDES DIFF/ PLT) absolute eosinophils 484 cells /uL 15-500 normal Not Available [address], [address], 04/19/2022 12:55:04 04/18/20 22 04/19/2022 CBC (INCL UDES DIFF/ PLT) absolute basophils 94 cells /uL 0-200 normal Not Available [address], [address], 04/19/2022 12:55:04 04/18/20 22 04/19/2022 CBC (INCL UDES DIFF/ PLT) neutrophils 25.2 % normal Not Available [address], [address], 04/19/2022 12:55:04 04/18/20 22 04/19/2022 CBC (INCL UDES DIFF/ PLT) lymphocytes 66.8 % normal Not Available [address], [address], 04/19/2022 12:55:04 04/18/20 22 04/19/2022 CBC (INCL UDES DIFF/ PLT) monocytes 4.3 % normal Not Available [address], [address], 04/19/2022 12:55:04 04/18/20 22 04/19/2022 CBC (INCL UDES DIFF/ PLT) eosinophils 3.1 % normal Not Available [address], [address], 04/19/2022 12:55:04 04/18/20 22 04/19/2022 CBC (INCL UDES DIFF/ PLT) basophils 0.6 % normal Not Available [address], [address], 04/19/2022 12:55:04 04/18/20 22 04/19/2022 CBC (INCL UDES DIFF/ PLT) comment(s) Moder ate atypi marcie lymph s Smudg e cells prese nt Red cell morph ology appea rs unrem arkab le Not Available [address], [address], 04/19/2022 12:55:04 04/18/20 22 04/19/2022 VITAM IN D,25- OH,TO TITA,I A vitamin D,25-oh,tota nenaia 103 NG/mL 30-100 high Vitam in D Statu s 25-OH Vitam in D: Defic iency : <20 ng/mL Insuf ficie ncy: 20 - 29 ng/mL Optim al: > or = 30 ng/mL For 25-OH Vitam in D testi ng on patie nts on D2-gee pplem entat ion and patie nts for whom quant itati on of D2 and D3 fract ions is requi red, the [facility] eD(TM ) 25-OH VIT D, (D2,D 3), LC/MS /MS is recom alisha d: order code 38417 (lukasz ents >2yrs ). See Note 1 Note 1 For addit ional infor milton rodriguez e refer to http: //[facility] juan josé shah.Remberto stDia gnost ics.c om/fa q/FAQ 199 (This link is being provi ded for infor eli you/ educpavel barrett purpo ses only. ) Not Available [facility] [employer] [place] [address] [facility], [place], [address], 04/19/2022 12:55:05 02/01/20 21 01/31/2021 MAMMO , scree sirena, bilat eral No observ ation record ed. [email or web address] [place] [address] [address], [place], [address], 02/09/2021 16:05:16 03/23/20 21 03/22/2021 , brittani t No observ ation record ed. [address], [place], [address], 04/11/2021 08:10:13 07/29/20 21 07/29/2021 XR, chest , 2 view No observ ation record ed. [address], [place], [address], 08/22/2021 00:30:57 07/10/20 22 06/30/2022 bone densi ty No observ ation record ed. [facility] [address], [place], [address], 10/06/2022 12:06:49 Result Notes None recorded. Problems Name Problem SNOMED Code Status Onset Date Resolution Date Notes Provider Name and Address Organization Details Recorded Time Benign hypertensio n 59872992 Active 2018 Not Available [facility] 4 05:34:13 Hyperglycem ia 68710872 Active 2018 Not Available [facility] 4 05:34:14 Steatosis of liver 599659097 Active 2018 Not Available [facility] 4 05:34:13 Chronic lymphoid leukemia, disease 08280604 Active [address] Yusuf Stewart Not Available [facility] 4 05:34:14 Essential hypertensio n 56142848 Active 2022 Not Available [facility] 4 05:34:14 Memory lapses 897937786 Active 2022 Not Available [facility] 4 05:34:13 Mixed anxiety and depressive disorder 154643230 Active 2022 Not Available [facility] 4 05:34:14 Lymphocytos is 30780542 Active 2022 Not Available [facility] 4 05:34:14 Notes:dilated CBD -liver US 05/2018 - followed by Dr. Barber - no further investigation warrented per Dr. Barber Problem Notes None recorded. Procedures Surgical History Date Name Laterality Status Provider Name and Address Organization Details Recorded Time 02/01/20 21 Date of Last Mammogram completed Diane Galvez [facility] 05/27/2021 12:13:36 Tonsillectomy completed Alexy Wright MD [address] [place] [address] [address], [place], [address], [facility] 04/11/2018 11:23:07 Tubal Ligation completed Alexy Wright MD [address], [place], [address], [facility] 04/11/2018 11:23:23 Rhinoplasty completed Saskia Fair [address], [place], [address], [facility] 04/11/2018 11:23:27 Other completed Alexy Wright MD [address], [place], [address], [facility] 04/11/2018 11:23:40 Imaging Results Imaging Date Name Status LastModified by Organiz ation Details LastModified Time 01/31/2021 MAMMO, screening, bilateral completed [email or web address] [place] [address] [address], [place], [address], 02/09/2021 16:05:16 03/22/2021 US, breast completed [address], [place], [address], 04/11/2021 08:10:13 07/29/2021 XR, chest, 2 view completed [address], [place], [address], 08/22/2021 00:30:57 06/30/2022 bone density completed [address] [facility] [address], [place], [address], 10/06/2022 12:06:49 Procedure Notes None recorded. Medical Equipment None Reported. Allergies Allergen ID Allergen Name Allergen Category Reaction Reaction Severity Criticality Documentation Date Start Date Code Code System Note Provider Name and Address Organization Details Recorded Time 1931 codeine medicatio n rash vomiting Not available Not available Not available 04/11/2018 2670 RxNorm Karen hoang [facility] 8 10:39:37 Medications Name Sig Start Date Stop Date Status Note LastModified by Organization Details LastModified Time doxycycli ne hyclate 100 mg capsule Take 1 capsule twice a day by oral route for 10 days. 10/14 completed Not Available Not Available Not Available atorvasta tin 20 mg tablet TAKE 1 TABLET BY MOUTH EVERY DAY 2022 active Not Available Not Available Not Avai lable cetirizin e 10 mg tablet TAKE 1 TABLET BY MOUTH EVERYDAY AT BEDTIME 05/21 completed Not Available Not Available Not Available indapamid e 2.5 mg tablet 09/09 completed -- changed to Metorpro lol 25 mg qd due to severe Hypokale soumya Not Available Not Available Not Available alprazola m 1 mg tablet 10/06 completed Not Available Not Available Not Available benzonata te 200 mg capsule 1 tab once up to 3 times a day as needed; can cause drowsine ss 11/04 completed Not Available Not Available Not Available metoprolo l succinate ER 50 mg tablet,ex tended release 24 hr TAKE 1 TABLET BY MOUTH EVERY DAY active Not Available Not Available No t Available lisinopri l 20 mg tablet TAKE 1 TABLET BY MOUTH EVERY DAY 09/09 completed -- increase d to 40 mg qd Not Available Not Available Not Available prednison e 20 mg tablet 05/16 completed Not Available Not Available Not Available alendrona te 70 mg tablet TAKE 1 TABLET BY MOUTH ONCE A WEEK FIRST THING IN MORNING ON AN EMPTY STOMACH 05/22 completed -- changed to reclast Not Available Not Available Not Available meclizine 12.5 mg tablet Take 1 tablet 3 times a day by oral route as needed. 05/21 completed Not Available Not Available Not Available potassium chloride ER 10 mEq tablet,ex tended release TAKE 1 TABLET BY MOUTH EVERY DAY 10/05 completed Not Available Not Available Not Available amlodipin e 5 mg tablet TAKE 1 TABLET BY MOUTH EVERY DAY 2022 active Not Available Not Available Not Avai lable aspirin 81 mg tablet,de layed release Take 1 tablet every day by oral route. active -- on otc Aspirin daily Not Available Not Available Not Available tramadol 50 mg tablet 1 tab once, up to twice a day as needed only; 12/29 completed Not Available Not Available Not Available acetamino phen 500 mg tablet TAKE 2 TABLETS BY MOUTH TWICE A DAY NEEDED (MUST NOT CONSUME ALCOHOL) active Not Available Not Available No t Available alprazola m 0.25 mg tablet 1 tab twice a day as needed -- to be used for weaning off Alprazol am 1 mg Rx 05/21 completed Not Available Not Available Not Available citalopra m 20 mg tablet 1 TAB DAILY AT 4 PM 09/09 completed -- sleep talking and myalgia Not Available Not Available Not Available pravastat in 80 mg tablet Please specify directio ns, refills and quantity active Not Available Not Available No t Available baclofen 10 mg tablet Take 1 tablet twice a day by oral route. 12/29 completed Not Available Not Available Not Available gemfibroz il 600 mg tablet 05/09 completed --- ASCVD Risk of 14.2% will change to Rosuvast atin. Not Available Not Available Not Available pantopraz ole 40 mg tablet,de layed release TAKE 1 TABLET BY MOUTH EVERY DAY 2022 active Not Available Not Available Not Avai lable indapamid e 1.25 mg tablet TAKE 1 TABLET BY MOUTH EVERY DAY IN THE MORNING active Not Available Not Available No t Available sertralin e 25 mg tablet TAKE 1 TABLET BY MOUTH EVERY DAY active Not Available Not Available No t Available Levaquin 500 mg tablet 1 tab daily; can cause tendonit is &/or tendon rupture 10/06 completed Not Available Not Available Not Available metoprolo l succinate ER 25 mg tablet,ex tended release 24 hr TAKE 1 TABLET BY MOUTH EVERY DAY active Not Available Not Available No t Available lisinopri l 40 mg tablet TAKE 1 TABLET BY MOUTH EVERY DAY active Not Available Not Available No t Available fluticaso ne propionat e 50 mcg/actua tion nasal spray,philip pension SPRAY 1 SPRAY INTO EACH NOSTRIL EVERY DAY 2021 active Not Available Not Available Not Avai lable sertralin e 50 mg tablet TAKE 1 TABLET BY MOUTH EVERY DAY active Not Available Not Available No t Available amoxicill in 875 mg-potass ium clavulana te 125 mg tablet Take 1 tablet every 12 hours by oral route. 10/05 completed Not Available Not Available Not Available Ventolin HFA 90 mcg/actua tion aerosol inhaler 12/29 completed Not Available Not Available Not Available Pneumovax -23 25 mcg/0.5 mL injection syringe TO BE ADMINIST ERED BY PHARMACI ST FOR IMMUNIZA TION 11/24 completed Not Available Not Available Not Available rosuvasta tin 10 mg tablet 01/22 completed -- will change to Atorvast atin 20 mg 1 tab daily Not Available Not Available Not Available duloxetin e 30 mg capsule,d elayed release Take 1 capsule every day by oral route. 05/21 completed Not Available Not Available Not Available duloxetin e 60 mg capsule,d elayed release Take 1 capsule every day by oral route. 05/21 completed Not Available Not Available Not Available Boostrix Tdap 2.5 Lf unit-8 mcg-5 Lf/0.5 mL intramusc ular syringe 09/09 completed Not Available Not Available Not Available Symbicort 80 mcg-4.5 mcg/actua tion HFA aerosol inhaler Inhale 2 puffs twice a day by inhalati on route. active Not Available Not Available No t Available Reclast 5 mg/100 mL intraveno us piggyback 5 mg infusion over 15 min -- once a year 2021 active Not Available Not Available Not Avai lable Mucinex 1,200 mg tablet, extended release Take 1 tablet every 12 hours by oral route. 10/06 completed Not Available Not Available Not Available Mucinex DM 60 mg-1,200 mg tablet,ex tended release 12 hr Take 1 tablet twice a day by oral route. 11/04 completed Not Available Not Available Not Available GaviLyte- N 420 gram oral solution 09/09 completed Not Available Not Available Not Available Vascepa 1 gram capsule Take 2 capsules twice a day by oral route. 05/21 completed -- pt cannot afford it. Not Available Not Available Not Available potassium chloride ER 20 mEq tablet,ex tended release TAKE 1 TABLET BY MOUTH EVERY DAY active Not Available Not Available No t Available Shingrix (PF) 50 mcg/0.5 mL intramusc ular suspensio n, kit 05/21 completed Not Available Not Available Not Available Fluzone High-Dose 2019- (PF) 180 mcg/0.5 mL intramusc ular syringe TO BE ADMINIST ERED BY PHARMACI ST FOR IMMUNIZA TION 11/24 completed Not Available Not Available Not Available Fluzone High-Dose Quad 2019- (PF) 240 mcg/0.7 mL IM syringe TO BE ADMINIST ERED BY PHARMACI ST FOR IMMUNIZA TION 11/24 completed Not Available Not Available Not Available Vitals Date Recorded Body height Body mass index (BMI) Body weight Respiratory rate Body temperature Heart rate Provider Name and Address Organization Details Last Updated DateTime 3 154.94 cm 28.9 kg/m2 89192.6 3 g 16 /min 98 [degF] 73 /min Rosa Barcenas [facility] 3 11:08:58 Date Recorded Systolic blood pressure Diastolic blood pressure Provider Name and Address Organization Details Last Updated DateTime 10/06/2022 151 mm[Hg] 93 mm[Hg] Alexy Wright MD [address], [place], [address] 10/06/2022 11:40:18 Date Recorded Body height Respiratory rate Body mass index (BMI) Body weight Body temperature Heart rate Provider Name and Address Organization Details Last Updated DateTime 1 154.94 cm 16 /min 27.8 kg/m2 14467.0 8 g 97.7 [degF] 78 /min Karen Perla [facility] 1 15:33:26 Date Recorded Systolic blood pressure Diastolic blood pressure Provider Name and Address Organization Details Last Updated DateTime 11/24/2020 142 mm[Hg] 79 mm[Hg] Alexy Wright MD [address], [place], [address], [facility] 11/24/2020 15:59:29 Date Recorded Body height Body mass index (BMI) Body weight Body temperature Respiratory rate Heart rate Systolic blood pressure Diastolic blood pressure Systolic blood pressure Diastolic blood pressure Provider Name and Address Organization Details Last Updated DateTime 1 154.94 cm 29.3 kg/m2 80896.8 2 g 98.2 [degF] 20 /min 72 /min 157 mm[Hg] 96 mm[Hg] 175 mm[Hg] 90 mm[Hg] Diane Webster od [facility] 1 12:18:11 Date Recorded Body height Body mass index (BMI) Body weight Body temperature Respiratory rate Heart rate Provider Name and Address Organization Details Last Updated DateTime 2 154.94 cm 29.7 kg/m2 74358 g 98.4 [degF] 16 /min 71 /min Blank Rodríguez [facility] 2 15:31:58 Date Recorded Systolic blood pressure Diastolic blood pressure Provider Name and Address Organization Details Last Updated DateTime 10/05/2021 127 mm[Hg] 88 mm[Hg] Alexy Wright MD [address] [facility] [address], [place], [address], [facility] 10/05/2021 16:45:27 Date Recorded Body height Body mass index (BMI) Body weight Respiratory rate Body temperature Heart rate Systolic blood pressure Diastolic blood pressure Provider Name and Address Organization Details Last Updated DateTime 2 154.94 cm 29.3 kg/m2 35439.8 2 g 16 /min 96.6 [degF] 74 /min 157 mm[Hg] 85 mm[Hg] Rosa Swapna [facility] 2 11:21:48 Social History Question Answer Notes LastModified by Organizat ion Details LastModified Time Tobacco Smoking Status Never Smoker Karen hoang, [facility] 04/11/2018 11:07:05 Do You Have An Advance Directive? No Information not available 04/11/2018 What Is Your Level Of Alcohol Consumption? None Information not available 04/11/2018 What Is Your Level Of Caffeine Consumption? Occasional 1 Cup Coffee Daily Information not available 10/06/2022 How Much Tobacco Do You Chew? None Information not available 04/11/2018 What Is Your Code Status? Full Code Information not available 04/11/2018 In The 14 Days Before Symptom Onset, Have You Had Close Contact With A Laboratory-confir med COVID-19 While That Case Was Ill? No Information not available 11/24/2019 In The 14 Days Before Symptom Onset, Have You Had Close Contact With A Person Who Is Under Investigation For COVID-19 While That Person Was Ill? No Information not available 11/24/2019 Have You Been To An Area Known To Be High Risk For COVID-19? No Information not available 11/24/2019 Are You Currently Employed? No Information not available 04/11/2018 What Type Of Diet Are You Following? REGULAR Information not available 04/11/2018 Which Illicit Or Recreational Drugs Have You Used? None Information not available 04/11/2018 Do You Or Have You Ever Used E-cigarettes Or Vape? 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 10/06/2022 Information not available 10/06/2022 Do You Or Have You Ever Used Smokeless Tobacco? Never Used Smokeless Tobacco Information not available 11/24/2019 How Much Tobacco Do You Smoke? No Information not available 04/11/2018 Do You Use Any Illicit Or Recreational Drugs? No [email or web address] Information not available 10/05/2021 How Many Years Have You Smoked Tobacco? 0 Information not available 04/11/2018 Do You Or Have You Ever Used Any Other Forms Of Tobacco Or Nicotine? No [email or web address] Information not available 10/05/2021 Sex: Unknown Functional Status Question Answer Note LastModified by Organizat ion Details LastModified Time What is your exercise level? Moderate rowing machine, bike, & treadmill 4 times a week -- about 6-12 min. Information not available 04/11/2018 Mental Status None recorded. Family History Relationship Description Onset Age of this Age Resolved Age Notes LastModified by Organization Details LastModified Time Mother Heart disease CHF [email or web address] Not available 2017 11:02:55 Mother Osteoporosis lcallison Not avai lable 04/11/2018 11:04:15 Mother Diabetes mellitus lcallison Not available 2017 11:04:38 Sister Osteoporosis lcallison Not avai lable 04/11/2018 11:04:15 Sister Osteoporosis lcallison Not avai lable 04/11/2018 11:04:15 Sister Diabetes mellitus lcallison Not available 2017 11:04:38 Sister Malignant tumor of breast Dx'd while in her 60's lcallison Not available 04/11/2018 11:05:51 Sister Asthma lcallison Not available 04/11/2018 11:08:25 Maternal Grandmother Diabetes mellitus lcallison Not available 2017 11:04:38 Maternal Grandfather Neoplasm of stomach dx'd @ 62 y/o lcallison Not available 04/11/2018 11:06:53 Maternal Aunt Malignant tumor of breast dx'd while in her 60's lcallison Not available 04/11/2018 11:05:51 Medical History No medical history recorded. Gynecological History Statement/Question Response Date of Last Pap Smear Date of Last Mammogram 01/31/2021 Date of Last Colonoscopy Obstetrics History GPAL:G 0 P 0 0 0 0 Immunizations Vaccine Type Date Status Note Provider Nam e and Address Organization Details Recorded Time Pneumococcal conjugate PCV 13 8 completed Not Available [facility] 10/03/2023 05:34:14 Tdap 8 completed Not Available [facility] 10/03/2023 05:34:14 Influenza, high-dose, trivalent, PF 8 completed Not Available [facility] 10/03/2023 05:34:14 zoster recombinant 9 completed Not Available [facility] 10/03/2023 05:34:14 zoster recombinant 9 completed Not Available [facility] 10/03/2023 05:34:14 Influenza, high-dose, trivalent, PF 9 completed Not Available [facility] 10/03/2023 05:34:14 pneumococcal polysaccharide PPV23 0 completed Not Available [facility] 10/03/2023 05:34:14 Influenza, high-dose, quadrivalent, PF 0 completed Not Available [facility] 10/03/2023 05:34:14 COVID-19, mRNA, LNP-S, PF, 100 mcg/0.5mL dose or 50 mcg/0.25mL dose 1 completed Not Available [facility] 10/03/2023 05:34:14 COVID-19, mRNA, LNP-S, PF, 100 mcg/0.5mL dose or 50 mcg/0.25mL dose 1 completed Not Available [facility] 10/03/2023 05:34:14 Influenza, adjuvanted, quadrivalent, PF 1 completed Not Available [facility] 10/03/2023 05:34:14 COVID-19, mRNA, LNP-S, PF, 100 mcg/0.5mL dose or 50 mcg/0.25mL dose 1 completed Not Available [facility] 10/03/2023 05:34:14 Influenza, split virus, quadrivalent, preservative 2 completed Not Available [facility] 10/03/2023 05:34:14 Influenza, adjuvanted, quadrivalent, PF 3 completed Not Available [facility] 10/03/2023 05:34:14 Past Encounters Encounter ID Performer Location Encounter Start Date Encounter Closed Date Diagnosis/Indication Diagnosis SNOMED-CT Code Diagnosis ICD10 Code Diagnosis Note [id number] Alexy Wright MD [facility], [facility] [address] [address] [place] [address] 04/11/2018 09:50:22 04/11/2018 12:07:31 Benign essential hypertension 6266203 I10 Gastroesop hageal reflux disease without esophagitis 768928382 K21.9 (w/ Hiatal Hernia on UGI) Hyperlipidemia 51966520 E78.5 Asthma 456110177 J45.90 9 -- have not started on Ventolin since diagnosis. Bilateral arthritis of knees 9009429690 666208 M13.861 (R>>L) -- Was advised to have total knee replacemen t by orthopedic surgeon; patient prefers no surgery at this point; pt has tramadol given by Ortho but she does not wants meds. Osteopenia 401364467 M85 .9 Mixed anxi ety and depressive disorder 875830821 F41.8 Fatigue 38422995 R53.83 Hepatitis C screening 41 7300161 Z11.59 Active or passive immunization 546987021 Z23 Screening for malignant neoplasm of colon 788695729 Z12.11 Screening for malignant neoplasm of breast 997040813 Z12.31 Screening for malignant neoplasm of cervix 871053432 Z12.4 Advance di rective discussed with patient 877633413 Z71.89 Body mass index 25-29 - overweight 836530007 Z68.28 -- will advised weight loss-- pt's BMI today is 28.2 (ideal is between 20-25) [id number] Alexy Wright MD [facility], [facility] [address] [place] [address] 05/09/2018 14:25:16 05/09/2018 16:29:28 Adult health examination 768681617 Z00.00 Benign ess ential hypertension 4281499 I10 -- last EKG was done on 04/11/18-- recheck lab(s) on 10/16/18 Hyperlipidemia 98151604 E78.5 -- Based on ASCVD risk calculatio n today 05/09/18 of 14.2%; will change Gemfibrozi l to Rosuvastat in.-- recheck lab(s) on 10/16/18 Gastroesop hageal reflux disease without esophagitis 757851785 K21.9 (w/ Hiatal Hernia on UGI) Asthma 992861031 J45.90 9 -- have not started on Ventolin since diagnosis. -- spirometry last done on 04/15/18 Osteopenia 353223677 M85 .9 -- on Alendronat e 70 mg weekly-- recheck lab(s) on 10/16/18 Bilateral arthritis of knees 5636299881 150161 M13.861 (R>>L) -- Was advised to have total knee replacemen t by orthopedic surgeon; patient prefers no surgery at this point; pt has tramadol given by Ortho but she does not wants meds. Body mass index 25-29 - overweight 295242455 Z68.28 -- will advised weight loss-- pt's BMI today is 28.2 (ideal is between 20-25) Fatigue 68735516 R53.83 -- recheck lab(s) on 10/16/18 Mixed anxi ety and depressive disorder 139044096 F41.8 -- recheck lab(s) on 10/16/18 Advance di rective discussed with patient 675315551 Z71.89 Hepatitis C screening 41 0366457 Z11.59 -- Hepatitis C antibody is nonreactiv e on 04/11/18 Active or passive immunization 921793175 Z23 Screening for malignant neoplasm of colon 891132277 Z12.11 -- stool globin negative for occult blood on 04/15/18 Screening for malignant neoplasm of breast 972637761 Z12.31 -- Report she will not be due for another mammogram until August 2018 Screening for malignant neoplasm of cervix 051041110 Z12.4 -- Patient reschedule d appointmen t with gynecologi st Dr. Slava Christianson for around May 30, 2018 Liver enzy mes level above reference range 172978892 R74.8 [id number] Alexy Wright MD [facility], [facility] [address] [place] [address] 09/09/2018 11:33:05 09/09/2018 14:34:02 Acute sinusitis 78981241 J01.90 -- will issue Levaquin (pt advised that it can cause tendonitis & or tendon rupture). Pt does not want any penicillin or its related. Benign ess ential hypertension 3151379 I10 -- last EKG was done on 04/11/18-- will discontinu e the Indapamide (due to severe Hypokalemi a) and increase Lisinopril from 20 mg to 40 mg daily. -- recheck lab(s) on 10/16/18 Hyperlipidemia 18530239 E78.5 -- Based on ASCVD risk calculatio n today 05/09/18 of 14.2%; will change Gemfibrozi l to Rosuvastat in.-- recheck lab(s) on 10/16/18 Gastroesop hageal reflux disease without esophagitis 949294853 K21.9 (w/ Hiatal Hernia on UGI) Asthma 919676033 J45.90 9 -- have not started on Ventolin since diagnosis. -- spirometry last done on 04/15/18 Osteopenia 567321103 M85 .9 -- on Alendronat e 70 mg weekly-- recheck lab(s) on 10/16/18 Bilateral arthritis of knees 9129333856 870956 M13.861 (R>>L) -- Was advised to have total knee replacemen t by orthopedic surgeon; patient prefers no surgery at this point; pt has tramadol given by Ortho but she does not wants meds. Body mass index 25-29 - overweight 473979209 Z68.28 -- will advised weight loss-- pt's BMI today is 28.2 (ideal is between 20-25) Fatigue 11474247 R53.83 -- recheck lab(s) on 10/16/18 Mixed anxi ety and depressive disorder 604893485 F41.8 -- recheck lab(s) on 10/16/18-- pt self weaned off Citalopram bc she was talking in her sleep & bc of muscle aches. Liver enzy mes level above reference range 966782708 R74.8 w/ dilated Common Bile Duct --referred pt to Gastroente rologist Dr Kennedy Barber for further eval. Advance di rective discussed with patient 133751037 Z71.89 Hepatitis C screening 41 7793368 Z11.59 -- Hepatitis C antibody is nonreactiv e on 04/11/18 Active or passive immunization 246421248 Z23 Screening for malignant neoplasm of colon 431345062 Z12.11 -- stool globin negative for occult blood on 04/15/18 Screening for malignant neoplasm of breast 789054894 Z12.31 -- Report she will not be due for another mammogram until August 2018 Screening for malignant neoplasm of cervix 011798286 Z12.4 -- Patient reschedule d appointmen t with gynecologi st Dr. Slava Christianson for around May 30, 2018 Hypokalemia 02510109 E87 .6 -- will discontinu e the Indapamide and increase Lisinopril from 20 mg to 40 mg daily. Mammography abnormal 168 443087 R92.8 Rt bonny-areol a Breast mass -- inform patient to get additional imaging done. [id number] LESTER GALLO APN [facility] [address] [place] [address] 10/08/2018 11:12:03 10/08/2018 11:56:51 Sinusitis 45371888 J32.9 completed abx - augmentin in hospitalth en levaquin 09/09/18no t taking mucinex as ordered during last visit - Vertigo 823742039 R42 CT brain competed at [facility] - normalCaro tids <50% bilaterall y Hypokalemia 81469861 E87 .6 Benign hypertension 1072 5009 I10 uncontroll ed on current regimen -bp check in 2 days [id number] Alexy Wright MD [facility] [address] [place] [address] 10/21/2018 12:33:42 10/21/2018 14:52:24 Hypokalemia 72177570 E87.6 -- resolved on 10/08/18 Mammography abnormal 168 546637 R92.8 Rt bonny-areol a Breast mass -- informed patient to get additional imaging done. Benign ess ential hypertension 2672647 I10 -- last EKG was done on 04/11/18-- will discontinu e the Indapamide (due to severe Hypokalemi a) and increase Lisinopril from 20 mg to 40 mg daily. -- recheck lab(s) on 04/08/19 Hyperlipidemia 64607296 E78.5 -- Based on ASCVD risk calculatio n today 05/09/18 of 14.2%; will change Gemfibrozi l to Rosuvastat in.-- recheck lab(s) within 3 weeks from 10/21/18 Gastroesop hageal reflux disease without esophagitis 964491296 K21.9 (w/ Hiatal Hernia on UGI) Asthma 998136627 J45.90 9 -- have not started on Ventolin since diagnosis. -- spirometry last done on 04/15/18 Osteopenia 506923736 M85 .9 (in L-spine & Hip on DEXA done on 09/09/18 ) -- on Alendronat e 70 mg weekly-- recheck lab(s) within 3 weeks from 10/21/18 Bilateral arthritis of knees 3578848297 991927 M13.861 (R>>L) -- Was advised to have total knee replacemen t by orthopedic surgeon; patient prefers no surgery at this point; pt has tramadol given by Ortho but she does not wants meds. Body mass index 25-29 - overweight 887669893 Z68.27 -- advised weight loss; pt lost 5 # since her last visit-- pt's BMI today is 27.6 (ideal is between 20-25) Mixed anxi ety and depressive disorder 661498178 F41.8 -- recheck lab(s) on 10/16/18-- pt self weaned off Citalopram bc she was talking in her sleep & bc of muscle aches. Liver enzy mes level above reference range 236046367 R74.8 w/ dilated Common Bile Duct --referred pt to Gastroente rologist Dr Kennedy Barber for further eval.-- recheck lab(s) within 3 weeks from 10/21/18 Advance di rective discussed with patient 645270099 Z71.89 Hepatitis C screening 41 5651200 Z11.59 -- Hepatitis C antibody is nonreactiv e on 04/11/18 Active or passive immunization 748163011 Z23 Screening for malignant neoplasm of colon 148483191 Z12.11 -- stool globin negative for occult blood on 04/15/18 Screening for malignant neoplasm of breast 627472871 Z12.31 -- last mammogram done on 10/17/18 Screening for malignant neoplasm of cervix 815912553 Z12.4 -- Patient reschedule d appointmen t with gynecologi st Dr. Slava Christianson for around May 30, 2018 Viral uppe r respiratory tract infection 987674702 J06.9 -- had finished Augemntin 875 on 08/10/18, Levaquin 500 mg issued on 09/09/18; and pt received Doxycyclin e 100mg on 10/08/18 -- I advised pt that she has the cold and her sx will not respond to any ABx. -- I also instruct pt to go to the Emergency Room if any SOB or increasing weakness. Hyperglycemia 82722932 R 73.9 -- recheck lab(s) within 3 weeks from 10/21/18 [id number] Alexy Wright MD [facility] [address] [place] [address] 11/11/2018 10:44:27 11/11/2018 12:46:10 Viral upper respiratory tract infection 979438463 J06.9 -- resolved Benign ess ential hypertension 0141209 I10 -- last EKG was done on 04/11/18-- will discontinu e the Indapamide (due to severe Hypokalemi a) and increase Lisinopril from 20 mg to 40 mg daily. -- recheck lab(s) on 05/01/19 Hyperlipidemia 18735826 E78.5 -- Based on ASCVD risk calculatio n today 05/09/18 of 14.2%; will change Gemfibrozi l to Rosuvastat in. -- recheck lab(s) on 05/01/19 Gastroesop hageal reflux disease without esophagitis 770474164 K21.9 (w/ Hiatal Hernia on UGI) Asthma 526072940 J45.90 9 (asymptoma tic) -- have not started on Ventolin since diagnosis. -- spirometry last done on 04/15/18 Osteopenia 688316792 M85 .9 (in L-spine & Hip on DEXA done on 09/09/18 ) -- on Alendronat e 70 mg weekly-- recheck lab(s) on 05/01/19 Bilateral arthritis of knees 4919660985 108908 M13.861 (R>>L) -- Was advised to have total knee replacemen t by orthopedic surgeon; patient prefers no surgery at this point; pt has tramadol given by Ortho but she does not wants meds. Body mass index 25-29 - overweight 735339280 Z68.25 -- advised weight loss; no weight change since her last visit-- pt's BMI today is 27.6 (ideal is between 20-25) Mixed anxi ety and depressive disorder 074360677 F41.8 -- recheck lab(s) on 10/16/18-- pt self weaned off Citalopram bc she was talking in her sleep & bc of muscle aches. Liver enzy mes level above reference range 191933600 R74.8 w/ dilated Common Bile Duct -- pt saw Gastroente rologist Dr Kennedy Barber on 07/05/19-- recheck lab(s) on 05/01/19 Hyperglycemia 83788695 R 73.9 -- A1c level V.5 on 11/01/18. Mammography abnormal 168 120473 R92.8 -- Need to repeat mammogram one year from 10/17/18 Advance di rective discussed with patient 423778946 Z71.89 Hepatitis C screening 41 4080080 Z11.59 -- Hepatitis C antibody is nonreactiv e on 04/11/18 Active or passive immunization 390699452 Z23 Screening for malignant neoplasm of colon 958191150 Z12.11 -- stool globin negative for occult blood on 04/15/18-- referred pt to Dr Kennedy Barber Screening for malignant neoplasm of breast 633778824 Z12.31 -- last mammogram done on 10/17/18 Screening for malignant neoplasm of cervix 917321229 Z12.4 -- Patient reports 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 Slava Christianson around May 30, 2018 [id number] Alexy Wright MD [facility] [address] [place] [address] 05/21/2019 11:38:55 05/21/2019 13:25:48 Benign essential hypertension 1124166 I10 -- last EKG was done on 08/11/18 at [facility] which showed normal sinus rhythm.-- will discontinu e the Indapamide (due to severe Hypokalemi a) and increase Lisinopril from 20 mg to 40 mg daily. -- recheck lab(s) Hyperlipidemia 01017380 E78.5 -- Based on ASCVD risk calculatio n today 05/09/18 of 14.2%; will change Gemfibrozi l to Rosuvastat in. For cost saving, changed Rosuvastat in to Atorvastat in Pt is going to take Fish Oil instead of Vascepa that was rx'd Recheck lab Gastroesop hageal reflux disease without esophagitis 510630539 K21.9 (w/ Hiatal Hernia on UGI) - on Protonix 40 mg Asthma 413437749 J45.90 9 (asymptoma tic) -- have not started on Ventolin since diagnosis. -- spirometry last done on 04/15/18 Osteopenia 066089055 M85 .9 (in L-spine & Hip on DEXA done on 09/09/18 ) -- on Alendronat e 70 mg weekly-- Vit D 52 on 11/01/2018 Bilateral arthritis of knees 8438675139 563806 M13.861 (R>>L) -- Was advised to have total knee replacemen t by orthopedic surgeon; patient prefers no surgery at this point; pt has tramadol given by Ortho but she does not wants meds. Body mass index 25-29 - overweight 963249534 Z68.25 -- advised weight loss; no weight change since her last visit-- pt's BMI today is 27.6 (ideal is between 20-25) Mixed anxi ety and depressive disorder 817650627 F41.8 -- pt self weaned off Citalopram bc she was talking in her sleep & bc of muscle aches. Pt is on Sertraline (never pickle cutter Duloxetine due to cost) Liver enzy mes level above reference range 215160703 R74.8 w/ dilated Common Bile Duct -- pt saw Gastroente rologist Dr Kennedy Barber on 07/05/18 -- recheck lab(s) on 05/01/19 --- not done Hyperglycemia 09040722 R 73.9 -- A1c level 55 on 11/01/18. Mammography abnormal 168 688500 R92.8 -- Need to repeat mammogram one year from 10/17/18 Advance di rective discussed with patient 830098792 Z71.89 Hepatitis C screening 41 0609696 Z11.59 -- Hepatitis C antibody is nonreactiv e on 04/11/18 Active or passive immunization 192126027 Z23 need Pnuemonia shot - not in record from 2017 or 2018 Screening for malignant neoplasm of colon 375437174 Z12.11 -- stool globin negative for occult blood on 04/15/18-- referred pt to Dr Kennedy Barber. 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 Slava Christianson around May 30, 2018 [id number] Alexy Wright MD [facility] [address] [place] [address] 11/24/2019 09:52:44 11/24/2019 10:50:41 Adult health examination 795048822 Z00.00 Benign ess ential hypertension 4246284 I10 -- last EKG was done on 08/11/18 at [facility] which showed normal sinus rhythm.-- will discontinu e the Indapamide (due to severe Hypokalemi a) and increase Lisinopril from 20 mg to 40 mg daily. -- recheck lab(s) Hyperlipidemia 35603198 E78.5 -- Based on ASCVD risk calculatio n today 05/09/18 of 14.2%; will change Gemfibrozi l to Rosuvastat in. For cost saving, changed Rosuvastat in to Atorvastat in Pt is going to take Fish Oil instead of Vascepa that was rx'd Recheck lab Gastroesop hageal reflux disease without esophagitis 552952828 K21.9 (w/ Hiatal Hernia on UGI) - on Protonix 40 mg Asthma 977471619 J45.90 9 (asymptoma tic) -- have not started on Ventolin since diagnosis. -- spirometry last done on 04/15/18 Osteopenia 125449406 M85 .9 (in L-spine & Hip on DEXA done on 09/09/18 ) -- on Alendronat e 70 mg weekly-- Vit D 52 on 11/01/2018 -- last Reclast infusion was around March 2019 Bilateral arthritis of knees 3938547908 644083 M13.861 (R>>L) -- Was advised to have total knee replacemen t by orthopedic surgeon; patient prefers no surgery at this point; pt has tramadol given by Ortho but she does not wants meds. Body mass index 25-29 - overweight 262154079 Z68.28 -- advised weight loss; no weight change since her last visit-- pt's BMI today is 28 (ideal is between 20-25) Mixed anxi ety and depressive disorder 297116751 F41.8 -- pt self weaned off Citalopram bc she was talking in her sleep & bc of muscle aches. Pt is on Sertraline (never pickle cutter Duloxetine due to cost) Liver enzy mes level above reference range 802650983 R74.8 w/ dilated Common Bile Duct -- pt saw Gastroente rologist Dr Kennedy Barber on 07/05/18 -- recheck lab(s) on 05/01/19 --- not done Hyperglycemia 15467471 R 73.9 -- A1c level 5.5 on 11/01/18. Advance di rective discussed with patient 640228807 Z71.89 Hepatitis C screening 41 6226749 Z11.59 -- Hepatitis C antibody is nonreactiv e on 04/11/18 Active or passive immunization 604400038 Z23 need Pnuemonia shot - not in record from 2017 or 2018 Screening for malignant neoplasm of colon 292587843 Z12.11 -- stool globin negative for occult blood on 04/15/18-- referred pt to Dr Kennedy Barber. Had colonoscop y scheduled for 08/13/18 but cancelled and has not reschedule d.-- pt counseled to re-schedul e Screening for malignant neoplasm of breast 431477626 Z12.31 -- last mammogram done on 11/19/19 Screening for malignant neoplasm of cervix 576929761 Z12.4 -- Patient reports 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 Slava Christianson around May 30, 2018-- pt does not want to see him again as he was 'rough' [id number] Alexy Wright MD [facility] [address] [place] [address] 05/26/2020 10:57:52 05/26/2020 12:12:48 Benign essential hypertension 2723931 I10 (w/ ^microalb- cr) -- last EKG was done on 08/11/18 at [facility] which showed normal sinus rhythm.-- will discontinu e the Indapamide (due to severe Hypokalemi a) and increase Lisinopril from 20 mg to 40 mg daily. -- recheck lab(s) on 11/18/20 Hyperlipidemia 48233769 E78.5 (LDL of 58 on 05/24/20) -- you will need to limit Carbohydra yessica intake to between 40- 50 gram per meal & also between 120 - 150 grams a day. -- Examples of Carbohydra yessica are: ice-cream, sweet sugar treats, rice, potatoes, sweet potatoes (yams), bananas, corn products (popcorn, corn muffin, corn bread, cornflakes , corn ), oats, flour products (pasta, bread, bagel, muffins, donuts, biscuits, cookies, crackers, pancakes, waffle, cakes, pies &/or Alcohol. -- recheck lab(s) on 11/18/20 Gastroesop hageal reflux disease without esophagitis 132502310 K21.9 (w/ Hiatal Hernia on UGI) - on Protonix 40 mg Asthma 705021261 J45.90 9 (asymptoma tic) -- have not started on Ventolin since diagnosis. -- spirometry last done on 04/15/18 Osteopenia 981952812 M85 .9 (in L-spine & Hip on DEXA done on 09/09/18 ) -- on Alendronat e 70 mg weekly-- Vit D 52 on 11/01/2018 -- last Reclast infusion was around March 2019 Bilateral arthritis of knees 3800810349 687244 M13.861 (R>>L) -- Was advised to have total knee replacemen t by orthopedic surgeon; patient prefers no surgery at this point; pt has tramadol given by Ortho but she does not wants meds. Body mass index 25-29 - overweight 548583977 Z68.25 -- advised weight loss; pt lost 5 # since her last visit-- pt's BMI today is 27 (ideal is between 20-25) Mixed anxi ety and depressive disorder 310398982 F41.8 -- pt self weaned off Citalopram bc she was talking in her sleep & bc of muscle aches. Pt is on Sertraline (never pickle cutter Duloxetine due to cost) Liver enzy mes level above reference range 978963652 R74.8 w/ dilated Common Bile Duct -- pt saw Gastroente rologist Dr Kennedy Barber on 07/05/18 Hyperglycemia 63978459 R 73.9 -- A1c level 5.5 (11/01/18) --> 5.6 (09/12/19) Advance di rective discussed with patient 299070643 Z71.89 Hepatitis C screening 41 4514614 Z11.59 -- Hepatitis C antibody is nonreactiv e on 04/11/18 Active or passive immunization 521159897 Z23 -- current Screening for malignant neoplasm of colon 798085715 Z12.11 -- stool globin negative for occult blood on 04/15/18-- referred pt to Dr Kennedy Barber. 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 Slava Christianson around May 30, 2018-- pt does not want to see him again as he was 'rough' [id number] Alexy Wright MD [facility] [address] [place] [address] 11/24/2020 14:39:59 11/24/2020 16:13:55 Benign essential hypertension 3184632 I10 (w/ ^microalb- cr) -- last EKG was done on 08/11/18 at [facility] which showed normal sinus rhythm. -- will discontinu e the Indapamide (due to severe Hypokalemi a) and increase Lisinopril from 20 mg to 40 mg daily. -- recheck lab(s) on 11/18/20 Hyperlipidemia 64215893 E78.5 (LDL of 58 on 05/24/20) -- you will need to limit Carbohydra yessica intake to between 40- 50 gram per meal & also between 120 - 150 grams a day. -- Examples of Carbohydra yessica are: ice-cream, sweet sugar treats, rice, potatoes, sweet potatoes (yams), bananas, corn products (popcorn, corn muffin, corn bread, cornflakes , corn ), oats, flour products (pasta, bread, bagel, muffins, donuts, biscuits, cookies, crackers, pancakes, waffle, cakes, pies &/or Alcohol. -- recheck lab(s) on 11/18/20 Bilateral arthritis of knees 5998490562 318262 M13.861 (R>>L) -- Was advised to have total knee replacemen t by orthopedic surgeon; patient prefers no surgery at this point; pt has tramadol given by Ortho but she does not wants meds. Gastroesop hageal reflux disease without esophagitis 807280146 K21.9 (w/ Hiatal Hernia on UGI) - on Protonix 40 mg Asthma 453273288 J45.90 9 (asymptoma tic) -- have not started on Ventolin since diagnosis. -- spirometry last done on 04/15/18 Osteopenia 496048130 M85 .9 (in L-spine & Hip on DEXA done on 09/09/18 ) -- on Alendronat e 70 mg weekly-- Vit D 52 on 11/01/2018 -- last Reclast infusion was around March 2019 Body mass index 25-29 - overweight 012956434 Z68.25 -- advised weight loss; pt lost 5 # since her last visit-- pt's BMI today is 27 (ideal is between 20-25) Mixed anxi ety and depressive disorder 761178161 F41.8 -- pt self weaned off Citalopram bc she was talking in her sleep & bc of muscle aches. Pt is on Sertraline (never pickle cutter Duloxetine due to cost) Liver enzy mes level above reference range 393882894 R74.8 w/ dilated Common Bile Duct -- pt saw Gastroente rologist Dr Kennedy Barber on 07/05/18 Hyperglycemia 86940030 R 73.9 -- A1c level 5.5 (11/01/18) --> 5.6 (09/12/19) Advance di rective discussed with patient 842707410 Z71.89 Hepatitis C screening 41 8027589 Z11.59 -- Hepatitis C antibody is nonreactiv e on 04/11/18 Active or passive immunization 844710969 Z23 -- current Screening for malignant neoplasm of colon 482726080 Z12.11 -- stool globin negative for occult blood on 04/15/18-- referred pt to Dr Kennedy Barber. 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 Slava Christianson around May 30, 2018-- pt does not want to see him again as he was 'rough' Adult heal examination 006876569 Z00.00 [id number] Alexy Wright MD [facility] [address] [place] [address] 05/27/2021 11:20:23 05/27/2021 12:58:59 Essential hypertension 61015160 I10 (w/ ^microalb- cr) -- last EKG was done on 08/11/18 at [facility] which showed normal sinus rhythm. -- will discontinu e the Indapamide (due to severe Hypokalemi a) and increase Lisinopril from 20 mg to 40 mg daily. -- recheck lab(s) within 5 days from 05/27/21 Hyperlipidemia 73226056 E78.5 (LDL of 58 on 05/24/20) -- you will need to limit Carbohydra yessica intake to between 40- 50 gram per meal & also between 120 - 150 grams a day. -- Examples of Carbohydra yessica are: ice-cream, sweet sugar treats, rice, potatoes, sweet potatoes (yams), bananas, corn products (popcorn, corn muffin, corn bread, cornflakes , corn ), oats, flour products (pasta, bread, bagel, muffins, donuts, biscuits, cookies, crackers, pancakes, waffle, cakes, pies &/or Alcohol. -- recheck lab(s) within 5 days from 05/27/21 Gastroesop hageal reflux disease without esophagitis 502819738 K21.9 (w/ Hiatal Hernia on UGI) - on Protonix 40 mg-- recheck lab(s) within 5 days from 05/27/21 Osteopenia 443558562 M85 .9 (in L-spine & Hip on DEXA done on 09/09/18 ) -- on Alendronat e 70 mg weekly-- Vit D 52 on 11/01/2018 -- last Reclast infusion was around March 2019-- recheck lab(s) within 5 days from 05/27/[id number] Alexy rWight MD [facility] [address] [place] [address] 10/05/2021 14:54:23 10/05/2021 17:00:21 Essential hypertension 51554370 I10 (w/ ^microalb- cr) -- last EKG was done on 08/11/18 at [facility] which showed normal sinus rhythm. -- will discontinu e the Indapamide (due to severe Hypokalemi a) and increase Lisinopril from 20 mg to 40 mg daily. -- recheck lab(s) today Hyperlipidemia 77379904 E78.5 -- will need to limit Carbohydra yessica intake to 40 gram per meal & also a maximum of 120 grams a day.-- Examples of Carbohydra yessica are: ice-cream, sweet sugar treats, rice, potatoes, sweet potatoes (yams), bananas, corn products (popcorn, corn muffin, corn bread, cornflakes , corn ), oats, flour products (pasta, bread, bagel, muffins, donuts, biscuits, cookies, crackers, pancakes, waffle, cakes, pies &/or Alcohol. -- recheck lab(s) today Gastroesop hageal reflux disease without esophagitis 115980198 K21.9 (w/ Hiatal Hernia on UGI) - on Protonix 40 mg-- recheck lab(s) today Osteopenia 321758896 M85 .9 (in L-spine & Hip on DEXA done on 09/09/18 ) -- on Alendronat e 70 mg weekly-- Vit D 52 on 11/01/2018 -- last Reclast infusion was around March 2019-- recheck lab(s) today Lymphocytosis 43832405 D 72.820 -- referred pt to Heme/Onc Dr Yusuf Stewart [id number] Alexy Wright MD [facility] [address] [place] [address] 04/04/2022 11:00:18 04/04/2022 12:34:18 Adult health examination 451845418 Z00.00 Essential hypertension 64784888 I10 (w/ ^microalb- cr) -- last EKG was done on 08/11/18 at [facility] which showed normal sinus rhythm. -- will discontinu e the Indapamide (due to severe Hypokalemi a) and increase Lisinopril from 20 mg to 40 mg daily. -- recheck lab(s) today Hyperlipidemia 00185225 E78.5 -- will need to limit Carbohydra yessica intake to 40 gram per meal & also a maximum of 120 grams a day.-- Examples of Carbohydra yessica are: ice-cream, sweet sugar treats, rice, potatoes, sweet potatoes (yams), bananas, corn products (popcorn, corn muffin, corn bread, cornflakes , corn ), oats, flour products (pasta, bread, bagel, muffins, donuts, biscuits, cookies, crackers, pancakes, waffle, cakes, pies &/or Alcohol. -- recheck lab(s) today Gastroesop hageal reflux disease without esophagitis 256327027 K21.9 (w/ Hiatal Hernia on UGI) - on Protonix 40 mg-- recheck lab(s) today Osteopenia 735480702 M85 .9 (in L-spine & Hip on DEXA done on 09/09/18 ) -- on Alendronat e 70 mg weekly-- Vit D 52 on 11/01/2018 -- last Reclast infusion was around March 2019-- recheck lab(s) today Lymphocytosis 37875312 D 72.820 -- referred pt to Heme/Onc Dr Yusuf Stewart Body mass index 25-29 - overweight 909239932 Z68.29 -- advised weight loss; pt lost 2 # since her last visit-- pt's BMI today is 29.3 (ideal is between 20-25) [id number] Alexy Wright MD [facility] [address] [place] [address] 10/06/2022 10:10:41 10/06/2022 12:05:39 Essential hypertension 38949788 I10 (w/ ^microalb- cr)-- uncontroll ed; will add Amlodipine . Memory lapses 206621424 R41.3 -- walk around the house and suddenly felt she had lost time (could not account for several hours lost)-- threw away car keys into trash can & later recalled she threw her keys away.-- pt also reported she threw away a gold bracelet and blue scott earings.-- pt thinks she has seizures Mixed anxi ety and depressive disorder 784787686 F41.8 -- pt feels sad and depressed (since losing her son) in January 2020-- will refer pt to counselor Fermin Sal Lymphocytosis 20788111 D 72.820 -- B-cell lymphocyto sis-- seeing Heme/Onc Dr Yusuf Stewart Health Concerns Section Related Observation LastModified by Organization Detai ls LastModified Time None Recorded Concern Status LastModified by Organization Details LastModified Time None Recorded Advance Directives Directive N: Payers Encounter Date Sequence Insurance Name Policy Number Policy Garcia Covered Member ID Garcia Member ID Guarantor Name 11/24/2020 2 [email or web address] (MEDICARE SUPPLEMENT) PLAN F Candy Melugin [id number] Candy Melugin 11/24/2020 1 [place] Candy M Melugin [id number] 3 Candy Melugin 05/27/2021 2 [employer] (MEDICARE SUPPLEMENT) PLAN F Candy Melugin [id number] Candy Melugin 05/27/2021 1 [place] Candy M Melugin [id number] 3 Candy Melugin 10/05/2021 2 [employer] (MEDICARE SUPPLEMENT) PLAN F Candy Melugin [id number] Candy Melugin 10/05/2021 1 [place] Candy M Melugin [id number] 3 Candy Melugin 04/04/2022 2 [employer] (MEDICARE SUPPLEMENT) PLAN F Candy Melugin [id number] Candy Melugin 04/04/2022 1 [place] Candy M Melugin [id number] 3 Candy Melugin 10/06/2022 2 [employer] (MEDICARE SUPPLEMENT) PLAN F Candy Melugin [id number] Candy Melugin 10/06/2022 1 [place] Candy M Melugin [id number] 3 Candy Melugin Notes Date Note Type Note Provider Name and Address Organization Details Recorded Time 11/24/2020 text/html Medicare Annual Wellness VisitReported bypatient.Diet and Nutrition:healthy diet; discussed vitamin and supplement use; discussed maintaining calcium balance; discussed diet improvement Fracture Risk:no recent explained fracture; no sudden unexplained fractures; no previous musculoskeletal injuries;history of fractures(left forearm Fx at 3rd grade) Physical Activity:discussed weightbearing activities; discussed exercise habits Depression Risk:never feels sad, empty, or tearful; no loss of interest in activities; no significant changes in weight; no sleep disturbances or insomnia; no agitation; no loss of energy; no feelings of worthlessness or guilt; no thoughts of suicide; no history of depression; no history of mood disorders Orientation:no disorientation to time; no disorientation to date; no disorientation to place Concentration and Memory:no decreased concentrating ability; no memory lapses or loss; does not forget words Speech/Motor difficulties:no speech difficulties; no difficulty expressing formulated concepts; no difficulty with fine manipulative tasks; no difficulty writing/copying; no slowed reaction time; does not knock things over when trying to pick them up Hearing:no loss of hearing Vision:no vision problems Activities of Daily Living:able to bathe with limited or no assistance; able to contol urination and bowels; able to dress with limited or no assistance; able to feed self with limited or no assistance; able to get out of chair or bed with limited or no assistance; able to groom with limited or no assistance; able to toilet with limited or no assistance Instrumental Activities of Daily Living:able to do house work with limited or no assistance; able to grocery shop with limited or no assistance; able to manage medications with limited or no assistance; able to manage money with limited or no assistance; able to prepare meals with limited or no assistance; able to use the phone with limited or no assistance Falls Risk Assessment:no frequent falls while walking; no fall in the past year; no fall since last visit; no dizziness/vertigo Home Safety:no unsafe juventino hazzards; no unsafe stairs; no unsafe gas appliances; working smoke/CO detectors; use of seatbelts; no vision or hearing loss while driving; has hand bars in the bathroom/shower; good lighting in the home;fire arms Patient denies any headache/chest discomfort or pain/diaphoresis/mariela thing problems/nausea/vomit ing/any angina equivalent symptoms/visual changes Alexy Wright MD [address] [facility] [address], [place], [address], [facility] 11/24/2020 16:12:59 05/27/2021 text/html Pt comes in for HTN, HLD, GERD, Osteopenia, and weight monitoring. Pt feels well and has no c/o Patient denies any jaw or neck discomfort, left arm pain/left arm discomfort, chest discomfort/pain, diaphoresis, breathing symptoms/chest tightness, indigestion sx, n/v, any angina equivalent symptoms, etc. Alexy Wright MD [address] [facility] [address], [place], [address], [facility] 05/27/2021 12:57:38 10/05/2021 text/html Pt comes in for HTN, HLD, GERD, Osteopenia, and leukocytotis monitoring. Pt feels well (in fact pt feels so well, she wants her WBC recheck today.Pt has no f/c, n/v, headaches, confusion, rash, urinary sx, pain/discomfort anywhere (except her knees occasionally). Alexy Wright MD [address] [facility] [address], [place], [address], [facility] 10/05/2021 16:54:57 04/04/2022 text/html Medicare Annual Wellness VisitReported bypatient.Diet and Nutrition:healthy diet; discussed vitamin and supplement use; discussed maintaining calcium balance; discussed diet improvement Fracture Risk:no recent explained fracture; no sudden unexplained fractures; no previous musculoskeletal injuries;history of fractures(left forearm Fx at 3rd grade) Physical Activity:discussed weightbearing activities; discussed exercise habits Depression Risk:never feels sad, empty, or tearful; no loss of interest in activities; no significant changes in weight; no sleep disturbances or insomnia; no agitation; no loss of energy; no feelings of worthlessness or guilt; no thoughts of suicide; no history of depression; no history of mood disorders Orientation:no disorientation to time; no disorientation to date; no disorientation to place Concentration and Memory:no decreased concentrating ability; no memory lapses or loss; does not forget words Speech/Motor difficulties:no speech difficulties; no difficulty expressing formulated concepts; no difficulty with fine manipulative tasks; no difficulty writing/copying; no slowed reaction time; does not knock things over when trying to pick them up Hearing:no loss of hearing Vision:no vision problems Activities of Daily Living:able to bathe with limited or no assistance; able to contol urination and bowels; able to dress with limited or no assistance; able to feed self with limited or no assistance; able to get out of chair or bed with limited or no assistance; able to groom with limited or no assistance; able to toilet with limited or no assistance Instrumental Activities of Daily Living:able to do house work with limited or no assistance; able to grocery shop with limited or no assistance; able to manage medications with limited or no assistance; able to manage money with limited or no assistance; able to prepare meals with limited or no assistance; able to use the phone with limited or no assistance Falls Risk Assessment:no frequent falls while walking; no fall in the past year; no fall since last visit; no dizziness/vertigo Home Safety:no unsafe juventino hazzards; no unsafe stairs; no unsafe gas appliances; working smoke/CO detectors; use of seatbelts; no vision or hearing loss while driving; has hand bars in the bathroom/shower; good lighting in the home;fire arms Patient comes for HTN, HLD, GERD, Osteopenia, CLL, & weight monitoring. Pt also due for her annual Wellness Visit. Pt feels well and has no c/o.Pt denies any headache/chest discomfort or pain/diaphoresis/mariela thing problems/nausea/vomit ing/any angina equivalent symptoms/visual changes Alexy Wright MD [address] [facility] [address], [place], [address], [facility] 04/04/2022 12:30:04 10/06/2022 text/html Pt comes in for memory lapses and f/u on her HTN. She is still very depressed.Pt denies any headaches, visual sx, speech problems, focal muscle weakness, numbness /tingling, unsteady balance or gait, coordination problems, urinary symptoms, or bowel symptoms, tiredness or weakness. Alexy Wright MD [address], [place], [address], [facility] 10/06/2022 12:07:37 OBGyn Episode No OBEpisode recorded.
--- OUTSIDE RECORDS SUMMARY | 2024-11-18 15:24 | XMS_ITS | Clinical Summary ---
Author Organization [facility] Address [address] [place] [address] Care Team Providers Care Order Runner Name Role Phone Alexy Wright MD Primary Care Provider [phone] Allergies Active Allergy Reactions Criticality Noted Date Comments Codeine Rash Low 07/07/2019 Medications aspirin 81 MG chewable tablet Chew 81 mg by mouth daily. Active atorvastatin 20 MG tablet Take 20 mg by mouth nightly at bedtime. Active fluticasone propionate 50 MCG/ACT nasal spray 1 spray by Nasal route daily. Active lisinopril 40 MG tablet Take 40 mg by mouth daily. Active metoprolol succinate ER 25 MG 24 hr tablet Take 25 mg by mouth daily. Active pantoprazole EC 40 MG tablet Take 40 mg by mouth daily. Active sertraline 25 MG tablet Take 25 mg by mouth daily. Active traMADol 50 MG tablet Take 50 mg by mouth every 6 (six) hours as needed for Pain. Active albuterol sulfate HFA 108 (90 Base) MCG/ACT inhaler Inhale 2 puffs into the lungs every 6 (six) hours as needed for Wheezing. Active potassium chloride CR 10 MEQ tablet Take 10 mEq by mouth 2 (two) times daily. 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 Pulse 76 10/25/2022 12:35 PM FORKLIFT TECHNICIAN Temperature 37 C (98.6 F) 10/25/2022 11:58 AM FORKLIFT TECHNICIAN Respiratory Rate 16 10/25/2022 11:58 AM FORKLIFT TECHNICIAN Oxygen Saturation 98% 10/25/2022 11:58 AM FORKLIFT TECHNICIAN Inhaled Oxygen Concentration - - Weight 67.1 kg (148 lb) 07/07/2019 9:42 AM CDT Height 154.9 cm (5' 1 ) 07/07/2019 9:42 AM CDT Body Mass Index 27.96 07/07/2019 9:42 AM CDT Plan of Treatment Health Maintenance Due Date Last Done Comments Hepatitis C 1963 Annual Medicare Wellness Visit 2010 RSV Immunization or 60+ Years (1 - 1-dose 75+ series) 01/17/2020 COVID-19 Vaccine ( season) 2024 08/17/2021, 12/06/2020, 11/08/2020 Influenza Adult (#1) 2024 07/19/2022, 05/16/2019, 05/08/2018, Additional history exists DTaP, Tdap and Td Vaccines (2 - Td or Tdap) 05/08/2028 05/08/2018 Zoster Vaccines Completed 02/20/2019, 11/18/2018 Pneumococcal Vaccine: 65+ Years Completed 05/04/2020, 04/21/2018 Dexa Scan (General) Completed 04/04/2022, 09/09/2018, 09/09/2018, Additional history exists Meningococcal B Vaccine Aged Out No l onger eligible based on patient's age to complete this topic Meningococcal Vaccine Aged Out No kvng desmond eligible based on patient's age to complete this topic RSV Immunizations Under 20 Months Aged Out No longer eligible based on patient's age to complete this topic Procedures Procedure Name Priority Date/Time Associated Diagnosis Comments BONE DENSITY GENERIC (SCAN ORDER) Routine 09/09/2018 from Last 3 Months or Most Recently Relevant to Health Maintenance Results * BONE DENSITY (09/09/2018) Anatomical Region Laterality Modality Other us Documents Scanned SCANNING Final Result from Last 3 Months or Most Recently Relevant to Health Maintenance Insurance [facility] Care Teams Order Runner Relationship Specialty Start Date End Date Alexy Wright MD [address] [facility] [address] [place] [address] PCP - General INTERNAL MEDICINE 07/03/19
--- OUTSIDE RECORDS SUMMARY | 2024-11-18 15:24 | XMS_ITS | Encounter Summary ---
Author Organization [facility] Address [address] [place] [address] Care Team Providers Care Strategic Alliances Manager Name Role Phone Alexy Wright MD Primary Care Provider [phone] Encounter Details Date Type Department Care Team (Late st Contact Info) Description 06/28/2021 Therapy Plan [facility] [place] [address] Madisyn Cai, RN Social History Tobacco Use Types Packs/Day Years [...] Primary documented in this encounter Care Teams Strategic Alliances Manager Relationship Specialty Start Date End Date Alexy Wright MD [address] [place] [id number] PCP - General INTERNAL MEDICINE 07/03/19 documented as of this encounter
--- OUTSIDE RECORDS SUMMARY | 2024-11-18 15:25 | XMS_ITS | Clinical Summary ---
Author Organization [facility] Address [address], [facility] [address] [place] [address] Phone Care Team Providers Care Trade Specialist Name Role Phone Yusuf Stewart DO Unavailable [phone] Namita Mccarthy APRN, SEWING PATTERN LAYOUT TECHNICIAN Primary Care Provider + Allergies Active Allergy Reactions Criticality Noted Date Comments Codeine Rash,Vomiting Low 07/07/2019 Medications atorvastatin (LIPITOR) 20 MG Tablet atorvastatin 20 mg tablet 0 Active aspirin EC 81 MG Tablet Delayed Response aspirin 81 mg tablet,delayed release Take 1 tablet every day by oral route. Active acetaminophen (TYLENOL) 500 MG Tablet acetaminophen 500 mg tablet TAKE 2 TABLETS BY MOUTH TWICE A DAY NEEDED (MUST NOT CONSUME ALCOHOL) Active pantoprazole (PROTONIX) 40 MG Tablet Delayed Response pantoprazole 40 mg tablet,delayed release 0 Active lisinopril (PRINIVIL, ZESTRIL) 40 MG Tablet lisinopril 40 mg tablet TAKE 1 TABLET BY MOUTH EVERY DAY 0 Active zoledronic acid (RECLAST) 5 MG/100ML Solution Reclast 5 mg/100 mL intravenous piggyback 5 mg infusion over 15 min -- once a year Active metoprolol Succinate (TOPROL-XL) 50 MG TABLET SR 24 HR Take 50 mg by mouth daily. 2 Active amLODIPine (NORVASC) 5 MG Tablet amlodipine 5 mg tablet TAKE 1 TABLET BY MOUTH EVERY DAY Active sertraline (ZOLOFT) 50 MG Tablet sertraline 50 mg tablet TAKE 1 TABLET BY MOUTH EVERY DAY Active meclizine (ANTIVERT) 12.5 MG Tablet TAKE 1 TABLET BY MOUTH 4 TIMES A DAY NEEDED FOR VERTIGO 4 Active sertraline (ZOLOFT) 25 MG Tablet 25 MG ORALLY DAILY TAKE WITH SERTRALINE 50MG TAB TO EQUAL 75MG 3 Active ALPRAZolam (XANAX) 0.25 MG Tablet 0.25 MG ORALLY TWICE A DAY NEEDED FOR ANXIETY 3 Active Active Problems No known active problems Immunizations Immunization Administration Dates Next Due Influenza, High-dose, Quadrivalent 07/19/2022 Influenza, Injectable, Quadrivalent 07/19/2022 Influenza, Quadrivalent, Adjuvanted 06/21/2021 Influenza, high-dose, trivalent, PF 02/2019,05/08/2018,05/14/2017,2014 Pneumococcal Vaccine Adult - 23 Valent 05/04/2020 Family History Medical History Relation Name Comments Diabetes Mother Heart Disease Mother Cancer Sister Diabetes Sister Relation Name Status Comments Mother Sister Social History Tobacco Use Types Packs/Day Years Used Date Smoking Tobacco: Never Smokeless Tobacco: Never Tobacco Cessation:Counseling Given: Not Answered PHQ-2 Answer Date Recorded Total Score - Questions 1-9 1 04/2022 Comments Unknown Sex and Gender Information Value Date Recorded Sex Assigned at Not on file Legal Sex Female 2:38 PM [employer] Gender Identity Not on file Sexual Orientation Not on file Last Filed Vital Signs Vital Sign Reading Time Taken Comments Blood Pressure 134/68 05/20/2024 2:16 PM CDT Pulse 64 05/20/2024 2:16 PM CDT Temperature 36.6 C (97.8 F) 05/20/2024 2:16 PM CDT Respiratory Rate 18 05/20/2024 2:16 PM CDT Oxygen Saturation 97% 05/20/2024 2:16 PM CDT Inhaled Oxygen Concentration - - Weight 65.6 kg (144 lb 11.2 oz) 05/20/2024 2:16 PM CDT Height 157.5 cm (5' 2 ) 05/20/2024 2:16 PM CDT Body Mass Index 26.47 05/20/2024 2:16 PM CDT Plan of Treatment Health Maintenance Due Date Last Done Comments DEXA Bone Density 1945 Hepatitis C Virus (HCV) Screening 1945 Respiratory Syncytial Virus (RSV) Immunization (Adult) (1 - 1-dose 75+ series) 01/17/2020 Influenza Immunization (#1) 2024 11/0 05/2022, 07/19/2022, 06/21/2021, Additional history exists SARS-COV-2 Immunization ( season) 2024 08/17/2021, 12/06/2020, 11/08/2020 DTaP/Tdap/Td Immunization Discontinued 05/09/2018, TdaP Immunization Completed 05/09/2018, 05/08/2018 Zoster Immunization Completed 02/20/2019, 9 Pneumococcal Immunization (50+ years) Completed 05/04/2020, 04/22/2018, 04/21/2018 Hepatitis B Immunization Aged Out No longer eligible based on patient's age to complete this topic Meningococcal Immunization (ACWY) Aged Out No longer eligible based on patient's age to complete this topic Rotavirus Immunization Aged Out No lo nger eligible based on patient's age to complete this topic Insurance MEDICARE [facility] Advance Directives Documents on File Type Date Recorded 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
== END 2024-11-18 13:40 | disposition home or self-care (01) ==
LOC: ANHIMG 13:44
PROVIDERS: PCP Nurse Practitioner Family; Visit Provider Nurse Practitioner Family
DX: M17.0 Bilateral primary osteoarthritis of knee (principal)
CPT/HCPCS: 73564

== ENCOUNTER 2024-12-15 13:00 | Outpatient (CLI) | payer MEDICARE, SELFPAY ==
[2024-12-15 13:17] LABS: Basophils Absolute Auto 0.1 K/mm3 (0.0-0.1); Basophils Percent Auto 0.3 % (0.2-1.2); Eosinophils Absolute Auto 0.2 K/mm3 (0-0.3); Eosinophils Percent Auto 0.8 % (0-4.4); Hematocrit 39.8 % (37.0-47.0); Immature Granulocyte Absolute 0.08 K/mm3 (0.00-0.031); Immature Granulocyte Percent A 0.3 % (0-0.5); Lymphocytes Absolute Auto 14.74 K/mm3 (0.9-3.2); Mean Corpuscular HGB Conc 32.7 g/dl (32-36); Mean Corpuscular Hemoglobin 31.1 pg (26-34); Mean Corpuscular Volume 95.2 fl (80-100); Mean Platelet Volume 8.8 fl (7.4-10.4); Monocytes Absolute Auto 1.4 K/mm3 (0.1-0.6); Monocytes Percent Auto 6.1 % (2.6-8.5); Neutrophils Absolute Auto 6.9 K/mm3 (1.3-6.7); Neutrophils Percent Auto 29.5 % (45.5-73.1); Platelet Count Result 335 k/mm3 (150-375); Red Blood Count 4.18 M/mm3 (4.2-5.4); Red Cell Distribution Width 13.1 % (11.5-14.5); White Blood Count 23.4 K/mm3 (4.5-10.0)
[2024-12-15 13:19] LABS: Platelet Estimate Adequate (Adequate); Schistocytes None Seen
[2024-12-15 13:19] LABS: Blood Urea Nitrogen 8 mg/dL (8-26); Carbon Dioxide 28 mmol/L (22-30); Chloride 102 mmol/L (98-109); Estimated Glomerular Filt Rate 53; Glucose 104 mg/dL (70-105); Ionized Calcium (POC) 1.18 mmol/L (1.11-1.31); Potassium 3.7 mmol/L (3.5-4.9); Sodium 142 mmol/L (138-146)
[2024-12-15 13:20] LABS: Atypical Lymphocytes Present
[2024-12-15 14:01] LABS: Alanine Aminotransferase 29 U/L (6-35); Albumin Level 3.6 g/dL (3.5-5.1); Alkaline Phosphatase 85 U/L (38-126); Anion Gap 8 mmol/L (4-12); Aspartate Amino Transferase 29 U/L (14-36); Bilirubin,Total 0.7 mg/dL (0.2-1.3); Blood Urea Nitrogen 10 mg/dL (7-17); Calcium 8.8 mg/dL (8.4-10.2); Carbon Dioxide 29 mmol/L (22-30); Chloride 103 mmol/L (98-107); Estimated Glomerular Filt Rate > 60; Glucose 103 mg/dL (65-110); Lactate Dehydrogenase 174 U/L (120-246); Potassium 3.8 mmol/L (3.4-5.0); Sodium 140 mmol/L (137-145)
--- OUTSIDE RECORDS SUMMARY | 2024-12-15 14:46 | XMS_ITS | Data Portability ---
Author Organization [place] - [facility], [employer] Address [address] [address] Assessment Encounter Date Assessment Date Assessment LastModified [...] Lab CBC w/ auto diff 2022 023 [employer] [facility], [address] [facility] [address], [place], [address], 3 09:28:03 CMP, serum or plasma 2022 023 [employer] [facility], [address], [address], 3 09:28:03 TSH, serum or plasma 2022 023 [employer] [facility], [address] [facility] [address], [address], 3 09:28:03 T4, free, serum 2022 023 [employer] [facility], [address] [address], [address], 3 09:28:03 T3, free, serum or plasma 2022 023 [employer] [facility], [address] [facility] [address], [address], 3 09:28:03 vitamin B1 (thiamine), blood 2022 023 [employer] [facility], [address] [facility] [address], [address], 3 09:28:03 vitamin B6 (pyridoxine ), plasma 2022 023 [employer] [facility], [address] [facility] [address], [address], 3 09:28:03 vitamin B12, serum 2022 023 [employer] [facility], [address] [address], [place], [address], 3 09:28:04 folate, RBC 2022 023 [employer] [facility], [address] [address], [place], [address], 3 09:28:04 unlisted lab - RPR (DX) w/refl titer and confirm testing (refl) 2022 023 [employer] [facility], [address] [address], [place], [address], 3 09:28:04 lipid panel, serum 2021 022 [...] intact + calcium, serum or plasma 2021 [email or web address] Not available 08:31:26 phosphorus, serum or plasma 2021 [facility] Not available 15:12:35 vitamin D, 25-hydroxy, total, serum 2021 [facility] Not available 15:12:36 lipid panel, serum 2021 [facility] Not available 15:12:34 CMP, serum or plasma 2021 [facility] Not available 15:12:33 CBC w/ auto diff 2020 [employer] [facility], [address], [address], 08:04:14 microalbumi n/creatinin e, mass ratio, urine 2020 [employer] [facility], [address], [address], 08:04:13 PTH (parathyroi d hormone), intact + calcium, serum or plasma 2020 [employer] [facility], [address], [address], 08:04:14 phosphorus, serum or plasma 2020 [employer] [facility], [address] [address], [place], [address], 08:04:14 vitamin D, 25-hydroxy, total, serum 2020 021 [facility], [address] [address], [place], [address], 08:04:14 lipid panel, serum 2020 021 [facility], [address] [address], [place], [address], 08:04:13 CMP, serum or plasma 2020 021 [facility], [address] [address], [place], [address], 08:04:13 CK (creatine kinase), total, serum 2020 [facility], [address] [address], [place], [address], 08:04:13 lipid panel, serum 2020 021 [facility], [address], [address], 08:44:18 CMP, serum or plasma 2020 021 [facility], [address] [address], [place], [address], 08:44:18 CK (creatine kinase), total, serum 2020 021 [facility], [address] [address], [place], [address], 08:44:19 microalbumi n/creatinin e, mass ratio, urine 2020 [employer] [facility], [address] [address], [place], [address], 1 08:44:18 Referral neurologist referral 2022 023 guillaume Whiting MD, [address] [facility], [facility] [address], [place], [address], 4 09:31:50 hematologis t referral 2021 022 guillaume Stewart MD [facility], [address] [place] [address], [address], 2 11:52:21 hematologis t referral 2021 022 guillaume Stewart MD [facility], [address] [place] [address], [address], 2 08:11:09 Procedures None recorded. Surgeries None recorded. Imaging MRI, brain + brain stem, w/wo contrast 2022 023 guillaume [facility], [address] [place], [address], 3 09:27:55 bone density 2021 022 guillaume [facility], [address] Casey Juarez, [facility] [address], [place], [address], 2 08:40:06 Medication Orders amlodipine 5 mg tablet 2022 023 [facility]/Pharmacy #2510, [address] [place], [address], 3 12:04:22 sertraline 50 mg tablet 2022 023 [facility]/Pharmacy #2510, [address] [place], [address], 3 12:04:22 metoprolol succinate ER 50 mg tablet,exte nded release 24 hr 2021 022 [facility] [address] [place], [address], 2 12:29:12 lisinopril 40 mg tablet 2021 022 [facility] [address] [place], [address], 2 12:29:11 indapamide 1.25 mg tablet 2021 [address]22 [address] [place], [address], 2 12:19:10 indapamide 1.25 mg tablet 2020 021 [address], [address] [place] [address], [address], 2 12:19:10 Reclast 5 mg/100 mL intravenous piggyback 2020 021 [facility] -[id number] [facility], [address] [facility], [place], [address], 1 12:38:48 atorvastati n 20 mg tablet 2020 021 [facility] [address] [place], [address], 1 16:12:18 metoprolol succinate ER 25 mg tablet,exte nded release 24 hr 2020 021 [address] [place], [address], 3 11:40:50 lisinopril 40 mg tablet 2020 021 MAL[facility], [address] [place], [address], 16:12:17 indapamide 1.25 mg tablet [address]/Pharmacy #2510, [address] [place], [address], 12:19:10 sertraline 25 mg tablet [address]/Pharmacy #2510, [address] [place], [address], 13:21:28 Patient TargetsNo targets recorded. Patient Instructions Encounter Date Encounter Id Patient Instructions Last Modified By Organization Details Last Modified Time 11/24/2020 [id number] advance directiv e education [facility] Not available 11/24/2020 16:12:12 spirometry testing* MALIK Not available 11/24/2020 16:21:30 advised to lose weight [facility] Not available 11/24/2020 16:12:12 04/04/2022 [id number] medicare preventive services guide [facility] Not available 04/04/2022 12:29:08 advance care planning: care instructions [facility] Not available 04/04/2022 12:29:07 advised to lose weight [facility] Not available 04/04/2022 12:29:07 Discussed and explained advance directives such as standard forms to the {{patient caregiv er patient and caregiver}}. Face to face discussion lasted for a duration of ___ minutes. [facility] Not available 04/04/2022 12:04:50 Reason for Referral [...] carmel metry testi ng* Spirometry Not Available [facility] [employer], [facility] [address], [place], [address], 11/24/2020 15:53:28 12/29/19 21 12/29/2020 lipid panel , serum cholesterol, total 150 mg/dL <200 normal Not Available [address], [address], 12/29/2020 12:38:49 12/29/19 21 12/29/2020 lipid panel , serum HDL cholesterol 52 mg/dL > or = 50 normal Not Available [facility] [address] [address] [place], [address], 12/29/2020 12:38:49 12/29/19 21 12/29/2020 lipid panel , serum triglyceride s 238 mg/dL <150 high If a non-f astin g speci men was colle cted, consi elisabeth repea t trigl yceri de testi ng on a fasti ng speci men if clini brook indic ated. Tesfaye krishnamurthy et al. J. of Clin. Lipid ol. 2015; 9:129 -169. Not Available [address] [place], [address], 12/29/2020 12:38:49 12/29/19 21 12/29/2020 lipid panel [...] 2061- 206 (http ://ed ucati on.Xochitl peck Aer[employer]ss. com/f aq/FA Q164) Not Available [address], [address], 12/29/2020 12:38:49 12/29/19 21 12/29/2020 lipid panel , serum chol/HDLC ratio 2.9 (calc ) <5.0 normal Not Available [address] [address] [facility] [place], [address], 12/29/2020 12:38:49 12/29/1912/29/2020 lipid panel , serum non HDL cholesterol 98 mg/dL _(marcie c) <130 normal For patie nts with diabe yessica plus 1 major ASCVD risk facto r, treat ing to a non-H DL-C goal of <100 mg/dL (LDL- C of <70 mg/dL ) is consi tavo a lo alejandro c optio n. Not Available [address] [address] [facility] , [place], [address], 12/29/2020 12:38:49 12/29/19 21 12/29/2020 micro album in/cr eatin ine, mass ratio , urine creatinine, random urine 63 mg/dL 20-275 normal Not Available [address] [address] [place], [address], 12/29/2020 12:38:49 12/29/19 21 12/29/2020 micro album in/cr eatin ine, mass ratio , urine albumin, urine 0.7 mg/dL see note: normal Refer ence Range : Refer ence Range Not estab lishe d Not Available [address], [address], 12/29/2020 12:38:49 12/29/19 21 12/29/2020 micro album [...] a diagn ostic categ ory. Not Available [address] [place], [address], 12/29/2020 12:38:49 12/29/19 21 12/29/2020 CMP, serum or plasm a glucose 96 mg/dL 65-99 normal Fasti ng refer ence inter frances Not Available [address], [address], 12/29/2020 12:38:49 12/29/1912/29/2020 CMP, serum or plasm a urea nitrogen (BUN) 11 mg/dL 7-25 normal Not Available [facility] [address], [address], 12/29/2020 12:38:49 12/29/19 21 12/29/2020 CMP, serum or plasm a creatinine 0.93 mg/dL 0.60-0 .93 normal For patie nts >49 years of age, the refer ence limit for Creat inine is appro ximat uziel 13% highe r for peopl e ident ified as Afric an-Am marai g n. Not Available [facility] [address], [address], 12/29/2020 12:38:49 12/29/19 21 12/29/2020 CMP, serum or plasm a eGFR non-afr. jordanian 60 mL/mi n/1.7 3m2 > or = 60 normal Not Available [facility] [address], [address], 12/29/2020 12:38:49 12/29/1912/29/2020 CMP, serum or plasm a eGFR 70 mL/mi n/1.7 3m2 > or = 60 normal Not Available [address], [address], 12/29/2020 12:38:49 12/29/1912/29/2020 CMP, serum or plasm a BUN/creatini ne ratio NOT APPLIC ABLE (calc ) 6-22 Not Available [address], [address], 12/29/2020 12:38:49 12/29/19 21 12/29/2020 CMP, serum or plasm a sodium 144 mmol/ L 135-14 6 normal Not Available [address], [address], 12/29/2020 12:38:49 12/29/19 21 12/29/2020 CMP, serum or plasm a potassium 3.2 mmol/ L 3.5-5. 3 low Not Available [address], [address], 12/29/2020 12:38:49 12/29/1912/29/2020 CMP, serum or plasm a chloride 103 mmol/ L 98-110 normal Not Available [address], [address], 12/29/2020 12:38:49 12/29/1912/29/2020 CMP, serum or plasm a carbon dioxide 28 mmol/ L 20-32 normal Not Available [address], [address], 12/29/2020 12:38:49 12/29/19 21 12/29/2020 CMP, serum or plasm a calcium 9.5 mg/dL 8.6-10 .4 normal Not Available [address], [address], 12/29/2020 12:38:49 12/29/1912/29/2020 CMP, serum or plasm a protein, total 6.5 g/dL 6.1-8. 1 normal Not Available [address], [address], 12/29/2020 12:38:49 12/29/1912/29/2020 CMP, serum or plasm a albumin 4.1 g/dL 3.6-5. 1 normal Not Available [address], [address], 12/29/2020 12:38:49 12/29/1912/29/2020 CMP, serum or plasm a globulin 2.4 g/dL_ (calc ) 1.9-3. 7 normal Not Available [address], [address], 12/29/2020 12:38:49 12/29/1912/29/2020 CMP, serum or plasm a albumin/glob ulin ratio 1.7 (calc ) 1.0-2. 5 normal Not Available [address], [address], 12/29/2020 12:38:49 12/29/1912/29/2020 CMP, serum or plasm a bilirubin, total 1.0 mg/dL 0.2-1. 2 normal Not Available [address], [address], 12/29/2020 12:38:49 12/29/1912/29/2020 CMP, serum or plasm a alkaline phosphatase 51 U/L 37-153 normal Not Available [facility] [address], [address], 12/29/2020 12:38:49 12/29/1929 1212/29/2020 CMP, serum or plasm a AST 25 U/L 10-35 normal Not Available [address], [address], 12/29/2020 12:38:49 12/29/19 21 12/29/2020 CMP, serum or plasm a ALT 29 U/L 6-29 normal Not Available [address], [address], 12/29/2020 12:38:49 12/29/19 21 12/29/2020 CK (crea valentín kinas e), total , serum creatine kinase, total 63 U/L 29-143 normal Not Available [address], [address], 12/29/2020 12:38:50 06/21/2006/22/2021 LIPID PANEL , STAND CICI cholesterol, total 174 mg/dL <200 normal Not Available [address], [address], 06/22/2021 15:55:09 06/21/2006/22/2021 LIPID PANEL , STAND CICI HDL cholesterol 50 mg/dL > or = 50 normal Not Available [address], [address], 06/22/2021 15:55:09 06/21/2006/22/2021 LIPID PANEL , STAND CICI triglyceride s 221 mg/dL <150 high If a non-f astin g speci men was colle cted, consi elisabeth repea t trigl yceri de testi ng on a fasti ng speci men if clini brook indic ated. Tesfaye krishnamurthy et al. J. of Clin. Lipid ol. 2015; 9:129 -169. Not Available [address], [address], 06/22/2021 15:55:09 06/21/2006/22/2021 LIPID PANEL , STAND [...] 310(1 5): 2061- 2068 (http ://ed ucati on.icix rebeccaVenaxis. com/f aq/FA Q164) Not Available [address] [address] [place], [address], 06/22/2021 15:55:09 06/21/2006/22/2021 LIPID PANEL , STAND CICI chol/HDLC ratio 3.5 (calc ) <5.0 normal Not Available [address], [address], 06/22/2021 15:55:09 06/21/2006/22/2021 LIPID PANEL , STAND CICI non HDL cholesterol 124 mg/dL _(marcie c) <130 normal For patie nts with diabe yessica plus 1 major ASCVD risk facto r, treat ing to a non-H DL-C goal of <100 mg/dL (LDL- C of <70 mg/dL ) is consi dered a thera peuti c optio n. Not Available [address] [address] [place], [address], 06/22/2021 15:55:09 06/21/2006/22/2021 ALBUM IN, RANDO M URINE W/CRE ATINI NE creatinine, random urine 149 mg/dL 20-275 normal Not Available [facility] [address] [place], [address], 06/22/2021 15:55:09 06/21/2006/22/2021 ALBUM IN, RANDO M URINE W/CRE ATINI NE albumin, urine 1.5 mg/dL see note: normal Refer ence Range : Refer ence Range Not estab lishe d Not Available [address] [address] [place], [address], 06/22/2021 15:55:09 06/21/20 21 06/22/2021 ALBUM IN, [...] a diagn ostic categ ory. Not Available [facility] [address] [facility] [place], [address], 06/22/2021 15:55:09 06/21/2006/22/2021 PTH, INTAC T AND [...] or Low Naty l High Not Available [address], [address], 06/22/2021 15:55:10 06/21/2006/22/2021 PTH, INTAC T AND CALCI UM calcium 9.4 mg/dL 8.6-10 .4 normal Not Available [address], [address], 06/22/2021 15:55:10 06/21/2006/22/2021 PHOSP HATE ( PHOSP HORUS ) phosphate ( phosphorus) 3.7 mg/dL 2.1-4. 3 normal Not Available [address], [address], 06/22/2021 15:55:10 06/21/20 21 06/22/2021 COMPR EHENS RYAN METAB OLIC PANEL glucose 96 mg/dL 65-99 normal Fasti ng refer ence inter frances Not Available [address], [address], 06/22/2021 15:55:11 06/21/2006/22/2021 COMPR EHENS RYAN METAB OLIC PANEL urea nitrogen (BUN) 12 mg/dL 7-25 normal Not Available [address], [address], 06/22/2021 15:55:11 06/21/2006/22/2021 COMPR EHENS RYAN METAB OLIC PANEL creatinine 1.01 mg/dL 0.60-0 .93 high For patie nts >49 years of age, the refer ence limit for Creat inine is appro ximat uziel 13% highe r for peopl e ident ified as Afric an-Am maria g n. Not Available [address], [address], 06/22/2021 15:55:11 06/21/20 21 06/22/2021 COMPR EHENS RYAN METAB OLIC PANEL eGFR non-afr. jordanian 54 mL/mi n/1.7 3m2 > or = 60 low Not Available [address], [address], 06/22/2021 15:55:11 06/21/20 21 06/22/2021 COMPR EHENS RYAN METAB OLIC PANEL eGFR 63 mL/mi n/1.7 3m2 > or = 60 normal Not Available [address], [address], 06/22/2021 15:55:11 06/21/20 21 06/22/2021 COMPR EHENS RYAN METAB OLIC PANEL BUN/creatini ne ratio 12 (calc ) 6-22 normal Not Available [address], [address], 06/22/2021 15:55:11 06/21/20 21 06/22/2021 COMPR EHENS RYAN METAB OLIC PANEL sodium 142 mmol/ L 135-14 6 normal Not Available [address], [address], 06/22/2021 15:55:11 06/21/20 21 06/22/2021 COMPR EHENS RYAN METAB OLIC PANEL potassium 3.5 mmol/ L 3.5-5. 3 normal Not Available [address], [address], 06/22/2021 15:55:11 06/21/20 21 06/22/2021 COMPR EHENS RYAN METAB OLIC PANEL chloride 103 mmol/ L 98-110 normal Not Available [address], [address], 06/22/2021 15:55:11 06/21/20 21 06/22/2021 COMPR EHENS RYAN METAB OLIC PANEL carbon dioxide 31 mmol/ L 20-32 normal Not Available [address], [address], 06/22/2021 15:55:11 06/21/2006/22/2021 COMPR EHENS RYAN METAB OLIC PANEL calcium 9.4 mg/dL 8.6-10 .4 normal Not Available [address], [address], 06/22/2021 15:55:11 06/21/2006/22/2021 COMPR EHENS RYAN METAB OLIC PANEL protein, total 6.7 g/dL 6.1-8. 1 normal Not Available [address], [address], 06/22/2021 15:55:11 06/21/2006/22/2021 COMPR EHENS RYAN METAB OLIC PANEL albumin 4.2 g/dL 3.6-5. 1 normal Not Available [address], [address], 06/22/2021 15:55:11 06/21/20 21 06/22/2021 COMPR EHENS RYAN METAB OLIC PANEL globulin 2.5 g/dL_ (calc ) 1.9-3. 7 normal Not Available [address], [address], 06/22/2021 15:55:11 06/21/2006/22/2021 COMPR EHENS RYAN METAB OLIC PANEL albumin/glob ulin ratio 1.7 (calc ) 1.0-2. 5 normal Not Available [address], [address], 06/22/2021 15:55:11 06/21/20 21 06/22/2021 COMPR EHENS RYAN METAB OLIC PANEL bilirubin, total 1.0 mg/dL 0.2-1. 2 normal Not Available [address], [address], 06/22/2021 15:55:11 06/21/2006/22/2021 COMPR EHENS RYAN METAB OLIC PANEL alkaline phosphatase 56 U/L 37-153 normal Not Available [facility] [address], [address], 06/22/2021 15:55:11 06/21/20 21 06/22/2021 COMPR EHENS RYAN METAB OLIC PANEL AST 31 U/L 10-35 normal Not Available [address], [address], 06/22/2021 15:55:11 06/21/2006/22/2021 COMPR EHENS RYAN METAB OLIC PANEL ALT 36 U/L 6-29 high Not Available [address], [address], 06/22/2021 15:55:11 06/21/2006/22/2021 CREAT INE KINAS E, TOTAL creatine kinase, total 72 U/L 29-143 normal Not Available [address], [address], 06/22/2021 15:55:12 06/21/20 21 06/22/2021 CBC (INCL UDES DIFF/ PLT) white blood cell count 12.9 thous and/u L 3.8-10 .8 high Not Available [address], [address], 06/22/2021 15:55:12 06/21/2006/22/2021 CBC (INCL UDES DIFF/ PLT) red blood cell count 4.80 pepe on/uL 3.80-5 .10 normal Not Available [address], [address], 06/22/2021 15:55:12 06/21/20 21 06/22/2021 CBC (INCL UDES DIFF/ PLT) hemoglobin 15.1 g/dL 11.7-1 5.5 normal Not Available [address], [address], 06/22/2021 15:55:12 06/21/2006/22/2021 CBC (INCL UDES DIFF/ PLT) hematocrit 45.3 % 35.0-4 5.0 high Not Available [address], [address], 06/22/2021 15:55:12 06/21/2006/22/2021 CBC (INCL UDES DIFF/ PLT) MCV 94.4 fL 80.0-1 00.0 normal Not Available [address], [address], 06/22/2021 15:55:12 06/21/2006/22/2021 CBC (INCL UDES DIFF/ PLT) MCH 31.5 pg 27.0-3 3.0 normal Not Available [address], [address], 06/22/2021 15:55:12 06/21/2006/22/2021 CBC (INCL UDES DIFF/ PLT) MCHC 33.3 g/dL 32.0-3 6.0 normal Not Available [address], [address], 06/22/2021 15:55:12 06/21/2006/22/2021 CBC (INCL UDES DIFF/ PLT) RDW 13.0 % 11.0-1 5.0 normal Not Available [address], [address], 06/22/2021 15:55:12 06/21/2006/22/2021 CBC (INCL UDES DIFF/ PLT) platelet count 202 thous and/u L 140-40 0 normal Not Available [address], [address], 06/22/2021 15:55:12 06/21/2006/22/2021 CBC (INCL UDES DIFF/ PLT) MPV 10.8 fL 7.5-12 .5 normal Not Available [address], [address], 06/22/2021 15:55:12 06/21/2006/22/2021 CBC (INCL UDES DIFF/ PLT) absolute neutrophils 3006 cells /uL 1500-7 800 normal Not Available [address], [address], 06/22/2021 15:55:12 06/21/2006/22/2021 CBC (INCL UDES DIFF/ PLT) absolute lymphocytes 8708 cells /uL 850-39 00 high Not Available [address], [address], 06/22/2021 15:55:12 06/21/2006/22/2021 CBC (INCL UDES DIFF/ PLT) absolute monocytes 568 cells /uL 200-95 0 normal Not Available [address], [address], 06/22/2021 15:55:12 06/21/2006/22/2021 CBC (INCL UDES DIFF/ PLT) absolute eosinophils 555 cells /uL 15-500 high Not Available [address], [address], 06/22/2021 15:55:12 06/21/2006/22/2021 CBC (INCL UDES DIFF/ PLT) absolute basophils 65 cells /uL 0-200 normal Not Available [address], [address], 06/22/2021 15:55:12 06/21/20 21 06/22/2021 CBC (INCL UDES DIFF/ PLT) neutrophils 23.3 % normal Not Available [address], [address], 06/22/2021 15:55:12 06/21/2006/22/2021 CBC (INCL UDES DIFF/ PLT) lymphocytes 67.5 % normal Not Available [address], [address], 06/22/2021 15:55:12 06/21/2006/22/2021 CBC (INCL UDES DIFF/ PLT) monocytes 4.4 % normal Not Available [facility] [address], [address], 06/22/2021 15:55:12 06/21/2006/22/2021 CBC (INCL UDES DIFF/ PLT) eosinophils 4.3 % normal Not Available [facility] [address], [address], 06/22/2021 15:55:12 06/21/2006/22/2021 CBC (INCL UDES DIFF/ PLT) basophils 0.5 % normal Not Available [address], [address], 06/22/2021 15:55:12 06/21/2006/22/2021 CBC (INCL UDES DIFF/ PLT) comment(s) Revie w of perip heral smear confi jason autom ated resul ts. Few atypi marcie lymph ocyte s noted Not Available [address], [address], 06/22/2021 15:55:12 06/21/2006/22/2021 VITAM IN D,25- [place],TO [...] /MS is recom alisha d: order code 08724 (lukasz ents >2yrs ). See Note 1 Note 1 For addit ional infor milton rodriguez refer to http: //[facility] juan josé Shafferia gnost ics.c om/fa q/FAQ 199 (This link is being provi ded for infor eli you/ educa william barrett purpo ses only. ) Not Available [facility] [address], [address], 06/22/2021 15:55:13 07/18/20 21 07/19/2021 CBC (INCL UDES DIFF/ PLT) white blood cell count 15.7 thous and/u L 3.8-10 .8 high Not Available [facility] [address], [address], 07/19/2021 02:24:19 07/18/20 21 07/19/2021 CBC (INCL UDES DIFF/ PLT) red blood cell count 5.01 pepe on/uL 3.80-5 .10 normal Not Available [facility] [address], [address], 07/19/2021 02:24:19 07/18/20 21 07/19/2021 CBC (INCL UDES DIFF/ PLT) hemoglobin 15.8 g/dL 11.7-1 5.5 high Not Available [facility] [address], [address], 07/19/2021 02:24:19 07/18/20 21 07/19/2021 CBC (INCL UDES DIFF/ PLT) hematocrit 48.1 % 35.0-4 5.0 high Not Available [facility] [address], [address], 07/19/2021 02:24:19 07/18/20 21 07/19/2021 CBC (INCL UDES DIFF/ PLT) MCV 96.0 fL 80.0-1 00.0 normal Not Available [address], [address], 07/19/2021 02:24:19 07/18/20 21 07/19/2021 CBC (INCL UDES DIFF/ PLT) MCH 31.5 pg 27.0-3 3.0 normal Not Available [address], [address], 07/19/2021 02:24:19 07/18/2007/19/2021 CBC (INCL UDES DIFF/ PLT) MCHC 32.8 g/dL 32.0-3 6.0 normal Not Available [address], [address], 07/19/2021 02:24:19 07/18/2007/19/2021 CBC (INCL UDES DIFF/ PLT) RDW 13.0 % 11.0-1 5.0 normal Not Available [address], [address], 07/19/2021 02:24:19 07/18/2007/19/2021 CBC (INCL UDES DIFF/ PLT) platelet count 231 thous and/u L 140-40 0 normal Not Available [address], [address], 07/19/2021 02:24:19 07/18/2007/19/2021 CBC (INCL UDES DIFF/ PLT) MPV 10.7 fL 7.5-12 .5 normal Not Available [address], [address], 07/19/2021 02:24:19 07/18/20 21 07/19/2021 CBC (INCL UDES DIFF/ PLT) absolute neutrophils 4726 cells /uL 1500-7 800 normal Not Available [address], [address], 07/19/2021 02:24:19 07/18/20 21 07/19/2021 CBC (INCL UDES DIFF/ PLT) absolute lymphocytes 9687 cells /uL 850-39 00 high Not Available [address], [address], 07/19/2021 02:24:19 07/18/20 21 07/19/2021 CBC (INCL UDES DIFF/ PLT) absolute monocytes 675 cells /uL 200-95 0 normal Not Available [address], [address], 07/19/2021 02:24:19 07/18/20 21 07/19/2021 CBC (INCL UDES DIFF/ PLT) absolute eosinophils 518 cells /uL 15-500 high Not Available [address], [address], 07/19/2021 02:24:19 07/18/20 21 07/19/2021 CBC (INCL UDES DIFF/ PLT) absolute basophils 94 cells /uL 0-200 normal Not Available [address], [address], 07/19/2021 02:24:19 07/18/20 21 07/19/2021 CBC (INCL UDES DIFF/ PLT) neutrophils 30.1 % normal Not Available [address], [address], 07/19/2021 02:24:19 07/18/20 21 07/19/2021 CBC (INCL UDES DIFF/ PLT) lymphocytes 61.7 % normal Not Available [address], [address], 07/19/2021 02:24:19 07/18/20 21 07/19/2021 CBC (INCL UDES DIFF/ PLT) monocytes 4.3 % normal Not Available [address], [address], 07/19/2021 02:24:19 07/18/20 21 07/19/2021 CBC (INCL UDES DIFF/ PLT) eosinophils 3.3 % normal Not Available [address], [address], 07/19/2021 02:24:19 07/18/2007/19/2021 CBC (INCL UDES DIFF/ PLT) basophils 0.6 % normal Not Available [address], [address], 07/19/2021 02:24:19 08/01/2008/02/2021 URINA LYSIS , COMPL ETE W/REF FARA TO CULTU RE color YELLOW yellow normal Not Available [address], [address], 08/02/2021 04:17:43 08/01/2008/02/2021 URINA LYSIS , COMPL ETE W/REF FARA TO CULTU RE appearance CLEAR clear normal Not Available [address], [address], 08/02/2021 04:17:43 08/01/2008/02/2021 URINA LYSIS , COMPL ETE W/REF FARA TO CULTU RE specific gravity 1.013 1.001- 1.035 normal Not Available [address], [address], 08/02/2021 04:17:43 08/01/2008/02/2021 URINA LYSIS , COMPL ETE W/REF FARA TO CULTU RE pH 7.0 5.0-8. 0 normal Not Available [address], [address], 08/02/2021 04:17:43 08/01/20 21 08/02/2021 URINA LYSIS , COMPL ETE W/REF FARA TO CULTU RE glucose NEGATI VE negati ve normal Not Available [address], [address], 08/02/2021 04:17:43 08/01/20 21 08/02/2021 URINA LYSIS , COMPL ETE W/REF FARA TO CULTU RE bilirubin NEGATI VE negati ve normal Not Available [address], [address], 08/02/2021 04:17:43 08/01/20 21 08/02/2021 URINA LYSIS , COMPL ETE W/REF FARA TO CULTU RE ketones NEGATI VE negati ve normal Not Available [address], [address], 08/02/2021 04:17:43 08/01/20 21 08/02/2021 URINA LYSIS , COMPL ETE W/REF FARA TO CULTU RE occult blood NEGATI VE negati ve normal Not Available [address], [address], 08/02/2021 04:17:43 08/01/20 21 08/02/2021 URINA LYSIS , COMPL ETE W/REF FARA TO CULTU RE protein NEGATI VE negati ve normal Not Available [address], [address], 08/02/2021 04:17:43 08/01/20 21 08/02/2021 URINA LYSIS , COMPL ETE W/REF FARA TO CULTU RE nitrite NEGATI VE negati ve normal Not Available [address], [address], 08/02/2021 04:17:43 08/01/20 21 08/02/2021 URINA LYSIS , COMPL ETE W/REF FARA TO CULTU RE leukocyte esterase NEGATI VE negati ve normal Not Available [address] [address] [place], [address], 08/02/2021 04:17:43 08/01/20 21 08/02/2021 URINA LYSIS , COMPL ETE W/REF FARA TO CULTU RE WBC NONE SEEN /hpf < or = 5 normal Not Available [address] [address] [place], [address], 08/02/2021 04:17:43 08/01/20 21 08/02/2021 URINA LYSIS , COMPL ETE W/REF FARA TO CULTU RE RBC NONE SEEN /hpf < or = 2 normal Not Available [address], [address], 08/02/2021 04:17:43 08/01/20 21 08/02/2021 URINA LYSIS , COMPL ETE W/REF FARA TO CULTU RE squamous epithelial cells NONE SEEN /hpf < or = 5 normal Not Available [address] [address] [place], [address], 08/02/2021 04:17:43 08/01/20 21 08/02/2021 URINA LYSIS , COMPL ETE W/REF FARA TO CULTU RE bacteria NONE SEEN /hpf none seen normal Not Available [address], [address], 08/02/2021 04:17:43 08/01/20 21 08/02/2021 URINA LYSIS , COMPL ETE W/REF FARA TO CULTU RE hyaline cast NONE SEEN /lpf none seen normal Not Available [address], [address], 08/02/2021 04:17:43 08/01/20 21 08/02/2021 REFLE XIVE URINE CULTU RE reflexive urine culture NO CULTU RE INDIC ATED Not Available [address] [place], [address], 08/02/2021 04:17:45 09/16/19 22 09/17/2021 CBC (INCL UDES DIFF/ PLT) white blood cell count 14.7 thous and/u L 3.8-10 .8 high Not Available [address], [address], 09/17/2021 05:47:19 09/16/19 22 09/17/2021 CBC (INCL UDES DIFF/ PLT) red blood cell count 4.99 pepe on/uL 3.80-5 .10 normal Not Available [address], [address], 09/17/2021 05:47:19 09/16/19 22 09/17/2021 CBC (INCL UDES DIFF/ PLT) hemoglobin 15.3 g/dL 11.7-1 5.5 normal Not Available [address], [address], 09/17/2021 05:47:19 09/16/19 22 09/17/2021 CBC (INCL UDES DIFF/ PLT) hematocrit 46.4 % 35.0-4 5.0 high Not Available [address], [address], 09/17/2021 05:47:19 09/16/1909/17/2021 CBC (INCL UDES DIFF/ PLT) MCV 93.0 fL 80.0-1 00.0 normal Not Available [address], [address], 09/17/2021 05:47:19 09/16/1909/17/2021 CBC (INCL UDES DIFF/ PLT) MCH 30.7 pg 27.0-3 3.0 normal Not Available [address], [address], 09/17/2021 05:47:19 09/16/19 22 09/17/2021 CBC (INCL UDES DIFF/ PLT) MCHC 33.0 g/dL 32.0-3 6.0 normal Not Available [address], [address], 09/17/2021 05:47:19 09/16/19 22 09/17/2021 CBC (INCL UDES DIFF/ PLT) RDW 12.4 % 11.0-1 5.0 normal Not Available [address], [address], 09/17/2021 05:47:19 09/16/19 22 09/17/2021 CBC (INCL UDES DIFF/ PLT) platelet count 198 thous and/u L 140-40 0 normal Not Available [address], [address], 09/17/2021 05:47:19 09/16/19 22 09/17/2021 CBC (INCL UDES DIFF/ PLT) MPV 11.2 fL 7.5-12 .5 normal Not Available [address], [address], 09/17/2021 05:47:19 09/16/19 22 09/17/2021 CBC (INCL UDES DIFF/ PLT) absolute neutrophils 4013 cells /uL 1500-7 800 normal Not Available [address], [address], 09/17/2021 05:47:19 09/16/19 22 09/17/2021 CBC (INCL UDES DIFF/ PLT) absolute lymphocytes 9570 cells /uL 850-39 00 high Not Available [address], [address], 09/17/2021 05:47:19 09/16/19 22 09/17/2021 CBC (INCL UDES DIFF/ PLT) absolute monocytes 515 cells /uL 200-95 0 normal Not Available [facility] [address], [address], 09/17/2021 05:47:19 09/16/19 22 09/17/2021 CBC (INCL UDES DIFF/ PLT) absolute eosinophils 515 cells /uL 15-500 high Not Available [address], [address], 09/17/2021 05:47:19 09/16/19 22 09/17/2021 CBC (INCL UDES DIFF/ PLT) absolute basophils 88 cells /uL 0-200 normal Not Available [facility] [address], [address], 09/17/2021 05:47:19 09/16/19 22 09/17/2021 CBC (INCL UDES DIFF/ PLT) neutrophils 27.3 % normal Not Available [facility] [address], [address], 09/17/2021 05:47:19 09/16/19 22 09/17/2021 CBC (INCL UDES DIFF/ PLT) lymphocytes 65.1 % normal Not Available [facility] [address], [address], 09/17/2021 05:47:19 09/16/1909/17/2021 CBC (INCL UDES DIFF/ PLT) monocytes 3.5 % normal Not Available [facility] [address], [address], 09/17/2021 05:47:19 09/16/1909/17/2021 CBC (INCL UDES DIFF/ PLT) eosinophils 3.5 % normal Not Available [facility] [address], [address], 09/17/2021 05:47:19 09/16/1909/17/2021 CBC (INCL UDES DIFF/ PLT) basophils 0.6 % normal Not Available [facility] [address], [address], 09/17/2021 05:47:19 10/05/19 22 10/05/2021 COMPL ETE CBC W/AUT O DIFF WBC white blood cell count 14.2 thous and/u L 3.5-10 .0 high Not Available [address] [address] [place], [address], 10/06/2021 15:12:32 10/05/19 22 10/05/2021 COMPL ETE CBC W/AUT O DIFF WBC red blood cell count 5.0 pepe on/uL 3.5-5. 5 Not Available [address] [address] [place], [address], 10/06/2021 15:12:32 10/05/19 22 10/05/2021 COMPL ETE CBC W/AUT O DIFF WBC hemoglobin 15.6 g/dL 11.5-1 6.5 Not Available [address] [address] [place], [address], 10/06/2021 15:12:32 10/05/19 22 10/05/2021 COMPL ETE CBC W/AUT O DIFF WBC hematocrit 48 % 35-55 Not Available [address] [address] [place], [address], 10/06/2021 15:12:32 10/05/19 22 10/05/2021 COMPL ETE CBC W/AUT O DIFF WBC MCH 31 pg 25-35 Not Available [address] [address] [place], [address], 10/06/2021 15:12:32 10/05/19 22 10/05/2021 COMPL ETE CBC W/AUT O DIFF WBC MCHC 33 g/dL 31-38 Not Available [address] [address] [place], [address], 10/06/2021 15:12:32 10/05/19 22 10/05/2021 COMPL ETE CBC W/AUT O DIFF WBC MCV 96 fL 75-100 Not Available [address] [address] [place], [address], 10/06/2021 15:12:32 10/05/19 22 10/05/2021 COMPL ETE CBC W/AUT O DIFF WBC RDW-CV 13 % 11-15 Not Available [address] [address] [place], [address], 10/06/2021 15:12:32 10/05/19 22 10/05/2021 COMPL ETE CBC W/AUT O DIFF WBC neutrophils% 31.5 % Not Available [address] [address] [place], [address], 10/06/2021 15:12:32 10/05/19 22 10/05/2021 COMPL ETE CBC W/AUT O DIFF WBC lymphocytes% 59.5 % Not Available [address] [address] [place], [address], 10/06/2021 15:12:32 10/05/19 22 10/05/2021 COMPL ETE CBC W/AUT O DIFF WBC monocytes% 5.4 % Not Available [address] [address] [place], [address], 10/06/2021 15:12:32 10/05/19 22 10/05/2021 COMPL ETE CBC W/AUT O DIFF WBC eosinophil % 2.6 % 0.0-7. 0 Not Available [address] [address] [place], [address], 10/06/2021 15:12:32 10/05/19 22 10/05/2021 COMPL ETE CBC W/AUT O DIFF WBC basophil % 0.7 % 0.0-3. 0 Not Available [address] [address] [address] [place], [address], 10/06/2021 15:12:32 10/05/19 22 10/05/2021 COMPL ETE CBC W/AUT O DIFF WBC absolute neutrophils 4.5 cells /uL 1.5-7. 8 Not Available [address] [address] [place], [address], 10/06/2021 15:12:32 10/05/19 22 10/05/2021 COMPL ETE CBC W/AUT O DIFF WBC absolute lymphocytes 8.44 cells /uL 0.85-3 .90 high Not Available [address] [address] [place], [address], 10/06/2021 15:12:32 10/05/19 22 10/05/2021 COMPL ETE CBC W/AUT O DIFF WBC absolute monocytes 0.8 cells /uL 0.2-1. 0 Not Available [address] [address] [place], [address], 10/06/2021 15:12:32 10/05/19 22 10/05/2021 COMPL ETE CBC W/AUT O DIFF WBC absolute eosinophils 0.4 cells /uL 0.0-0. 5 Not Available [address] [address] [place], [address], 10/06/2021 15:12:32 10/05/19 22 10/05/2021 COMPL ETE CBC W/AUT O DIFF WBC absolute basophils 0.1 cells /uL 0.0-0. 2 Not Available [address] [address] [place], [address], 10/06/2021 15:12:32 10/05/19 22 10/05/2021 COMPL ETE CBC W/AUT O DIFF WBC platelet count 220 thous and/u L 100-40 0 Testi barb Ponce rmed at: [facility] KERRI LANDERSI VIN, [address], [address] [place] [address] Phone : [phone] Fax: Not Available [address] [address] [place], [address], 10/06/2021 15:12:32 10/05/19 22 10/05/2021 CMP (COMP REHEN SIVE METAB OLIC PANEL ) glucose 91 mg/dL 74-99 Not Available [facility] [address] [place] [address] [place], [address], 10/06/2021 15:12:33 10/05/19 22 10/05/2021 CMP (COMP REHEN SIVE METAB OLIC PANEL ) urea nitrogen, blood (BUN) 10 mg/dL 8-23 Not Available [facility] [address] [place] [address] [place], [address], 10/06/2021 15:12:33 10/05/19 22 10/05/2021 CMP (COMP REHEN SIVE METAB OLIC PANEL ) total bilirubin 0.8 mg/dL 0.0-1. 2 Not Available [facility] [address] [address] [place], [address], 10/06/2021 15:12:33 10/05/19 22 10/05/2021 CMP (COMP REHEN SIVE METAB OLIC PANEL ) total protein 7.3 g/dL 6.6-8. 7 Not Available [facility] [address] [address] [place], [address], 10/06/2021 15:12:33 10/05/19 22 10/05/2021 CMP (COMP REHEN SIVE METAB OLIC PANEL ) alanine aminotransfe rase (ALT) 43 U/L 0-33 high Not Available [facility] [address] [address] [address], [place], [address], 10/06/2021 15:12:33 10/05/19 22 10/05/2021 CMP (COMP REHEN SIVE METAB OLIC PANEL ) alkaline phosphatase 61 U/L 40-130 Not Available [facility] [address] [address] [place], [address], 10/06/2021 15:12:33 10/05/19 22 10/05/2021 CMP (COMP REHEN SIVE METAB OLIC PANEL ) aspartate aminotransfe rase (AST) 36 U/L 0-32 high Not Available [facility] [address] [place] [address] [place], [address], 10/06/2021 15:12:33 10/05/19 22 10/05/2021 CMP (COMP REHEN SIVE METAB OLIC PANEL ) calcium 9.7 mg/dL 8.6-10 .2 Not Available [facility] [address] [place] [address] [place], [address], 10/06/2021 15:12:33 10/05/19 22 10/05/2021 CMP (COMP REHEN SIVE METAB OLIC PANEL ) albumin 4.6 g/dL 3.5-5. 2 Not Available [facility] [address] [place] [address] [place], [address], 10/06/2021 15:12:33 10/05/19 22 10/05/2021 CMP (COMP REHEN SIVE METAB OLIC PANEL ) CO2 29 mmol/ L 23-31 Not Available [facility] [address] [place] [address] [place], [address], 10/06/2021 15:12:33 10/05/19 22 10/05/2021 CMP (COMP REHEN SIVE METAB OLIC PANEL ) creatinine, serum 0.9 mg/dL 0.5-0. 9 Not Available [facility] [place] [address] [place], [address], 10/06/2021 15:12:33 10/05/19 22 10/05/2021 CMP (COMP REHEN SIVE METAB OLIC PANEL ) sodium, serum 142 mmol/ L 136-14 5 Not Available [facility] [address] [place] [address] [place], [address], 10/06/2021 15:12:33 10/05/19 22 10/05/2021 CMP (COMP REHEN SIVE METAB OLIC PANEL ) potassium, serum 3.5 mmol/ L 3.5-5. 1 Not Available [facility] [address] [address] [place], [address], 10/06/2021 15:12:33 10/05/19 22 10/05/2021 CMP (COMP REHEN SIVE METAB OLIC PANEL ) chloride, serum 102 mmol/ L 98-107 Not Available [facility] [address] [address] [place], [address], 10/06/2021 15:12:33 10/05/19 22 10/05/2021 CMP (COMP [...] [email or web address] doqi. org. Not Available [facility] [address] [address] [place], [address], 10/06/2021 15:12:33 10/05/19 22 10/05/2021 DLDL dldl 46 mg/dL 0-100 Not Available [facility] [address] [address] [place], [address], 10/06/2021 15:12:34 10/05/19 22 10/05/2021 LIPID PANEL trigylceride s 242 mg/dL 0-150 high Not Available [facility] [address] [address] [address] [place], [address], 10/06/2021 15:12:34 10/05/19 22 10/05/2021 LIPID PANEL cholesterol 145 mg/dL 0-200 Not Available [facility] [address] [place] [address] [address] [place], [address], 10/06/2021 15:12:34 10/05/19 22 10/05/2021 LIPID PANEL uhdl 49 mg/dL 45-65 Not Available [facility] [place] [address] [place], [address], 10/06/2021 15:12:34 10/05/19 22 10/05/2021 LIPID PANEL LDL, calculated 48 mg/dL 0-100 Not Available [facility] [address] [address] [place], [address], 10/06/2021 15:12:34 10/05/19 22 10/05/2021 LIPID PANEL LDL, measured 46 mg/dL <99 Not Available [facility] [address] [place] [address] [place], [address], 10/06/2021 15:12:34 10/05/19 22 10/05/2021 LIPID PANEL LDL/HDL ratio 1 mg/dL 0-5 Not Available [facility] [address] [address] [place], [address], 10/06/2021 15:12:34 10/05/19 22 10/05/2021 LIPID PANEL VLDL 48.4 mg/dL 5.0-40 .0 high Not Available [facility] [place] [address] [place], [address], 10/06/2021 15:12:34 10/05/19 22 10/05/2021 LIPID PANEL cholesterol/ HDL ratio 2.96 0.00-5 .00 Not Available [facility] [address] [address] [place], [address], 10/06/2021 15:12:34 10/05/19 22 10/05/2021 PARAT HYROI Laura VALERIOO NE (PTH) , INTAC T, SERUM PTH 19.2 pg/mL 15.0-6 5.0 Not Available [facility] [address] [address] [place], [address], 10/06/2021 15:12:35 10/05/19 22 10/05/2021 PHOSP HORUS phosphorus, serum 3.1 mg/dL 2.5-4. 5 Not Available [address] [address] [place], [address], 10/06/2021 15:12:35 10/05/19 22 10/05/2021 VITAM IN D 25-HY DROXY vitamin D 132.2 RESULT S VERIFI ED BY REPEAT ANALYS IS. NG/mL 30.0-9 6.0 high Defic ient: <=20 ng/mL Insuf ficie nt: 21-29 ng/mL Suffi cient : >=30 ng/mL Testi ng Perfo rmed at: [facility], [facility] [address], [address] [place] [address] Phone : Fax: Not Available [address] [address] [place], [address], 10/06/2021 15:12:36 10/05/19 22 10/05/2021 URINE MICRO ALBUM IN/CR EATIN INE RATIO urine microalbumin 8 mg/L 0-30 Not Available [address] [address] [place], [address], 10/06/2021 15:12:37 10/05/19 22 10/05/2021 URINE MICRO ALBUM IN/CR EATIN INE RATIO urine creatinine 97.56 mg/dL 28.00- 217.00 Not Available [address] [address] [place], [address], 10/06/2021 15:12:37 10/05/19 22 10/05/2021 URINE MICRO ALBUM IN/CR EATIN INE RATIO urine microalbumin /creatinine ratio 9 mg/g_ creat inine 0-30 Not Available [address] [address] [place], [address], 10/06/2021 15:12:37 04/18/20 22 04/19/2022 LIPID PANEL , STAND CICI cholesterol, total 143 mg/dL <200 normal Not Available [facility] [address] [address], [place], [address], 04/19/2022 12:55:00 04/18/20 22 04/19/2022 LIPID PANEL , STAND CICI HDL cholesterol 49 mg/dL > or = 50 low Not Available [facility] [address] [place], [address], 04/19/2022 12:55:00 04/18/20 22 04/19/2022 LIPID PANEL , STAND CIIC triglyceride s 233 mg/dL <150 high If a non-f astin g speci men was colle cted, consi elisabeth repea t trigl yceri de testi ng on a fasti ng speci men if clini brook indic ated. Tesfaye krishnamurthy et al. J. of Clin. Lipid ol. 2015; 9:129 -169. Not Available [address] [place], [address], 04/19/2022 12:55:00 04/18/20 22 04/19/2022 LIPID PANEL [...] cisco tics. com/f aq/FA Q164) Not Available [facility] [address] [address], [place], [address], 04/19/2022 12:55:00 04/18/20 22 04/19/2022 LIPID PANEL , STAND CICI chol/HDLC ratio 2.9 (calc ) <5.0 normal Not Available [address] [address] [place], [address], 04/19/2022 12:55:00 04/18/20 22 04/19/2022 LIPID PANEL , STAND CICI non HDL cholesterol 94 mg/dL _(marcie c) <130 normal For patie nts with diabe yessica plus 1 major ASCVD risk facto r, treat ing to a non-H DL-C goal of <100 mg/dL (LDL- C of <70 mg/dL ) is consi praveend a thera pebaltazar c optio n. Not Available [address], [address], 04/19/2022 12:55:00 04/18/20 22 04/19/2022 ALBUM IN, RANDO M URINE W/CRE ATINI NE creatinine, random urine 185 mg/dL 20-275 normal Not Available [address] [address] [place], [address], 04/19/2022 12:55:01 04/18/20 22 04/19/2022 ALBUM IN, RANDO M URINE W/CRE ATINI NE albumin, urine 2.3 mg/dL see note: normal Refer ence Range : Refer ence Range Not estab lishe d Not Available [address] [address] [place], [address], 04/19/2022 12:55:01 04/18/20 22 04/19/2022 ALBUM IN, [...] a diagn ostic categ ory. Not Available [address], [address], 04/19/2022 12:55:01 04/18/20 22 04/19/2022 PTH, INTAC [...] or Low Naty l High Not Available [address], [address], 04/19/2022 12:55:02 04/18/2004/19/2022 PTH, INTAC T AND CALCI UM calcium 9.4 mg/dL 8.6-10 .4 normal Not Available [address], [address], 04/19/2022 12:55:02 04/18/20 22 04/19/2022 PHOSP HATE ( PHOSP HORUS ) phosphate ( phosphorus) 3.5 mg/dL 2.1-4. 3 normal Not Available [address], [address], 04/19/2022 12:55:02 04/18/20 22 04/19/2022 COMPR EHENS RYAN METAB OLIC PANEL glucose 96 mg/dL 65-99 normal Fasti ng refer ence inter frances Not Available [address] [place], [address], 04/19/2022 12:55:03 04/18/20 22 04/19/2022 COMPR EHENS RYAN METAB OLIC PANEL urea nitrogen (BUN) 14 mg/dL 7-25 normal Not Available [address], [address], 04/19/2022 12:55:03 04/18/20 22 04/19/2022 COMPR EHENS RYAN METAB OLIC PANEL creatinine 1.01 mg/dL 0.60-1 .00 high Not Available [address], [address], 04/19/2022 12:55:03 04/18/20 22 04/19/2022 COMPR EHENS [...] kdoqi /gfr% 5Fcal culat or Not Available [address], [address], 04/19/2022 12:55:03 04/18/20 22 04/19/2022 COMPR EHENS RYAN METAB OLIC PANEL BUN/creatini ne ratio 14 (calc ) 6-22 normal Not Available [facility] [address], [address], 04/19/2022 12:55:03 04/18/20 22 04/19/2022 COMPR EHENS RYAN METAB OLIC PANEL sodium 142 mmol/ L 135-14 6 normal Not Available [address], [address], 04/19/2022 12:55:03 04/18/20 22 04/19/2022 COMPR EHENS RYAN METAB OLIC PANEL potassium 3.5 mmol/ L 3.5-5. 3 normal Not Available [address], [address], 04/19/2022 12:55:03 04/18/20 22 04/19/2022 COMPR EHENS RYAN METAB OLIC PANEL chloride 104 mmol/ L 98-110 normal Not Available [address], [address], 04/19/2022 12:55:03 04/18/20 22 04/19/2022 COMPR EHENS RYAN METAB OLIC PANEL carbon dioxide 29 mmol/ L 20-32 normal Not Available [address], [address], 04/19/2022 12:55:03 04/18/20 22 04/19/2022 COMPR EHENS RYAN METAB OLIC PANEL calcium 9.4 mg/dL 8.6-10 .4 normal Not Available [address], [address], 04/19/2022 12:55:03 04/18/20 22 04/19/2022 COMPR EHENS RYAN METAB OLIC PANEL protein, total 6.5 g/dL 6.1-8. 1 normal Not Available [address], [address], 04/19/2022 12:55:03 04/18/20 22 04/19/2022 COMPR EHENS RYAN METAB OLIC PANEL albumin 4.1 g/dL 3.6-5. 1 normal Not Available [address], [address], 04/19/2022 12:55:03 04/18/20 22 04/19/2022 COMPR EHENS RYAN METAB OLIC PANEL globulin 2.4 g/dL_ (calc ) 1.9-3. 7 normal Not Available [address] [place], [address], 04/19/2022 12:55:03 04/18/20 22 04/19/2022 COMPR EHENS RYAN METAB OLIC PANEL albumin/glob ulin ratio 1.7 (calc ) 1.0-2. 5 normal Not Available [address], [address], 04/19/2022 12:55:03 04/18/20 22 04/19/2022 COMPR EHENS RYAN METAB OLIC PANEL bilirubin, total 1.3 mg/dL 0.2-1. 2 high Not Available [address], [address], 04/19/2022 12:55:03 04/18/20 22 04/19/2022 COMPR EHENS RYAN METAB OLIC PANEL alkaline phosphatase 55 U/L 37-153 normal Not Available [address], [address], 04/19/2022 12:55:03 04/18/20 22 04/19/2022 COMPR EHENS RYAN METAB OLIC PANEL AST 31 U/L 10-35 normal Not Available [address], [address], 04/19/2022 12:55:03 04/18/20 22 04/19/2022 COMPR EHENS RYAN METAB OLIC PANEL ALT 40 U/L 6-29 high Not Available [address], [address], 04/19/2022 12:55:03 04/18/20 22 04/19/2022 CBC (INCL UDES DIFF/ PLT) white blood cell count 15.6 thous and/u L 3.8-10 .8 high Not Available [address], [address], 04/19/2022 12:55:04 04/18/20 22 04/19/2022 CBC (INCL UDES DIFF/ PLT) red blood cell count 4.80 pepe on/uL 3.80-5 .10 normal Not Available [address], [address], 04/19/2022 12:55:04 04/18/20 22 04/19/2022 CBC (INCL UDES DIFF/ PLT) hemoglobin 15.1 g/dL 11.7-1 5.5 normal Not Available [address], [address], 04/19/2022 12:55:04 04/18/20 22 04/19/2022 CBC (INCL UDES DIFF/ PLT) hematocrit 45.5 % 35.0-4 5.0 high Not Available [address], [address], 04/19/2022 12:55:04 04/18/20 22 04/19/2022 CBC (INCL UDES DIFF/ PLT) MCV 94.8 fL 80.0-1 00.0 normal Not Available [address], [address], 04/19/2022 12:55:04 04/18/20 22 04/19/2022 CBC (INCL UDES DIFF/ PLT) MCH 31.5 pg 27.0-3 3.0 normal Not Available [address], [address], 04/19/2022 12:55:04 04/18/20 22 04/19/2022 CBC (INCL UDES DIFF/ PLT) MCHC 33.2 g/dL 32.0-3 6.0 normal Not Available [address], [address], 04/19/2022 12:55:04 04/18/20 22 04/19/2022 CBC (INCL UDES DIFF/ PLT) RDW 12.9 % 11.0-1 5.0 normal Not Available [address], [address], 04/19/2022 12:55:04 04/18/20 22 04/19/2022 CBC (INCL UDES DIFF/ PLT) platelet count 201 thous and/u L 140-40 0 normal Not Available [address], [address], 04/19/2022 12:55:04 04/18/20 22 04/19/2022 CBC (INCL UDES DIFF/ PLT) MPV 10.4 fL 7.5-12 .5 normal Not Available [address], [address], 04/19/2022 12:55:04 04/18/20 22 04/19/2022 CBC (INCL UDES DIFF/ PLT) absolute neutrophils 3931 cells /uL 1500-7 800 normal Not Available [address], [address], 04/19/2022 12:55:04 04/18/20 22 04/19/2022 CBC (INCL UDES DIFF/ PLT) absolute lymphocytes 25837 cells /uL 850-39 00 high Not Available [address], [address], 04/19/2022 12:55:04 04/18/20 22 04/19/2022 CBC (INCL UDES DIFF/ PLT) absolute monocytes 671 cells /uL 200-95 0 normal Not Available [address], [address], 04/19/2022 12:55:04 04/18/20 22 04/19/2022 CBC (INCL UDES DIFF/ PLT) absolute eosinophils 484 cells /uL 15-500 normal Not Available [address], [address], 04/19/2022 12:55:04 04/18/20 22 04/19/2022 CBC (INCL UDES DIFF/ PLT) absolute basophils 94 cells /uL 0-200 normal Not Available [address], [address], 04/19/2022 12:55:04 04/18/20 22 04/19/2022 CBC (INCL UDES DIFF/ PLT) neutrophils 25.2 % normal Not Available [address], [address], 04/19/2022 12:55:04 04/18/20 22 04/19/2022 CBC (INCL UDES DIFF/ PLT) lymphocytes 66.8 % normal Not Available [address], [address], 04/19/2022 12:55:04 04/18/20 22 04/19/2022 CBC (INCL UDES DIFF/ PLT) monocytes 4.3 % normal Not Available [address], [address], 04/19/2022 12:55:04 04/18/20 22 04/19/2022 CBC (INCL UDES DIFF/ PLT) eosinophils 3.1 % normal Not Available [address], [address], 04/19/2022 12:55:04 04/18/20 22 04/19/2022 CBC (INCL UDES DIFF/ PLT) basophils 0.6 % normal Not Available [address], [address], 04/19/2022 12:55:04 04/18/20 22 04/19/2022 CBC (INCL UDES DIFF/ PLT) comment(s) Moder ate atypi marcie lymph s Smudg e cells prese nt Red cell morph ology appea rs unrem arkab le Not Available [address], [address], 04/19/2022 12:55:04 04/18/20 22 04/19/2022 VITAM IN [...] /MS is recom alisha d: order code 58404 (lukasz ents >2yrs ). See Note 1 Note 1 For addit ional infor milton rodriguez e refer to http: //[facility] juan josé shah.Remberto stDia gnost ics.c om/fa q/FAQ 199 (This link is being provi ded for infor eli you/ educpavel barrett purpo ses only. ) Not Available [facility] [place] [place] [address] [facility] [place], [address], 04/19/2022 12:55:05 02/01/20 21 01/31/2021 MAMMO , scree sirena, bilat eral No observ ation record ed. [email or web address] [place] [address] [address], [place], [address], 02/09/2021 16:05:16 03/23/20 21 03/22/2021 , brittani t No observ ation record ed. [address], [place], [address], 04/11/2021 08:10:13 07/29/20 21 07/29/2021 XR, chest , 2 view No observ ation record ed. [address], [place], [address], 08/22/2021 00:30:57 07/10/20 22 06/30/2022 bone densi ty No observ ation record ed. [facility] [address], [place], [address], 10/06/2022 12:06:49 Result Notes None recorded. 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 Barber - no further investigation warrented per Dr. Barber Problem Notes None recorded. Procedures Surgical History Date Name Laterality Status Provider Name and Address Organization Details Recorded Time 02/01/20 21 Date of Last Mammogram completed Diane Galvez [facility] 05/27/2021 12:13:36 Tonsillectomy completed Alexy Wright MD [address] [place] [address] [address], [place], [address], [facility] 04/11/2018 11:23:07 Tubal Ligation completed Alexy Wright MD [address], [place], [address], [facility] 04/11/2018 11:23:23 Rhinoplasty completed Saskia Fair [address], [place], [address], [facility] 04/11/2018 11:23:27 Other completed Alexy Wright MD [address], [place], [address], [facility] 04/11/2018 11:23:40 Imaging Results Imaging Date Name Status LastModified by Organiz ation Details LastModified Time 01/31/2021 MAMMO, screening, bilateral completed [email or web address] [place] [address] [address], [place], [address], 02/09/2021 16:05:16 03/22/2021 US, breast completed [address] Im[address], [place], [address], 04/11/2021 08:10:13 07/29/2021 XR, chest, 2 view completed [address], [place], [address], 08/22/2021 00:30:57 06/30/2022 bone density completed [address] Im aging [address], [place], [address], 10/06/2022 12:06:49 Procedure Notes None recorded. Medical Equipment None Reported. Allergies Allergen ID Allergen Name Allergen Category Reaction Reaction Severity Criticality Documentation Date Start Date Code Code System Note Provider Name and Address Organization Details Recorded Time 3202 codeine medicatio n rash vomiting Not available Not available Not available 04/11/2018 2670 RxNorm Karen hoang [facility] 8 10:39:37 Medications Name Sig Start Date [...] Updated DateTime 3 154.94 cm 28.9 kg/m2 38803.6 3 g 16 /min 98 [degF] 73 /min Rosa Barcenas [facility] 3 11:08:58 Date Recorded Systolic blood pressure Diastolic blood pressure Provider Name and Address Organization Details Last Updated DateTime 10/06/2022 151 mm[Hg] 93 mm[Hg] Alexy Wright MD [address], [place], [address] 10/06/2022 11:40:18 Date Recorded Body height Respiratory rate Body mass index (BMI) Body weight Body temperature Heart rate Provider Name and Address Organization Details Last Updated DateTime 1 154.94 cm 16 /min 27.8 kg/m2 56107.0 8 g 97.7 [degF] 78 /min Karen Perla [facility] 1 15:33:26 Date Recorded Systolic blood pressure Diastolic blood pressure Provider Name and Address Organization Details Last Updated DateTime 11/24/2020 142 mm[Hg] 79 mm[Hg] Alexy Wright MD [address], [place], [address], [facility] 11/24/2020 15:59:29 Date Recorded Body height Body mass index (BMI) Body weight Body temperature Respiratory rate Heart rate Systolic blood pressure Diastolic blood pressure Systolic blood pressure Diastolic blood pressure Provider Name and Address Organization Details Last Updated DateTime 1 154.94 cm 29.3 kg/m2 15825.8 2 g 98.2 [degF] 20 /min 72 /min 157 mm[Hg] 96 mm[Hg] 175 mm[Hg] 90 mm[Hg] Diane Webster od [facility] 1 12:18:11 Date Recorded Body height Body mass index (BMI) Body weight Body temperature Respiratory rate Heart rate Provider Name and Address Organization Details Last Updated DateTime 2 154.94 cm 29.7 kg/m2 61450 g 98.4 [degF] 16 /min 71 /min Blank Rodríguez [facility] 2 15:31:58 Date Recorded Systolic blood pressure Diastolic blood pressure Provider Name and Address Organization Details Last Updated DateTime 10/05/2021 127 mm[Hg] 88 mm[Hg] Alexy Wright MD [address] [facility] [address], [place], [address], [facility] 10/05/2021 16:45:27 Date Recorded Body height Body mass index (BMI) Body weight Respiratory rate Body temperature Heart rate Systolic blood pressure Diastolic blood pressure Provider Name and Address Organization Details Last Updated DateTime 2 154.94 cm 29.3 kg/m2 15461.8 2 g 16 /min 96.6 [degF] 74 /min 157 mm[Hg] 85 mm[Hg] Rosa Swapna [facility] 2 11:21:48 Social History Question Answer Notes LastModified by Organizat ion Details LastModified Time Tobacco Smoking Status Never Smoker Karen hoang, [facility] 04/11/2018 11:07:05 Do You Have An Advance [...] 04/11/2018 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 10/06/2022 Information not available 10/06/2022 Do You Or Have You Ever Used Smokeless Tobacco? Never Used Smokeless Tobacco Information not available 11/24/2019 How Much Tobacco Do You Smoke? No Information not available 04/11/2018 Do You Use Any Illicit Or Recreational Drugs? No [email or web address] Information not available 10/05/2021 How Many Years Have You Smoked Tobacco? 0 Information not available 04/11/2018 Do You Or Have You Ever Used Any Other Forms Of Tobacco Or Nicotine? No [email or web address] Information not available 10/05/2021 Sex: Unknown Functional [...] conjugate PCV 13 8 completed Not Available [facility] 10/03/2023 05:34:14 Tdap 8 completed Not Available [facility] 10/03/2023 05:34:14 Influenza, high-dose, trivalent, PF 8 completed Not Available [facility] 10/03/2023 05:34:14 zoster recombinant 9 completed Not Available [facility] 10/03/2023 05:34:14 zoster recombinant 9 completed Not Available [facility] 10/03/2023 05:34:14 Influenza, high-dose, trivalent, PF 9 completed Not Available [facility] 10/03/2023 05:34:14 pneumococcal polysaccharide PPV23 0 completed Not Available [facility] 10/03/2023 05:34:14 Influenza, high-dose, quadrivalent, PF 0 completed Not Available [facility] 10/03/2023 05:34:14 COVID-19, mRNA, LNP-S, PF, 100 mcg/0.5mL dose or 50 mcg/0.25mL dose 1 completed Not Available [facility] 10/03/2023 05:34:14 COVID-19, mRNA, LNP-S, PF, 100 mcg/0.5mL dose or 50 mcg/0.25mL dose 1 completed Not Available [facility] 10/03/2023 05:34:14 Influenza, adjuvanted, quadrivalent, PF 1 completed Not Available [facility] 10/03/2023 05:34:14 COVID-19, mRNA, LNP-S, PF, 100 mcg/0.5mL dose or 50 mcg/0.25mL dose 1 completed Not Available [facility] 10/03/2023 05:34:14 Influenza, split virus, quadrivalent, preservative 2 completed Not Available [facility] 10/03/2023 05:34:14 Influenza, adjuvanted, quadrivalent, PF 3 completed Not Available [facility] 10/03/2023 05:34:14 Past Encounters Encounter ID Performer Location Encounter Start Date Encounter Closed Date Diagnosis/Indication Diagnosis SNOMED-CT Code Diagnosis ICD10 Code Diagnosis Note [id number] Alexy Wright MD [facility], [facility] [address] [facility] [address] [place] [address] 04/11/2018 09:50:22 04/11/2018 12:07:31 Benign essential hypertension 6647573 I10 Gastroesop hageal reflux disease without esophagitis 940376020 K21.9 (w/ Hiatal Hernia on UGI) Hyperlipidemia 25798208 E78.5 Asthma 567062808 J45.90 9 -- have not started on Ventolin since diagnosis. Bilateral arthritis of knees 1504037191 254419 M13.861 (R>>L) -- Was advised to have total knee replacemen t by orthopedic surgeon; patient prefers no surgery at this point; pt has tramadol given by Ortho but she does not wants meds. Osteopenia 599019711 M85 .9 Mixed anxi ety and depressive disorder 606950588 F41.8 Fatigue 12543924 R53.83 Hepatitis C screening 41 1495752 Z11.59 Active or passive immunization 611871282 Z23 Screening for malignant neoplasm of colon 921001768 Z12.11 Screening for malignant neoplasm of breast 702893750 Z12.31 Screening for malignant neoplasm of cervix 064728685 Z12.4 Advance di rective discussed with patient 439299581 Z71.89 Body mass index 25-29 - overweight 444308334 Z68.28 -- will advised weight loss-- pt's BMI today is 28.2 (ideal is between 20-25) [id number] Alexy Wright MD [facility], [facility] [address] [place] [address] 05/09/2018 14:25:16 05/09/2018 16:29:28 Adult health examination 708534085 Z00.00 Benign ess ential hypertension 3931812 I10 -- last EKG was done on 04/11/18-- recheck lab(s) on 10/16/18 Hyperlipidemia 76238213 E78.5 -- Based on ASCVD risk calculatio n today 05/09/18 of 14.2%; will change Gemfibrozi l to Rosuvastat in. -- recheck lab(s) on 10/16/18 Gastroesop hageal reflux disease without esophagitis 921343537 K21.9 (w/ Hiatal Hernia on UGI) Asthma 238434507 J45.90 9 -- have not started on Ventolin since diagnosis. -- spirometry last done on 04/15/18 Osteopenia 994300261 M85 .9 -- on Alendronat e 70 mg weekly-- recheck lab(s) on 10/16/18 Bilateral arthritis of knees 9703895245 050855 M13.861 (R>>L) -- Was advised to have total knee replacemen t by orthopedic surgeon; patient prefers no surgery at this point; pt has tramadol given by Ortho but she does not wants meds. Body mass index 25-29 - overweight 225441518 Z68.28 -- will advised weight loss-- pt's BMI today is 28.2 (ideal is between 20-25) Fatigue 53665219 R53.83 -- recheck lab(s) on 10/16/18 Mixed anxi ety and depressive disorder 960477944 F41.8 -- recheck lab(s) on 10/16/18 Advance di rective discussed with patient 166341590 Z71.89 Hepatitis C screening 41 0615070 Z11.59 -- Hepatitis C antibody is nonreactiv e on 04/11/18 Active or passive immunization 007169200 Z23 Screening for malignant neoplasm of colon 983072163 Z12.11 -- stool globin negative for occult blood on 04/15/18 Screening for malignant neoplasm of breast 126898991 Z12.31 -- Report she will not be due for another mammogram until August 2018 Screening for malignant neoplasm of cervix 113537900 Z12.4 -- Patient reschedule d appointmen t with gynecologi st Dr. Slava Christianson for around May 30, 2018 Liver enzy mes level above reference range 961018948 R74.8 [id number] Alexy Wright MD [facility], [facility] [address] [place] [address] 09/09/2018 11:33:05 09/09/2018 14:34:02 Acute sinusitis 98403468 J01.90 -- will issue Levaquin (pt advised that it can cause tendonitis & or tendon rupture). Pt does not want any penicillin or its related. Benign ess ential hypertension 6285288 I10 -- last EKG was done on 04/11/18-- will discontinu e the Indapamide (due to severe Hypokalemi a) and increase Lisinopril from 20 mg to 40 mg daily. -- recheck lab(s) on 10/16/18 Hyperlipidemia 17108300 E78.5 -- Based on ASCVD risk calculatio n today 05/09/18 of 14.2%; will change Gemfibrozi l to Rosuvastat in.-- recheck lab(s) on 10/16/18 Gastroesop hageal reflux disease without esophagitis 476276145 K21.9 (w/ Hiatal Hernia on UGI) Asthma 159642534 J45.90 9 -- have not started on Ventolin since diagnosis. -- spirometry last done on 04/15/18 Osteopenia 103183048 M85 .9 -- on Alendronat e 70 mg weekly-- recheck lab(s) on 10/16/18 Bilateral arthritis of knees 0698807061 689159 M13.861 (R>>L) -- Was advised to have total knee replacemen t by orthopedic surgeon; patient prefers no surgery at this point; pt has tramadol given by Ortho but she does not wants meds. Body mass index 25-29 - overweight 880067860 Z68.28 -- will advised weight loss-- pt's BMI today is 28.2 (ideal is between 20-25) Fatigue 50426573 R53.83 -- recheck lab(s) on 10/16/18 Mixed anxi ety and depressive disorder 632476241 F41.8 -- recheck lab(s) on 10/16/18-- pt self weaned off Citalopram bc she was talking in her sleep & bc of muscle aches. Liver enzy mes level above reference range 205765058 R74.8 w/ dilated Common Bile Duct --referred pt to Gastroente rologist Dr Kennedy Barber for further eval. Advance di rective discussed with patient 795809655 Z71.89 Hepatitis C screening 41 4961294 Z11.59 -- Hepatitis C antibody is nonreactiv e on 04/11/18 Active or passive immunization 972422925 Z23 Screening for malignant neoplasm of colon 396915457 Z12.11 -- stool globin negative for occult blood on 04/15/18 Screening for malignant neoplasm of breast 452607068 Z12.31 -- Report she will not be due for another mammogram until August 2018 Screening for malignant neoplasm of cervix 037598951 Z12.4 -- Patient reschedule d appointmen t with gynecologi st Dr. Slava Christianson for around May 30, 2018 Hypokalemia 17753699 E87 .6 -- will discontinu e the Indapamide and increase Lisinopril from 20 mg to 40 mg daily. Mammography abnormal 168 071277 R92.8 Rt bonny-areol a Breast mass -- inform patient to get additional imaging done. [id number] LESTER GALLO APN [facility] [address] [place] [address] 10/08/2018 11:12:03 10/08/2018 11:56:51 Sinusitis 65121806 J32.9 completed abx - augmentin in hospit[facility] en levaquin 09/09/18no t taking mucinex as ordered during last visit - Vertigo 057488631 R42 CT brain competed at [facility] - normalCaro tids <50% bilaterall y Hypokalemia 25570845 E87 .6 Benign hypertension 1072 5009 I10 uncontroll ed on current regimen -bp check in 2 days [id number] Alexy Wright MD [facility] [address] [place] [address] 10/21/2018 12:33:42 10/21/2018 14:52:24 Hypokalemia 96349147 E87.6 -- resolved on 10/08/18 Mammography abnormal 168 132087 R92.8 Rt bonny-areol a Breast mass -- informed patient to get additional imaging done. Benign ess ential hypertension 9374000 I10 -- last EKG was done on 04/11/18-- will discontinu e the Indapamide (due to severe Hypokalemi a) and increase Lisinopril from 20 mg to 40 mg daily. -- recheck lab(s) on 04/08/19 Hyperlipidemia 41536749 E78.5 -- Based on ASCVD risk calculatio n today 05/09/18 of 14.2%; will change Gemfibrozi l to Rosuvastat in.-- recheck lab(s) within 3 weeks from 10/21/18 Gastroesop hageal reflux disease without esophagitis 936635968 K21.9 (w/ Hiatal Hernia on UGI) Asthma 754976714 J45.90 9 -- have not started on Ventolin since diagnosis. -- spirometry last done on 04/15/18 Osteopenia 054671254 M85 .9 (in L-spine & Hip on DEXA done on 09/09/18 ) -- on Alendronat e 70 mg weekly-- recheck lab(s) within 3 weeks from 10/21/18 Bilateral arthritis of knees 9146146978 825070 M13.861 (R>>L) -- Was advised to have total knee replacemen t by orthopedic surgeon; patient prefers no surgery at this point; pt has tramadol given by Ortho but she does not wants meds. Body mass index 25-29 - overweight 460969701 Z68.27 -- advised weight loss; pt lost 5 # since her last visit-- pt's BMI today is 27.6 (ideal is between 20-25) Mixed anxi ety and depressive disorder 143710964 F41.8 -- recheck lab(s) on 10/16/18-- pt self weaned off Citalopram bc she was talking in her sleep & bc of muscle aches. Liver enzy mes level above reference range 188361541 R74.8 w/ dilated Common Bile Duct --referred pt to Gastroente rologist Dr Kennedy Barber for further eval.-- recheck lab(s) within 3 weeks from 10/21/18 Advance di rective discussed with patient 600739084 Z71.89 Hepatitis C screening 41 7310169 Z11.59 -- Hepatitis C antibody is nonreactiv e on 04/11/18 Active or passive immunization 324896356 Z23 Screening for malignant neoplasm of colon 052584947 Z12.11 -- stool globin negative for occult blood on 04/15/18 Screening for malignant neoplasm of breast 909933230 Z12.31 -- last mammogram done on 10/17/18 Screening for malignant neoplasm of cervix 512049851 Z12.4 -- Patient reschedule d appointmen t with gynecologi st Dr. Slava Christianson for around May 30, 2018 Viral uppe r respiratory tract infection 634402710 J06.9 -- had finished Augemntin 875 on 08/10/18, Levaquin 500 mg issued on 09/09/18; and pt received Doxycyclin e 100mg on 10/08/18 -- I advised pt that she has the cold and her sx will not respond to any ABx. -- I also instruct pt to go to the Emergency Room if any SOB or increasing weakness. Hyperglycemia 27454281 R 73.9 -- recheck lab(s) within 3 weeks from 10/21/18 [id number] Alexy Wright MD [facility] [address] [place] [address] 11/11/2018 10:44:27 11/11/2018 12:46:10 Viral upper respiratory tract infection 042031565 J06.9 -- resolved Benign ess ential hypertension 9358984 I10 -- last EKG was done on 04/11/18-- will discontinu e the Indapamide (due to severe Hypokalemi a) and increase Lisinopril from 20 mg to 40 mg daily. -- recheck lab(s) on 05/01/19 Hyperlipidemia 76906935 E78.5 -- Based on ASCVD risk calculatio n today 05/09/18 of 14.2%; will change Gemfibrozi l to Rosuvastat in.-- recheck lab(s) on 05/01/19 Gastroesop hageal reflux disease without esophagitis 221065663 K21.9 (w/ Hiatal Hernia on UGI) Asthma 109287104 J45.90 9 (asymptoma tic) -- have not started on Ventolin since diagnosis. -- spirometry last done on 04/15/18 Osteopenia 907812166 M85 .9 (in L-spine & Hip on DEXA done on 09/09/18 ) -- on Alendronat e 70 mg weekly-- recheck lab(s) on 05/01/19 Bilateral arthritis of knees 7451147699 795314 M13.861 (R>>L) -- Was advised to have total knee replacemen t by orthopedic surgeon; patient prefers no surgery at this point; pt has tramadol given by Ortho but she does not wants meds. Body mass index 25-29 - overweight 099499869 Z68.25 -- advised weight loss; no weight change since her last visit-- pt's BMI today is 27.6 (ideal is between 20-25) Mixed anxi ety and depressive disorder 966643878 F41.8 -- recheck lab(s) on 10/16/18-- pt self weaned off Citalopram bc she was talking in her sleep & bc of muscle aches. Liver enzy mes level above reference range 839775204 R74.8 w/ dilated Common Bile Duct -- pt saw Gastroente rologist Dr Kennedy Barber on 07/05/19-- recheck lab(s) on 05/01/19 Hyperglycemia 92813539 R 73.9 -- A1c level V.5 on 11/01/18. Mammography abnormal 168 466806 R92.8 -- Need to repeat mammogram one year from 10/17/18 Advance di rective discussed with patient 798690331 Z71.89 Hepatitis C screening 41 3481692 Z11.59 -- Hepatitis C antibody is nonreactiv e on 04/11/18 Active or passive immunization 011891287 Z23 Screening for malignant neoplasm of colon 375103234 Z12.11 -- stool globin negative for occult blood on 04/15/18-- referred pt to Dr Kennedy Barber Screening for malignant neoplasm of breast 032757653 Z12.31 -- last mammogram done on 10/17/18 Screening for malignant neoplasm of cervix 985578517 Z12.4 -- Patient reports she had a normal [employer] exam with gynecologi st Dr. Slava Christianson around May 30, 2018 [id number] Alexy Wright MD [facility] [address] [place] [address] 05/21/2019 11:38:55 05/21/2019 13:25:48 Benign essential hypertension 3523346 I10 -- last EKG was done on 08/11/18 at [facility] which showed normal sinus rhythm.-- will discontinu e the Indapamide (due to severe Hypokalemi a) and increase Lisinopril from 20 mg to 40 mg daily. -- recheck lab(s) Hyperlipidemia 12734531 E78.5 -- Based on ASCVD risk calculatio n today 05/09/18 of 14.2%; will change Gemfibrozi l to Rosuvastat in. For cost saving, changed Rosuvastat in to Atorvastat in Pt is going to take Fish Oil instead of Vascepa that was rx'd Recheck lab Gastroesop hageal reflux disease without esophagitis 218479524 K21.9 (w/ Hiatal Hernia on UGI) - on Protonix 40 mg Asthma 017853585 J45.90 9 (asymptoma tic) -- have not started on Ventolin since diagnosis. -- spirometry last done on 04/15/18 Osteopenia 428720617 M85 .9 (in L-spine & Hip on DEXA done on 09/09/18 ) -- on Alendronat e 70 mg weekly-- Vit D 52 on 11/01/2018 Bilateral arthritis of knees 8504721319 103170 M13.861 (R>>L) -- Was advised to have total knee replacemen t by orthopedic surgeon; patient prefers no surgery at this point; pt has tramadol given by Ortho but she does not wants meds. Body mass index 25-29 - overweight 418435193 Z68.25 -- advised weight loss; no weight change since her last visit-- pt's BMI today is 27.6 (ideal is between 20-25) Mixed anxi ety and depressive disorder 426079937 F41.8 -- pt self weaned off Citalopram bc she was talking in her sleep & bc of muscle aches. Pt is on Sertraline (never picker Duloxetine due to cost) Liver enzy mes level above reference range 380362160 R74.8 w/ dilated Common Bile Duct -- pt saw Gastroente rologist Dr Kennedy Barber on 07/05/18 -- recheck lab(s) on 05/01/19 --- not done Hyperglycemia 15413536 R 73.9 -- A1c level 55 on 11/01/18. Mammography abnormal 168 721620 R92.8 -- Need to repeat mammogram one year from 10/17/18 Advance di rective discussed with patient 423246170 Z71.89 Hepatitis C screening 41 0372643 Z11.59 -- Hepatitis C antibody is nonreactiv e on 04/11/18 Active or passive immunization 902719733 Z23 need Pnuemonia shot - not in record from 2017 or 2018 Screening for malignant neoplasm of colon 155705196 Z12.11 -- stool globin negative for occult blood on 04/15/18-- referred pt to Dr Kennedy Barber. Had colonoscop y scheduled for 08/13/18 but cancelled and has not reschedule d.-- pt counseled to re-schedul e Screening for malignant neoplasm of breast 235930613 Z12.31 -- last mammogram done on 10/17/18 Screening for malignant neoplasm of cervix 703602238 Z12.4 -- Patient reports she had a normal [employer] exam with gynecologi st Dr. Slava Christianson around May 30, 2018 [id number] Alexy Wright MD [facility] [address] [place] [address] 11/24/2019 09:52:44 11/24/2019 10:50:41 Adult health examination 359243669 Z00.00 Benign ess ential hypertension 7914046 I10 -- last EKG was done on 08/11/18 at [facility] which showed normal sinus rhythm.-- will discontinu e the Indapamide (due to severe Hypokalemi a) and increase Lisinopril from 20 mg to 40 mg daily. -- recheck lab(s) Hyperlipidemia 32728774 E78.5 -- Based on ASCVD risk calculatio n today 05/09/18 of 14.2%; will change Gemfibrozi l to Rosuvastat in. For cost saving, changed Rosuvastat in to Atorvastat in Pt is going to take Fish Oil instead of Vascepa that was rx'd Recheck lab Gastroesop hageal reflux disease without esophagitis 500964513 K21.9 (w/ Hiatal Hernia on UGI) - on Protonix 40 mg Asthma 976464533 J45.90 9 (asymptoma tic) -- have not started on Ventolin since diagnosis. -- spirometry last done on 04/15/18 Osteopenia 554680924 M85 .9 (in L-spine & Hip on DEXA done on 09/09/18 ) -- on Alendronat e 70 mg weekly-- Vit D 52 on 11/01/2018 -- last Reclast infusion was around March 2019 Bilateral arthritis of knees 5141592916 037362 M13.861 (R>>L) -- Was advised to have total knee replacemen t by orthopedic surgeon; patient prefers no surgery at this point; pt has tramadol given by Ortho but she does not wants meds. Body mass index 25-29 - overweight 228918453 Z68.28 -- advised weight loss; no weight change since her last visit-- pt's BMI today is 28 (ideal is between 20-25) Mixed anxi ety and depressive disorder 069051652 F41.8 -- pt self weaned off Citalopram bc she was talking in her sleep & bc of muscle aches. Pt is on Sertraline (never picker Duloxetine due to cost) Liver enzy mes level above reference range 458521228 R74.8 w/ dilated Common Bile Duct -- pt saw Gastroente rologist Dr Kennedy Barber on 07/05/18 -- recheck lab(s) on 05/01/19 --- not done Hyperglycemia 02224071 R 73.9 -- A1c level 5.5 on 11/01/18. Advance di rective discussed with patient 727634256 Z71.89 Hepatitis C screening 41 4990145 Z11.59 -- Hepatitis C antibody is nonreactiv e on 04/11/18 Active or passive immunization 931315836 Z23 need Pnuemonia shot - not in record from 2017 or 2018 Screening for malignant neoplasm of colon 992008818 Z12.11 -- stool globin negative for occult blood on 04/15/18-- referred pt to Dr Kennedy Barber. 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 Slava Christianson around May 30, 2018-- pt does not want to see him again as he was 'rough' [id number] Alexy Wright MD [facility] [address] [place] [address] 05/26/2020 10:57:52 05/26/2020 12:12:48 Benign essential hypertension 9643344 I10 (w/ ^microalb- cr) -- last EKG was done on 08/11/18 at [facility] which showed normal sinus rhythm.-- will discontinu e the Indapamide (due to severe Hypokalemi a) and increase Lisinopril from 20 mg to 40 mg daily. -- recheck lab(s) on 11/18/20 Hyperlipidemia 57325507 E78.5 (LDL of 58 on 05/24/20) -- [...] 11/18/20 Gastroesop hageal reflux disease without esophagitis 198022565 K21.9 (w/ Hiatal Hernia on UGI) - on Protonix 40 mg Asthma 524851598 J45.90 9 (asymptoma tic) -- have not started on Ventolin since diagnosis. -- spirometry last done on 04/15/18 Osteopenia 495129094 M85 .9 (in L-spine & Hip on DEXA done on 09/09/18 ) -- on Alendronat e 70 mg weekly-- Vit D 52 on 11/01/2018 -- last Reclast infusion was around March 2019 Bilateral arthritis of knees 4951752251 892248 M13.861 (R>>L) -- Was advised to have total knee replacemen t by orthopedic surgeon; patient prefers no surgery at this point; pt has tramadol given by Ortho but she does not wants meds. Body mass index 25-29 - overweight 465795806 Z68.25 -- advised weight loss; pt lost 5 # since her last visit-- pt's BMI today is 27 (ideal is between 20-25) Mixed anxi ety and depressive disorder 753280969 F41.8 -- pt self weaned off Citalopram bc she was talking in her sleep & bc of muscle aches. Pt is on Sertraline (never picker Duloxetine due to cost) Liver enzy mes level above reference range 786991885 R74.8 w/ dilated Common Bile Duct -- pt saw Gastroente rologist Dr Kennedy Barber on 07/05/18 Hyperglycemia 27907253 R 73.9 -- A1c level 5.5 (11/01/18) --> 5.6 (09/12/19) Advance di rective discussed with patient 904116210 Z71.89 Hepatitis C screening 41 7097106 Z11.59 -- Hepatitis C antibody is nonreactiv e on 04/11/18 Active or passive immunization 104974817 Z23 -- current Screening for malignant neoplasm of colon 385642774 Z12.11 -- stool globin negative for occult blood on 04/15/18-- referred pt to Dr Kennedy Barber. Had colonoscop y scheduled for 08/13/18 but cancelled and has not reschedule d.-- cologuard tested normal on 12/26/19 Screening for malignant neoplasm of breast 237327932 Z12.31 -- last mammogram done on 11/19/19 Screening for malignant neoplasm of cervix 640491543 Z12.4 -- Patient reports she had a normal SLATE SPLITTING SUPERVISOR exam with gynecologi st Dr. Slava Christianson around May 30, 2018-- pt does not want to see him again as he was 'rough' [id number] Alexy Wright MD [facility] [address] [place] [address] 11/24/2020 14:39:59 11/24/2020 16:13:55 Benign essential hypertension 7520715 I10 (w/ ^microalb- cr) -- last EKG was done on 08/11/18 at [facility] which showed normal sinus rhythm. -- will discontinu e the Indapamide (due to severe Hypokalemi a) and increase Lisinopril from 20 mg to 40 mg daily. -- recheck lab(s) on 11/18/20 Hyperlipidemia 80386789 E78.5 (LDL of 58 on 05/24/20) -- [...] lab(s) on 11/18/20 Bilateral arthritis of knees 5135121368 497614 M13.861 (R>>L) -- Was advised to have total knee replacemen t by orthopedic surgeon; patient prefers no surgery at this point; pt has tramadol given by Ortho but she does not wants meds. Gastroesop hageal reflux disease without esophagitis 120772913 K21.9 (w/ Hiatal Hernia on UGI) - on Protonix 40 mg Asthma 889454408 J45.90 9 (asymptoma tic) -- have not started on Ventolin since diagnosis. -- spirometry last done on 04/15/18 Osteopenia 389427281 M85 .9 (in L-spine & Hip on DEXA done on 09/09/18 ) -- on Alendronat e 70 mg weekly-- Vit D 52 on 11/01/2018 -- last Reclast infusion was around March 2019 Body mass index 25-29 - overweight 568981859 Z68.25 -- advised weight loss; pt lost 5 # since her last visit-- pt's BMI today is 27 (ideal is between 20-25) Mixed anxi ety and depressive disorder 573775982 F41.8 -- pt self weaned off Citalopram bc she was talking in her sleep & bc of muscle aches. Pt is on Sertraline (never picker Duloxetine due to cost) Liver enzy mes level above reference range 934946831 R74.8 w/ dilated Common Bile Duct -- pt saw Gastroente rologist Dr Kennedy aBrber on 07/05/18 Hyperglycemia 19808289 R 73.9 -- A1c level 5.5 (11/01/18) --> 5.6 (09/12/19) Advance di rective discussed with patient 523843827 Z71.89 Hepatitis C screening 41 0611596 Z11.59 -- Hepatitis C antibody is nonreactiv e on 04/11/18 Active or passive immunization 334345058 Z23 -- current Screening for malignant neoplasm of colon 866981838 Z12.11 -- stool globin negative for occult blood on 04/15/18-- referred pt to Dr Kennedy Barber. Had colonoscop y scheduled for 08/13/18 but cancelled and has not reschedule d.-- cologuard tested normal on 12/26/19 Screening for malignant neoplasm of breast 664411647 Z12.31 -- last mammogram done on 11/19/19 Screening for malignant neoplasm of cervix 961271781 Z12.4 -- Patient reports she had a normal SLATE SPLITTING SUPERVISOR exam with gynecologi st Dr. Slava Christianson around May 30, 2018-- pt does not want to see him again as he was 'rough' Adult heal examination 506613482 Z00.00 [id number] Alexy Wright MD [facility] [address] [place] [address] 05/27/2021 11:20:23 05/27/2021 12:58:59 Essential hypertension 74464047 I10 (w/ ^microalb- cr) -- last EKG was done on 08/11/18 at [facility] which showed normal sinus rhythm. -- will discontinu e the Indapamide (due to severe Hypokalemi a) and increase Lisinopril from 20 mg to 40 mg daily. -- recheck lab(s) within 5 days from 05/27/21 Hyperlipidemia 90626698 E78.5 (LDL of 58 on 05/24/20) -- [...] 05/27/21 Gastroesop hageal reflux disease without esophagitis 910661604 K21.9 (w/ Hiatal Hernia on UGI) - on Protonix 40 mg-- recheck lab(s) within 5 days from 05/27/21 Osteopenia 034925188 M85 .9 (in L-spine & Hip on DEXA done on 09/09/18 ) -- on Alendronat e 70 mg weekly-- Vit D 52 on 11/01/2018 -- last Reclast infusion was around March 2019-- recheck lab(s) within 5 days from 05/27/[id number] Alexy Wright MD [facility] [address] [place] [address] 10/05/2021 14:54:23 10/05/2021 17:00:21 Essential hypertension 64856896 I10 (w/ ^microalb- cr) -- last EKG was done on 08/11/18 at [facility] which showed normal sinus rhythm. -- will discontinu e the Indapamide (due to severe Hypokalemi a) and increase Lisinopril from 20 mg to 40 mg daily. -- recheck lab(s) today Hyperlipidemia 40721014 E78.5 -- will need to limit Carbohydra [...] today Gastroesop hageal reflux disease without esophagitis 031656981 K21.9 (w/ Hiatal Hernia on UGI) - on Protonix 40 mg-- recheck lab(s) today Osteopenia 739013847 M85 .9 (in L-spine & Hip on DEXA done on 09/09/18 ) -- on Alendronat e 70 mg weekly-- Vit D 52 on 11/01/2018 -- last Reclast infusion was around March 2019-- recheck lab(s) today Lymphocytosis 29286708 D 72.820 -- referred pt to Heme/Onc Dr Yusuf Stewart [id number] Alexy Wright MD [facility] [address] [place] [address] 04/04/2022 11:00:18 04/04/2022 12:34:18 Adult health examination 940801003 Z00.00 Essential hypertension 69173375 I10 (w/ ^microalb- cr) -- last EKG was done on 08/11/18 at [facility] which showed normal sinus rhythm. -- will discontinu e the Indapamide (due to severe Hypokalemi a) and increase Lisinopril from 20 mg to 40 mg daily. -- recheck lab(s) today Hyperlipidemia 55594717 E78.5 -- will need to limit Carbohydra [...] today Gastroesop hageal reflux disease without esophagitis 149668018 K21.9 (w/ Hiatal Hernia on UGI) - on Protonix 40 mg-- recheck lab(s) today Osteopenia 124868737 M85 .9 (in L-spine & Hip on DEXA done on 09/09/18 ) -- on Alendronat e 70 mg weekly-- Vit D 52 on 11/01/2018 -- last Reclast infusion was around March 2019-- recheck lab(s) today Lymphocytosis 31443585 D 72.820 -- referred pt to Heme/Onc Dr Yusuf Stewart Body mass index 25-29 - overweight 181640514 Z68.29 -- advised weight loss; pt lost 2 # since her last visit-- pt's BMI today is 29.3 (ideal is between 20-25) [id number] Alexy Wright MD [facility] [address] [place] [address] 10/06/2022 10:10:41 10/06/2022 12:05:39 Essential hypertension 81906462 I10 (w/ ^microalb- cr)-- uncontroll ed; will add Amlodipine . Memory lapses 261686398 R41.3 -- walk around the house and suddenly felt she had lost time (could not account for several hours lost)-- threw away car keys into trash can & later recalled she threw her keys away.-- pt also reported she threw away a gold bracelet and blue scott earings.-- pt thinks she has seizures Mixed anxi ety and depressive disorder 375283333 F41.8 -- pt feels sad and depressed (since losing her son) in January 2020-- will refer pt to counselor Fermin Sal Lymphocytosis 08213811 D 72.820 -- B-cell lymphocyto sis-- seeing Heme/Onc Dr Yusuf Stewart Health Concerns Section Related Observation LastModified by Organization Detai ls LastModified Time None Recorded Concern Status LastModified by Organization Details LastModified Time None Recorded Advance Directives Directive N: Payers Encounter Date Sequence Insurance Name Policy Number Policy Garcia Covered Member ID Garcia Member ID Guarantor Name 11/24/2020 2 [employer] (MEDICARE SUPPLEMENT) PLAN F Candy Melugin [id number] Candy Melugin 11/24/2020 1 [place] Candy M Melugin [id number] 3 Candy Melugin 05/27/2021 2 [employer] (MEDICARE SUPPLEMENT) PLAN F Candy Melugin [id number] Candy Melugin 05/27/2021 1 [place] Candy M Melugin [id number] Cnady Melugin 10/05/2021 2 [employer] (MEDICARE SUPPLEMENT) PLAN F Candy Melugin [id number] Candy Melugin 10/05/2021 1 [place] Candy M Melugin [id number] 3 Candy Melugin 04/04/2022 2 [employer] (MEDICARE SUPPLEMENT) PLAN F Candy Melugin [id number] Candy Melugin 04/04/2022 1 [place] Candy M Melugin [id number] 3 Candy Melugin 10/06/2022 2 [employer] (MEDICARE SUPPLEMENT) PLAN F Candy Melugin [id number] Candy Melugin 10/06/2022 1 [place] Candy M Melugin [id number] 3 Candy Melugin Notes Date Note Type [...] equivalent symptoms/visual changes Alexy Wright MD [address] [facility] [address], [place], [address], [facility] 11/24/2020 16:12:59 05/27/2021 text/html Pt comes in for HTN, HLD, GERD, Osteopenia, and weight monitoring. Pt feels well and has no c/o Patient denies any jaw or neck discomfort, left arm pain/left arm discomfort, chest discomfort/pain, diaphoresis, breathing symptoms/chest tightness, indigestion sx, n/v, any angina equivalent symptoms, etc. Alexy Wright MD [address] [facility] [address], [place], [address], [facility] 05/27/2021 12:57:38 10/05/2021 text/html Pt comes in for HTN, HLD, GERD, Osteopenia, and leukocytotis monitoring. Pt feels well (in fact pt feels so well, she wants her WBC recheck today.Pt has no f/c, n/v, headaches, confusion, rash, urinary sx, pain/discomfort anywhere (except her knees occasionally). Alexy Wright MD [address] [facility] [address], [place], [address], [facility] 10/05/2021 16:54:57 04/04/2022 text/html Medicare Annual [...] equivalent symptoms/visual changes Alexy Wright MD [address] [facility] [address], [place], [address], [facility] 04/04/2022 12:30:04 10/06/2022 text/html Pt comes in for memory lapses and f/u on her HTN. She is still very depressed.Pt denies any headaches, visual sx, speech problems, focal muscle weakness, numbness /tingling, unsteady balance or gait, coordination problems, urinary symptoms, or bowel symptoms, tiredness or weakness. Alexy Wright MD [address], [place], [address], [facility] 10/06/2022 12:07:37 OBGyn Episode No OBEpisode recorded.
--- OUTSIDE RECORDS SUMMARY | 2024-12-15 14:46 | XMS_ITS | Encounter Summary ---
Author Organization [facility] Address [address] [place] [address] Care Team Providers Care Integration Director Name Role Phone Unavailable Primary Care Provider Unavailabl e Reason for Visit * Reason Comments Follow Up Encounter Details Date Type Department Care Team (Late st Contact Info) Description 12/15/2024 1:15 PM CDT Office Visit [facility] Oncology and Hematology [facility] [address] [facility] [address] [place] [address] Arsh Mayberry MD [address] [facility] [address] [place] [address] CLL (chronic lymphocytic leukemia) (CMS/HCC) (Primary Dx) Social History Tobacco Use Types Packs/Day Years Used Date Smoking Tobacco: Never Smokeless Tobacco: Never Tobacco Cessation:Counseling Given: Not Answered Alcohol Use Standard Drinks/Week Comments Not Currently 0 (1 standard drink = 0.6 oz pur e alcohol) once a year Comments Unknown Sex and Gender Information Value Date Recorded Sex Assigned at Not on file 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 Gender Identity Not on file Sexual Orientation Not on file documented as of this encounter Last Filed Vital Signs Vital Sign Reading Time Taken Comments Blood Pressure 125/73 12/15/2024 1:32 PM CDT Pulse 66 12/15/2024 1:32 PM CDT Temperature 36.1 C (96.9 F) 12/15/2024 1:32 PM CDT Respiratory Rate 15 12/15/2024 1:32 PM CDT Oxygen Saturation 94% 12/15/2024 1:32 PM CDT Inhaled Oxygen Concentration - - Weight 66.6 kg (146 lb 12.8 oz) 12/15/2024 1:32 PM CDT Height - - Body Mass Index 27.74 06/16/2024 1:35 PM CDT documented in this encounter Progress Notes * Arsh Mayberry MD - 12/15/2024 2:18 PM CDT HEMATOLOGY / ONCOLOGY PROGRESS NOTE Patient Identification: Name: Candy Franklin Age: 79 y.o. Sex: female : 1945 DIAGNOSIS Chronic lymphocytic leukemia/SLL. Monoclonal B-cell lymphocytosis diagnosed in 2021. CURRENT TREATMENT Surveillance TREATMENT HISTORY SUBJECTIVE Patient came to the office for follow-up visit. She denies any night sweats fevers and chills. Denies any weight loss. Denies any new lumps bumps and lymphadenopathy. Weight and appetite stable. No other new complaints. Review of system Constitutional: Patient did not mention fevers, sweats, denies any tiredness and fatigue, weight and appetite stable HEENT: Patient did not mention sinus congestion, hearing or vision problems Respiratory: Patient did not mention cough, dyspnea, wheeze Cardiovascular: Patient did not mention chest pain, exertional chest pressure/discomfort, nausea, syncope, shortness of breath GI: Patient did not mention constipation, diarrhea, dsyphagia, reflux symptoms, vomiting, melena : Patient did not mention dysuria, frequency, incontinence, urgency Integumentary system: no lymphadenopathy, sweats, flushing Musculoskeletal: Patient not mention: myalgia, arthralgia Neurological: Patient did not mention blurry or disturbed vision, numbness/weakness, dizziness Skin: No lumps, bumps or rashes. 12 point review of system was reviewed Objective: Vital signs in last 24 hours: As per nursing note Exam: HEENT: Atraumatic, external ears normal, nose normal, oropharynx moist, no pharyngeal exudates. no sinus tenderness Neck- normal range of motion, no tenderness, supple Respiratory: No respiratory distress, normal breath sounds, no rales, no wheezing Cardiovascular: Normal rate, normal rhythm, no murmurs, no gallops, no rubs GI: Soft, nondistended, normal bowel sounds, nontender, no splenomegaly, no hepatomegaly, no mass, no rebound, no guarding : No costovertebral angle tenderness Musculoskeletal: No edema, no tenderness, no deformities. Back- no tenderness Integument: Well hydrated, no rash, Digits and nails inspection normal Lymphatic: No lymphadenopathy noted Exam as above PATH LABS Labs from June 16 showed creatinine 0.8 total bilirubin 1.1 AST 38 WBC 22.9 hemoglobin 14.7 platelet 184,000 neutrophils 18% lymphocyte 72% Labs from December 15 showed WBC 23.4 hemoglobin 13 platelet 335,000 neutrophils 29% lymphocyte 63% Assessment: Plan: There are no active problems to display for this patient. Chronic lymphocytic leukemia/SLL. Patient was initially diagnosed with monoclonal B-cell lymphocytosis in 2021. There is no evidence of lymphadenopathy in hepatospleno on my examination. Patient does not have any B symptoms. I will continue to observe and see her back in 6 months with repeat labs. Factor V Leiden mutation. Patient is asymptomatic and stable. She is taking baby aspirin. She has no personal history of thrombosis. Hypertension. Stable. Follow-up in 6 months. 12/15/2024 Arsh Mayberry MD documented in this encounter Plan of Treatment Upcoming Encounters Date Type Department Care Team (Late st Contact Info) Description 06/16/2025 1:15 PM CDT Office Visit [facility] Oncology and Hematology [facility] [address] [facility] [address] [place] [address] Arsh Mayberry MD [address] [facility] [address] [place] [address] Scheduled Orders Name Type Priority Associated Diagnoses Orde r Schedule CBC WITH DIFFERENTIAL Lab Stat CLL (chronic lymphocytic leukemia) ([facility]) Expected: 06/16/2025, Expires: 12/15/2025 COMPREHENSIVE METABOLIC PANEL Lab Stat CLL (chronic lymphocytic leukemia) ([facility]) Expected: 06/16/2025, Expires: 12/15/2025 LACTATE DEHYDROGENASE Lab Routine CLL (chronic lymphocytic leukemia) ([facility]) Expected: 06/16/2025, Expires: 12/15/2025 documented as of this encounter Visit Diagnoses Diagnosis CLL (chronic lymphocytic leukemia) ([facility])- Primary Chronic lymphoid leukemia, without mention of having achieved remission documented in this encounter
--- OUTSIDE RECORDS SUMMARY | 2024-12-15 14:46 | XMS_ITS | Encounter Summary ---
Author Organization [facility] Address 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 Oncology and Hematology - [place] [address] [facility] [address] [place] [address] Arsh Mayberry MD [address] [facility] [address] [place] [address] documented as of this encounter Visit Diagnoses Diagnosis Otalgia, unspecified- Primary documented in this encounter
--- OUTSIDE RECORDS SUMMARY | 2024-12-15 14:46 | XMS_ITS | Clinical Summary ---
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 Advance Directives Documents on File Type Date Recorded Patient Belt Maker Expl anation Other Advance Directive 10/07/2021 9:26 AM PT [employer] Care Teams Structural Architect Relationship Specialty Start Date End Date Namita Mccarthy APRN, WET CROWN BLOCKING OPERATOR [address] [place] [id number] PCP - General Advanced Practice Nurse 05/21/23 Yusuf Stewart DO [address] [place] [address] Consulting Physician Oncology 08/15/21
--- OUTSIDE RECORDS SUMMARY | 2024-12-15 14:46 | XMS_ITS | Referral Summary ---
Author Organization [facility] at the [facility] Address [address] [place] [address] Care Team Providers Care Shop Mechanic Helper Name Role Phone Alexy Wright MD Primary Care Provider [phone] Allergies Active Allergy Reactions Criticality Noted Date Comments Codeine Medications metoprolol XL (TOPROL-XL) 25 mg extended release tablet Take 25 mg by mouth daily 0 Active lisinopriL (PRINIVIL,ZESTR IL) 40 mg tablet Take 40 mg by mouth daily 0 Active albuterol HFA (PROVENTIL HFA,VENTOLIN HFA,PROAIR HFA) 90 mcg/actuation inhaler Inhale 2 puffs every 6 (six) hours as needed Active traMADoL (ULTRAM) 50 mg tablet TAKE 1 TABLET BY MOUTH UP TO TWICE DAILY NEEDED ONLY 0 Active atorvastatin (LIPITOR) 20 mg tablet Take 20 mg by mouth daily [address] (PROTONIX) 40 mg EC tablet 0 Active aspirin 81 mg chewable tablet Take 81 mg by mouth daily Active fluticasone propionate (FLONASE) 50 mcg/actuation nasal spray Administer 1 spray into affected nostril(s) daily Active potassium chloride ER (potassium chloride ER) 10 mEq CR tablet Take 10 mEq by mouth 2 (two) times a day Active sertraline (ZOLOFT) 25 mg tablet Take 25 mg by mouth daily 0 Active Active Problems Problem Noted Date Diagnosed Date Abnormal EKG 06/22/2020 Essential hypertension 06/22/2020 Dyslipidemia 06/22/2020 Family history of coronary artery disease 2019 Social History Tobacco Use Types Packs/Day Years Used Date Smoking Tobacco: Former Smokeless Tobacco: Never Comments Unknown Sex and Gender Information Value Date Recorded Sex Assigned at Not on file Legal Sex Female 6:47 AM ECOLOGIST Gender Identity Not on file Sexual Orientation Not on file Last Filed Vital Signs Vital Sign Reading Time Taken Comments Blood Pressure 140/82 06/22/2020 11:39 AM CDT Pulse 71 06/22/2020 11:39 AM CDT Temperature 36.4 C (97.5 F) 06/22/2020 11:39 AM CDT Respiratory Rate - - Oxygen Saturation - - Inhaled Oxygen Concentration - - Weight 67.1 kg (148 lb) 06/22/2020 11:39 AM CDT Height 154.9 cm (5' 1 ) 06/22/2020 11:39 AM CDT Body Mass Index 27.96 06/22/2020 11:39 AM CDT Plan of Treatment Not on [place] [address] [facility] Care Teams Shop Mechanic Helper Relationship Specialty Start Date End Date Alexy Wright MD [address] [facility] [address] [place] [address] PCP - General Internal Medicine 05/31/20
--- OUTSIDE RECORDS SUMMARY | 2024-12-15 14:46 | XMS_ITS | Encounter Summary ---
Author Organization [facility] Address 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 [address] [place] [address] documented as of this encounter Visit Diagnoses Diagnosis Localized adiposity- Primary documented in this encounter
--- OUTSIDE RECORDS SUMMARY | 2024-12-15 14:46 | XMS_ITS | Encounter Summary ---
Author Organization [facility] Address [address] [place] [address] Care Team Providers Care Marketing Programs Manager Name Role Phone Alexy Wright MD Primary Care Provider Encounter Details Date Type Department Care Team (Late st Contact Info) Description 07/26/[address] [facility] [address] [place], [place] [id number] Alexy Wright MD [address] [place] [address] Social History Tobacco Use Types [...] Primary documented in this encounter Care Teams Marketing Programs Manager Relationship Specialty Start Date End Date Alexy Wright MD [address] [place] [address] PCP - General INTERNAL MEDICINE 07/03/19 documented as of this encounter
--- OUTSIDE RECORDS SUMMARY | 2024-12-15 14:46 | XMS_ITS | Encounter Summary ---
Author Organization [facility] Address [address] [place] [address] Care Team Providers Care Principal Strategist Name Role Phone Alexy Wrihgt MD Primary Care Provider [phone] Encounter Details Date Type Department Care Team (Late st Contact Info) Description 06/28/2021 Therapy Plan [facility] [place] [address] Madisyn Cai, RN Social History Tobacco Use [...] Primary documented in this encounter Care Teams Principal Strategist Relationship Specialty Start Date End Date Alexy Wright MD [address] [place] [id number] PCP - General INTERNAL MEDICINE 07/03/19 documented as of this encounter
--- OUTSIDE RECORDS SUMMARY | 2024-12-15 14:46 | XMS_ITS | Clinical Summary ---
Author Organization [facility] Address [address] [place] [address] Care Team Providers Care Batch Roller Operator Name Role Phone Alexy Wright MD Primary Care Provider [phone] Allergies Active Allergy Reactions Criticality Noted Date [...] Comments Blood Pressure 148/82 10/25/2022 12:35 PM CUSTOMER SOLUTIONS SUPERVISOR Pulse 76 10/25/2022 12:35 PM CUSTOMER SOLUTIONS SUPERVISOR Temperature 37 C (98.6 F) 10/25/2022 11:58 AM CUSTOMER SOLUTIONS SUPERVISOR Respiratory Rate 16 10/25/2022 11:58 AM CUSTOMER SOLUTIONS SUPERVISOR Oxygen Saturation 98% 10/25/2022 11:58 AM CUSTOMER SOLUTIONS SUPERVISOR Inhaled Oxygen Concentration - - Weight 67.1 [...] Vaccine ( season) 2024 08/17/2021, 12/06/2020, 11/08/2020 DTaP, Tdap and Td Vaccines (2 - [...] Recently Relevant to Health Maintenance Insurance MEDICARE [facility] Care Teams Batch Roller Operator Relationship Specialty Start Date End Date Alexy Wright MD [address] [facility] [address] [place] [address] PCP - General INTERNAL MEDICINE 07/03/19
--- OUTSIDE RECORDS SUMMARY | 2024-12-15 14:46 | XMS_ITS | Clinical Summary ---
Author Organization [facility] at the [facility] Address [address] [place] [address] Care Team Providers Care Information Manager Name Role Phone Alexy Wright MD Primary Care Provider [phone] Allergies Active Allergy Reactions Criticality Noted Date [...] Family history of coronary artery disease 2019 Surgical History Surgery Date Site/Laterality Comments BELT ABDOMINOPLASTY Abdominoplasty - (Added by TW Conv) Medical History Medical History Date Comments Personal history of other di seases of the circulatory system History of hypertension - (A dded by TW Conv) Family History Medical History Relation Name Comments Diabetes Mother Diabetes Mellit us - (Added by TW Conv) Hypertension Mother Hypertension - (Added by TW Conv) Stroke Mother Stroke Syndrome - (Added by TW Conv) Breast cancer Sister Breast Cancer - (Added by TW Conv) Relation Name Status Comments Mother Sister Social History Tobacco Use Types Packs/Day Years Used Date Smoking Tobacco: Former Smokeless Tobacco: Never Comments Unknown Sex and Gender Information Value Date Recorded Sex Assigned at Not on file 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
--- OUTSIDE RECORDS SUMMARY | 2024-12-15 14:46 | XMS_ITS | Encounter Summary ---
Author Organization [facility] Address [address] [place] [address] Care Team Providers Care Industrial Automation Specialist Name Role Phone Unavailable Primary Care Provider Unavailabl e Encounter Details Date Type Department Care Team (Latest Contact Info) Description 12/11/2008 Outpatient Historical [facility] Guero Salguero MD [address] [facility] [address] [place] [address] Melanoma of Skin, Site Unspecified (CMS/HCC); Malig Jaleel Skin Face NEC; Other Postprocedural Status; Unspecified Essential Hypertension; Encounter for Long-Term (Current) Use of Other Medications Social History Tobacco Use Types Packs/Day Years Used Date Smoking Tobacco: Never Assessed Comments Unknown Sex and Gender Information Value Date Recorded Sex Assigned at Not on file 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 Gender Identity Not on file Sexual Orientation Not on file documented as of this encounter Plan of Treatment Upcoming Encounters Date Type Department Care Team (Late st Contact Info) Description 06/16/2025 1:15 PM CDT Office Visit [facility] Oncology and Hematology - [place] [address] [facility] [address] [place] [address] Arsh Mayberry MD [address] [facility] [address] [place] [address] documented as of this encounter Procedures Procedure Name Priority Date/Time Associated Diagnosis Comments HEMOGLOBIN AND HEMATOCRIT Routine 12/11/2008 2:25 PM CDT BASIC METABOLIC PANEL Routine 12/11/2008 2:25 PM CDT documented in this encounter Results * HEMOGLOBIN AND HEMATOCRIT (12/11/2008 2:25 PM CDT) HEMOGLOBIN 13.5 11.8 - 14.8 g/dL [facility] HEMATOCRIT 42.2 35.5 - 44.0 % [facility] Blood specimen (specimen) 12/11/2008 2:25 PM CDT 12/11/2008 3:15 PM CDT us Guero Salguero MD HEMATOLOGY ORDERABLES Final Resu lt INTERFACE SYSTEM Refer to clinic/hospital department [facility] CLIA# [id number] 5 Jason JASS FLOYDJENNY REID CREROSALIO SAMS [id number] * (ABNORMAL) BASIC METABOLIC PANEL (12/11/2008 2:25 PM CDT) CREATININE 0.93 0.51 - 0.95 mg/dL [facility] POTASSIUM 3.1(L) 3.5 - 4.9 mmol/L [facility] BUN 15 6 - 20 mg/dL [facility] CHLORIDE 103 96 - 108 mmol/L [facility] GLUCOSE 120(H) 65 - 99 mg/dL [facility] SODIUM 141 135 - 145 mmol/L [facility] CALCIUM 9.4 8.6 - 10.2 mg/dL [facility] CO2 28 22 - 30 mmol/L [facility] GFR, >60 >=60 mL/min/1. 7 sq meter [facility] GFR >60 >=60 mL/min/1. 7 sq meter [facility] Comment: Modification of Diet in Renal Disease (MDRD) study formula. Estimated GFR rate interpretative information for both Americans and non- Americans is available on the [facility] Intranet at: [email or web address] Select: Lab Policies and Procedures Select: Reference Ranges - GFR Blood specimen (specimen) 12/11/2008 2:25 PM CDT 12/11/2008 3:15 PM CDT us Guero Salguero MD CHEMISTRY ORDERABLES Edited INTERFACE SYSTEM Refer to clinic/hospital department [facility] CLIA# [id number] [address] [place] [address] documented in this encounter Visit Diagnoses Diagnosis Melanoma of skin, site unspecified (CMS/HCC) Melanoma of skin, site unspecified Other and unspecified malignant neoplasm of skin of other and unspecified parts of face Other postprocedural status(V45.89) Other postprocedural status Unspecified essential hypertension Encounter for long-term (current) use of other medications documented in this encounter
--- OUTSIDE RECORDS SUMMARY | 2024-12-15 14:46 | XMS_ITS | Clinical Summary ---
Author Organization [facility] Address [address] [place] [address] Care Team Providers Care Rubber Tubing Backer Name Role Phone Unavailable Primary Care Provider [...] 50 mg by mouth daily. Active zoledronic mrgh-hyraxbiF-i ater (RECLAST) 5 mg/100 mL Piggyback Inject 5 mg by intravenous injection. 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 [address] [place] [address] Arsh Mayberry MD [address] [facility] [address] [place] [address] Health Maintenance Due Date Last Done Comments DTAP/TDAP/TD VACCINES (1 - Tdap) 01/17/1964 Traditional Medicare (ACO) A nnual Wellness Visit 01/17/1964 ZOSTER VACCINE (1 of 2) 01/17/1964 RSV VACCINE (60+ or ) (1 - 1-dose 75+ series) 01/17/2020 PNEUMOCOCCAL VACCINE 50+ YEA RS (2 of 2 - PCV) 05/04/2021 05/04/2020 INFLUENZA VACCINE (#1) 2024 2, 07/19/2022, 06/21/2021, Additional history exists OSTEOPOROSIS SCREENING Completed 09/09/2018 Insurance MEDICARE PART A AND B [employer] MEDICARE SUPP AESSI
--- OUTSIDE RECORDS SUMMARY | 2024-12-15 14:46 | XMS_ITS | Encounter Summary ---
Author Organization [facility] Address [address] [place] [address] Phone Care Team Providers Care Buildings And Grounds Superintendent Name Role Phone Alexy Renteria MD Primary Care Provider [phone] Yusuf Stewart DO Unavailable [phone] Namita Mccarthy APRN, CNP Primary Care Provider + Encounter Details Date Type Department Care Team (Late st Contact Info) Description 10/07/2021 Telephone [facility] [address] [place] [address] Yusuf Stewart, [address] [place] [address] Social History Tobacco Use Types Packs/Day Years Used Date Smoking Tobacco: Never Assessed Comments Unknown Sex and Gender Information Value Date Recorded Sex Assigned at Not on file 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 Gender Identity Not on file Sexual Orientation Not on file documented as of this encounter Miscellaneous Notes * Telephone Encounter - Jillian Mccloud - 10/07/2021 9:52 AM CST PT HAS CANCELLED 2 PRIOR NEW PT APPT, I CALLED AGAIN 10/07/2021 @ 950AM TO TRY TO RESCHEDULE, LEFT V/M ON PHONE, CALLED DR RENTERIA TO ADVISE HIM ALSO PRESS OPERATOR APPRENTICE documented in this encounter Plan of Treatment Not on file documented as of this encounter Visit Diagnoses Not on filedocumented in this encounter Care Teams Buildings And Grounds Superintendent Relationship Specialty Start Date End Date Alexy Renteria MD [address] [facility] [address] [place] [address] PCP - General Internal Medicine 08/15/21 05/20/23 Namita Mccarthy APRN, PHD [facility] [address] [place] [address] [address] [place] [address] PCP - General Advanced Practice Nurse 05/21/23 Yusuf Stewart DO [address] [place] [phone] Consulting Physician Oncology 08/15/21 documented as of this encounter
== END 2024-12-15 13:01 | disposition home or self-care (01) ==
LOC: ANHLAB 13:01
PROVIDERS: PCP Nurse Practitioner Family; Visit Provider Internal Medicine Hematology & Oncology
DX: C91.10 Chronic lymphocytic leukemia of B-cell type not having achieved remission (principal)
CPT/HCPCS: 36415; 80047; 80053; 83615; 85025

== ENCOUNTER 2025-06-16 13:10 | Outpatient (CLI) | payer MEDICARE, SELFPAY ==
--- OUTSIDE RECORDS SUMMARY | 2025-06-16 13:15 | XMS_ITS | Encounter Summary ---
Author Organization [facility] [employer] [facility] Address [address] [place] [address] Care Team Providers Care Medical Front Desk Specialist Name Role Phone Unavailable Primary Care Provider Unavailabl e Reason for Visit * Reason Comments Follow Up Cancer Encounter Details Date Type Department Care Team (Late st Contact Info) Description 06/16/2025 1:15 PM CDT Office Visit [facility] Oncology and Hematology [facility] [address] [facility] [address] [place] [address] Arsh Mayberry MD [address] [facility] [address] [place] [address] CLL (chronic lymphocytic leukemia) (Primary Dx) Social History Tobacco Use Types Packs/Day Years Used Date Smoking Tobacco: Never Smokeless Tobacco: Never Tobacco Cessation:Counseling Given: Not Answered Alcohol Use Standard Drinks/Week Comments Not Currently 0 (1 standard drink = 0.6 oz pur e alcohol) once a year Comments Unknown Sex and Gender Information Value Date Recorded Sex Assigned at Not on file 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 Gender Identity Not on file Sexual Orientation Not on file documented as of this encounter Last Filed Vital Signs Vital Sign Reading Time Taken Comments Blood Pressure 164/88 06/16/2025 1:33 PM CDT Pulse 64 06/16/2025 1:30 PM CDT Temperature 36.3 C (97.4 F) 06/16/2025 1:30 PM CDT Respiratory Rate 16 06/16/2025 1:30 PM CDT Oxygen Saturation 95% 06/16/2025 1:30 PM CDT Inhaled Oxygen Concentration - - Weight 67 kg (147 lb 12.8 oz) 06/16/2025 1:30 PM CDT Height - - Body Mass Index 27.93 06/16/2024 1:35 PM CDT documented in this encounter Progress Notes * Arsh Mayberry MD - 06/16/2025 1:31 PM CDT HEMATOLOGY / ONCOLOGY PROGRESS NOTE Patient Identification: Name: Candy Franklin Age: 80 y.o. Sex: female : 1945 DIAGNOSIS Chronic lymphocytic leukemia/SLL. Monoclonal B-cell lymphocytosis diagnosed in 2021. CURRENT TREATMENT Surveillance TREATMENT HISTORY SUBJECTIVE Patient came into the office for follow-up visit. She denies any night sweats fevers and chills. Denies any weight changes. Denies any tiredness and fatigue. Denies any other new complaints. Review of system Constitutional: Patient did not mention fevers, sweats, weight and appetite stable, denies any tiredness and fatigue HEENT: Patient did not mention sinus congestion, [...] rash, Digits and nails inspection normal Lymphatic: There is no lymphadenopathy Exam as above PATH LABS Labs from June 16 showed creatinine 0.8 total bilirubin 1.1 AST 38 WBC 22.9 hemoglobin 14.7 platelet 184,000 neutrophils 18% lymphocyte 72% Labs from December 15 showed WBC 23.4 hemoglobin 13 platelet 335,000 neutrophils 29% lymphocyte 63% Labs from June 16 showed WBC 25.8 hemoglobin 14.1 platelet 164,000 neutrophils 15% lymphocyte 80%creatinine 1.0 Assessment: Plan: There are no active problems to display for this patient. Chronic lymphocytic leukemia/SLL. Patient was initially diagnosed with monoclonal B-cell lymphocytosis in 2021. Patient is clinically asymptomatic. There is no evidence of lymphadenopathy and hepatosplenomegaly on my examination. Labs showed slightly increase in the WBC count. Patient has no B symptoms. There is no indication to treat and we will continue to observe. I will see her back in 8 months with repeat labs. Factor V Leiden mutation. She is asymptomatic and will continue baby aspirin. She has no personal history of thrombosis. Hypertension. Blood pressure is elevated. She will continue antihypertensive. Labs on return to clinic in 8 months 06/16/2025 Arsh Mayberry MD documented in this encounter Plan of Treatment Upcoming Encounters Date Type Department Care Team (Late st Contact Info) Description 02/15/2026 1:00 PM CDT Office Visit [facility] Oncology and Hematology [facility] [address] [facility] [address] [place] [address] Arsh Mayberry MD [address] [facility] [address] [place] [address] Scheduled Orders Name Type Priority Associated Diagnoses Orde r Schedule CBC WITH DIFFERENTIAL Lab Stat CLL (chronic lymphocytic leukemia) Expected: 02/14/2026, Expires: 05/15/2026 BASIC METABOLIC PANEL Lab Stat CLL (chronic lymphocytic leukemia) Expected: 02/14/2026, Expires: 05/15/2026 LACTATE DEHYDROGENASE Lab Routine CLL (chronic lymphocytic leukemia) Expected: 02/14/2026, Expires: 05/15/2026 documented as of this encounter Visit Diagnoses Diagnosis CLL (chronic lymphocytic leukemia)- Primary Chronic lymphoid leukemia, without mention of having achieved remission documented in this encounter
[2025-06-16 13:28] LABS: Hematocrit 42.8 % (37.0-47.0); Hemoglobin 14.1 g/dL (12.0-15.0); Immature Granulocyte Percent A 0.2 % (0-0.5); Lymphocytes Absolute Auto 20.66 K/mm3 (0.9-3.2); Mean Corpuscular HGB Conc 32.9 g/dl (32-36); Mean Corpuscular Hemoglobin 31.8 pg (26-34); Mean Corpuscular Volume 96.4 fl (80-100); Nucleated Red Blood Cells Absolute Auto 0.000 K/mm3 (0.0-0.012); Nucleated Red Blood Cells Perc 0.0 % (0.0-0.2); Platelet Count Result 164 k/mm3 (150-375); Red Blood Count 4.44 M/mm3 (4.2-5.4); White Blood Count 25.8 K/mm3 (4.5-10.0)
[2025-06-16 13:31] LABS: Blood Urea Nitrogen 11 mg/dL (8-26); Carbon Dioxide 29 mmol/L (22-30); Chloride 102 mmol/L (98-109); Estimated Glomerular Filt Rate 53; Glucose 116 mg/dL (70-105); Ionized Calcium (POC) 1.18 mmol/L (1.11-1.31); Potassium 3.8 mmol/L (3.5-4.9); Sodium 142 mmol/L (138-146)
[2025-06-16 13:32] LABS: Schistocytes None Seen
--- OUTSIDE RECORDS SUMMARY | 2025-06-16 14:04 | XMS_ITS | Encounter Summary ---
Author Organization [facility] Address [address] [place] [address] Care Team Providers Care Data Engineer Name Role Phone Unavailable Primary Care Provider Unavailabl e Encounter Details Date Type Department Care Team (Latest Contact Info) Description 12/11/2008 Outpatient Historical [facility] Guero Salguero MD [address] [facility] [address] [place] [address] Melanoma of Skin, Site Unspecified (CMS/HCC); Malig Jaleel Skin Face NEC; Other Postprocedural Status; Unspecified Essential Hypertension; Encounter for Long-Term (Current) Use of Other Medications Social History Tobacco Use Types Packs/Day Years Used Date Smoking Tobacco: Never Assessed Comments Unknown Sex and Gender Information Value Date Recorded Sex Assigned at Not on file 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 Gender Identity Not on file Sexual Orientation Not on file documented as of this encounter Plan of Treatment Upcoming Encounters Date Type Department Care Team (Late st Contact Info) Description 02/15/2026 1:00 PM CDT Office Visit [facility] Oncology and Hematology - [place] [address] [facility] [address] [place] [address] Arsh Mayberry MD [address] [facility] [address] [place] [address] documented as of this encounter Procedures Procedure Name Priority Date/Time Associated Diagnosis Comments HEMOGLOBIN AND HEMATOCRIT Routine 12/11/2008 2:25 PM CDT BASIC METABOLIC PANEL Routine 12/11/2008 2:25 PM CDT documented in this encounter Results * HEMOGLOBIN AND HEMATOCRIT (12/11/2008 2:25 PM CDT) HEMOGLOBIN 13.5 11.8 - 14.8 g/dL [facility] HEMATOCRIT 42.2 35.5 - 44.0 % [facility] Blood specimen (specimen) 12/11/2008 2:25 PM CDT 12/11/2008 3:15 PM CDT us Guero Salguero MD HEMATOLOGY ORDERABLES Final Resu lt INTERFACE SYSTEM Refer to clinic/hospital department [facility] CLIA# [id number] 5 Jason JASS FLOYDJENNY REID CREROSALIO SAMS [id number] * (ABNORMAL) BASIC METABOLIC PANEL (12/11/2008 2:25 PM CDT) CREATININE 0.93 0.51 - 0.95 mg/dL [facility] POTASSIUM 3.1(L) 3.5 - 4.9 mmol/L [facility] BUN 15 6 - 20 mg/dL [facility] CHLORIDE 103 96 - 108 mmol/L [facility] GLUCOSE 120(H) 65 - 99 mg/dL [facility] SODIUM 141 135 - 145 mmol/L [facility] CALCIUM 9.4 8.6 - 10.2 mg/dL [facility] CO2 28 22 - 30 mmol/L [facility] GFR, >60 >=60 mL/min/1. 7 sq meter [facility] GFR >60 >=60 mL/min/1. 7 sq meter [facility] Comment: Modification of Diet in Renal Disease (MDRD) study formula. Estimated GFR rate interpretative information for both Americans and non- Americans is available on the [facility] Intranet at: [email or web address] Select: Lab Policies and Procedures Select: Reference Ranges - GFR Blood specimen (specimen) 12/11/2008 2:25 PM CDT 12/11/2008 3:15 PM CDT us Guero Salguero MD CHEMISTRY ORDERABLES Edited INTERFACE SYSTEM Refer to clinic/hospital department [facility] CLIA# [id number] [address] [place] [address] documented in this encounter Visit Diagnoses Diagnosis Melanoma of skin, site unspecified (CMS/HCC) Melanoma of skin, site unspecified Other and unspecified malignant neoplasm of skin of other and unspecified parts of face Other postprocedural status(V45.89) Other postprocedural status Unspecified essential hypertension Encounter for long-term (current) use of other medications documented in this encounter
--- OUTSIDE RECORDS SUMMARY | 2025-06-16 14:04 | XMS_ITS | Encounter Summary ---
Author Organization [facility] Address 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
--- OUTSIDE RECORDS SUMMARY | 2025-06-16 14:04 | XMS_ITS | Clinical Summary ---
Author Organization [facility] Address [address] [place] [address] Care Team Providers Care Food Service Order Clerk Name Role Phone Alexy Wright MD Primary Care Provider [phone] Allergies Active Allergy Reactions Criticality Noted Date [...] Comments Blood Pressure 148/82 10/25/2022 12:35 PM RACE STARTER Pulse 76 10/25/2022 12:35 PM RACE STARTER Temperature 37 C (98.6 F) 10/25/2022 11:58 AM RACE STARTER Respiratory Rate 16 10/25/2022 11:58 AM RACE STARTER Oxygen Saturation 98% 10/25/2022 11:58 AM RACE STARTER Inhaled Oxygen Concentration - - Weight 67.1 kg (148 lb) 07/07/2019 9:42 AM CDT Height 154.9 cm (5' 1) 07/07/2019 9:42 AM CDT Body Mass Index 27.96 07/07/2019 9:42 AM CDT Plan of Treatment Health Maintenance Due Date Last Done Comments Annual Medicare Wellness Visit 2010 RSV Immunization or 60+ Years (1 - 1-dose 75+ series) 01/17/2020 COVID-19 Vaccine ( season) 2025 08/17/2021, 12/06/2020, 11/08/2020 DTaP, Tdap and Td Vaccines (2 - Td or Tdap) 05/08/2028 05/08/2018 Zoster Vaccines Completed 02/20/2019, 11/18/2018 Pneumococcal Vaccine: 50+ Years Completed 05/04/2020, 04/21/2018 Dexa Scan (General) [...] Most Recently Relevant to Health Maintenance Insurance [facility] Care Teams Food Service Order Clerk Relationship Specialty Start Date End Date Alexy Wright MD [address] [facility] [address] [place] [address] PCP - General INTERNAL MEDICINE 07/03/19
--- OUTSIDE RECORDS SUMMARY | 2025-06-16 14:04 | XMS_ITS | Encounter Summary ---
Author Organization [facility] Address [address] [place] [address] Care Team Providers Care Communications Technologist Name Role Phone Alexy Wright MD Primary Care Provider [phone] Encounter Details Date Type Department Care Team (Late st Contact Info) Description 06/28/2021 Therapy Plan [facility] [place] [address] Madisyn Cai, RN Social History Tobacco Use [...] Primary documented in this encounter Care Teams Communications Technologist Relationship Specialty Start Date End Date Alexy Wright MD [address] [place] [phone] PCP - General INTERNAL MEDICINE 07/03/19 documented as of this encounter
--- OUTSIDE RECORDS SUMMARY | 2025-06-16 14:04 | XMS_ITS | Encounter Summary ---
Author Organization [facility] Address [address] [place] [address] Phone Care Team Providers Care Respiratory Equipment Assistant Name Role Phone Alexy Renteria MD Primary Care Provider [phone] Yusuf Stewart DO Unavailable [phone] Namita Mccarthy APRN, CNP Primary Care Provider + Encounter Details Date Type Department Care Team (Late st Contact Info) Description 10/07/2021 Telephone [facility] [address] [place] [address] Yusuf Stewart, [address] [place] [address] Social History Tobacco Use Types Packs/Day Years Used Date Smoking Tobacco: Never Assessed Comments Unknown Sex and Gender Information Value Date Recorded Sex Assigned at Not on file 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 Gender Identity Not on file Sexual Orientation Not on file documented as of this encounter Miscellaneous Notes * Telephone Encounter - Jillian Mccloud - 10/07/2021 9:52 AM CST PT HAS CANCELLED 2 PRIOR NEW PT APPT, I CALLED AGAIN 10/07/2021 @ 950AM TO TRY TO RESCHEDULE, LEFT V/M ON PHONE, CALLED DR RENTERIA TO ADVISE HIM ALSO ROAD TRACK MECHANIC documented in this encounter Plan of Treatment Not on file documented as of this encounter Visit Diagnoses Not on filedocumented in this encounter Care Teams Respiratory Equipment Assistant Relationship Specialty Start Date End Date Alexy Renteria MD [address] [facility] [address] [place] [address] PCP - General Internal Medicine 08/15/21 05/20/23 Namita Mccarthy APRN, MECHANICAL PROJECT ENGINEER [address] [place] [address] 2 [place] [address] PCP - General Advanced Practice Nurse 05/21/23 Yusuf Stewart DO [address] [place] [phone] Consulting Physician Oncology 08/15/21 documented as of this encounter
--- OUTSIDE RECORDS SUMMARY | 2025-06-16 14:04 | XMS_ITS | Clinical Summary ---
Author Organization [facility] Address [address] [place] [address] Care Team Providers Care Parking Lot Supervisor Name Role Phone Unavailable Primary Care [...] 50 mg by mouth daily. Active zoledronic iwzw-vckvmdzM-j ater (RECLAST) 5 mg/100 mL Piggyback Inject 5 mg by intravenous injection. Active Active Problems No known active problems Encounters Date Type Department Care Team Description 06/16/2025 1:15 PM CDT Office Visit [facility] Oncology and Hematology - [place] [address] [address] Arsh Mayberry MD CLL (chronic lymphocytic leukemia) (Primary Dx) 05/12/2025 External Device Data STL ABSTRACTION Provider, Abstract 04/29/2025 External Device Data STL ABSTRACTION Provider, Abstract 04/15/2025 External Device Data STL ABSTRACTION Provider, Abstract 03/25/2025 External Device Data STL ABSTRACTION Provider, Abstract 03/25/2025 External Device Data STL ABSTRACTION Provider, Abstract 03/25/2025 External Device Data STL ABSTRACTION Provider, Abstract [...] on file 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 [address] [place] [address] Arsh Mayberry MD [address] [facility] [address] [place] [address] Health Maintenance Due Date Last Done Comments Traditional Medicare (ACO) A nnual Wellness Visit 01/17/1964 RSV VACCINE (60+ or ) (1 - 1-dose 75+ series) 01/17/2020 INFLUENZA VACCINE (#1) 2025 3, 07/19/2022, 07/19/2022, Additional history exists COVID-19 Vaccine (2024-2 6 season) 2025 08/17/2021, 12/06/2020, 11/08/2020 OSTEOPOROSIS SCREENING 06/30/2027 06/30/2022, 2017 DTAP/TDAP/TD VACCINES (2 - T d or Tdap) 05/09/2028 05/09/2018 ZOSTER VACCINE Completed 02/20/2019, 11/18/2018 PNEUMOCOCCAL VACCINE 50+ YEARS Completed 05/04/2020 , 04/22/2018 Insurance MEDICARE PART A AND B AETNA MEDICARE SUPP AESSI
--- OUTSIDE RECORDS SUMMARY | 2025-06-16 14:04 | XMS_ITS | Clinical Summary ---
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 Gender Identity Not on file Sexual Orientation Not on file Last Filed Vital Signs Vital Sign Reading Time Taken Comments Blood Pressure 134/68 05/20/2024 2:16 PM CDT Pulse 64 05/20/2024 2:16 PM CDT Temperature 36.6 C (97.8 F) 05/20/2024 2:16 PM CDT Respiratory Rate 18 05/20/2024 2:16 PM CDT Oxygen Saturation 97% 05/20/2024 2: 16 PM CDT Inhaled Oxygen Concentration - - Weight 65.6 kg (144 lb 11.2 oz) 05/20/2024 2:16 PM CDT Height 157.5 cm (5' 2) 05/20/2024 2:16 PM CDT Body Mass Index 26.47 05/20/2024 2:16 PM CDT Plan of Treatment Health Maintenance Due Date Last Done Comments DEXA Bone Density 1945 Hepatitis C Virus (HCV) Screening 1945 Medicare Initial AWV [id number] 01/08/2011 Respiratory Syncytial Virus (RSV) Immunization (Adult) (1 - 1-dose 75+ series) 01/17/2020 Influenza Immunization (#1) 2025 11/0 05/2022, 07/19/2022, 06/21/2021, Additional history exists SARS-COV-2 Immunization ( season) 2025 08/17/2021, 12/06/2020, 11/08/2020 DTaP/Tdap/Td Immunization Discontinued 05/09/2018, TdaP Immunization Completed 05/09/2018, 05/08/2018 Zoster Immunization Completed 02/20/2019, 9 Pneumococcal Immunization (50+ years) Completed 05/04/2020, 04/22/2018, 04/21/2018 Hepatitis B Immunization Aged Out No longer eligible based on patient's age to complete this topic Human Papillomavirus (HPV) Immunization Aged Out No longer eligible based on patient's age to complete this topic Meningococcal Immunization (ACWY) Aged Out No longer eligible based on patient's age to complete this topic Rotavirus Immunization Aged Out No lo nger eligible based on patient's age to complete this topic Insurance MEDICARE AETNA SENIOR SUPPLEMENTAL Advance Directives Documents on File Type Date Recorded 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
--- OUTSIDE RECORDS SUMMARY | 2025-06-16 14:04 | XMS_ITS | Clinical Summary ---
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
--- OUTSIDE RECORDS SUMMARY | 2025-06-16 14:04 | XMS_ITS | Encounter Summary ---
Author Organization [facility] Address [address] [place] [address] Care Team Providers Care Health Care Technician Name Role Phone Alexy Wright MD Primary Care Provider [phone] Encounter Details Date Type Department Care Team (Late st Contact Info) Description 07/26/2022 Therapy Plan [facility] Infusion Services [address] [facility] [address] [address] [place], [place] [id number] Alexy Wright MD [address] [place] [address] Social History Tobacco Use Types [...] Primary documented in this encounter Care Teams Health Care Technician Relationship Specialty Start Date End Date Alexy Wright MD [address] [place] [address] PCP - General INTERNAL MEDICINE 07/03/19 documented as of this encounter
--- OUTSIDE RECORDS SUMMARY | 2025-06-16 14:04 | XMS_ITS | Encounter Summary ---
Author Organization [facility] Address 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
[2025-06-16 16:22] LABS: Alanine Aminotransferase 29 U/L (6-35); Albumin Level 4.2 g/dL (3.5-5.1); Alkaline Phosphatase 78 U/L (38-126); Anion Gap 5 mmol/L (4-12); Aspartate Amino Transferase 111 U/L (14-36); Bilirubin,Total 1.4 mg/dL (0.2-1.3); Blood Urea Nitrogen 13 mg/dL (7-17); Calcium 9.1 mg/dL (8.4-10.2); Carbon Dioxide 28 mmol/L (22-30); Chloride 104 mmol/L (98-107); Estimated Glomerular Filt Rate 57; Glucose 117 mg/dL (65-110); Potassium 3.8 mmol/L (3.4-5.0); Sodium 137 mmol/L (137-145); Total Protein 7.1 g/dL (6.3-8.2)
== END 2025-06-16 13:11 | disposition home or self-care (01) ==
PROVIDERS: PCP Nurse Practitioner Family; Visit Provider Internal Medicine Hematology & Oncology
DX: C91.10 Chronic lymphocytic leukemia of B-cell type not having achieved remission (principal)
CPT/HCPCS: 36415; 80047; 80053; 83615; 85025